=== PATIENT | female | born 1975 | race African-American/Black ===

== ENCOUNTER 2017-10-12 11:27 | Emergency (ER) | payer OTHER ==
[~2017-10-12] VITALS: Ht 157.5 cm; Wt 84.8 kg
[2017-10-12] MEDS ORDERED: MORPHINE SULFATE 4 MG/ML SYR IV STA (12:39)
[2017-10-12] MEDS ORDERED: SODIUM CHLORIDE 0.9% 1000ML 1,000 ML IV STA (12:39)
[2017-10-12] MEDS ORDERED: ONDANSETRON HCL INJ 2 MG/ML VIAL IV STA ×2 (12:39→15:15)
[2017-10-12] MEDS ORDERED: MORPHINE SULFATE 2 MG/ML SYR ONE (13:29)
[2017-10-12 14:28] LABS: BASOPHILS % 0.5 % (0.0-1.0); EOSINOPHILS # (AUTO) 0.1 (0.0-0.4); HEMOGLOBIN 13.5 g/dL (12.0-16.0); LYMPHOCYTES # (AUTO) 3.3 (1.0-3.2); LYMPHOCYTES % 43.2 % (18.0-39.1); MEAN CORPUSCULAR HEMOGLOBIN 31.8 pg (28-32); MEAN CORPUSCULAR HGB CONC 34.6 g/dL (31-35); MEAN CORPUSCULAR VOLUME 91.8 fL (81-99); MONOCYTES # (AUTO) 0.4 (0.2-0.8); NEUTROPHILS # (AUTO) 3.9 (2.1-6.9); NEUTROPHILS % 50.2 % (38.7-80.0); PLATELET COUNT 206 x10e3/uL (140-360); RED BLOOD COUNT 4.25 x10e6/uL (3.6-5.1)
[2017-10-12 14:30] LABS: BILIRUBIN,URINE NEGATIVE (NEGATIVE); KETONES,URINE NEGATIVE (NEGATIVE); LEUKOCYTE ESTERASE ,URINE NEGATIVE (NEGATIVE); NITRITE,URINE NEGATIVE (NEGATIVE); PROTEIN,URINE DIPSTICK NEGATIVE (NEGATIVE); URINE UROBILINOGEN 0.2 mg/dL (0.2 - 1)
[2017-10-12 14:33] LABS: CLARITY,URINE CLEAR (CLEAR); COLOR,URINE YELLOW (YELLOW)
[2017-10-12 14:43] LABS: ALANINE AMINOTRANSFERASE 122 IU/L (0-55); ALBUMIN 3.8 g/dL (3.5-5.0); ALKALINE PHOSPHATASE 94 IU/L (40-150); ANION GAP 13.6 mmol/L (8-16); BLOOD UREA NITROGEN 8 mg/dL (7-26); BUN/CREATININE RATIO 11 (6-25); CALCIUM 8.7 mg/dL (8.4-10.2); CARBON DIOXIDE 23 mmol/L (22-29); CHLORIDE 107 mmol/L (98-107); CREATININE, SERUM 0.71 mg/dL (0.57-1.11); EST GLOMERULAR FILTRATION RATE > 60 ML/MIN (60-); GLUCOSE 263 mg/dL (74-118); LIPASE 20 U/L (8-78); POTASSIUM 3.6 mmol/L (3.5-5.1); SODIUM 140 mmol/L (136-145)
[2017-10-12 14:57] LABS: EPITHELIAL CELLS,URINE RARE /LPF; RBC,URINE 0-5 /HPF (0-5); WBC,URINE (MAN) 0-5 /HPF (0-5)
--- NOTE | 2017-10-12 15:02 | Diagnostic Imaging Report ---
PROCEDURE: CT ABDOMEN AND PELVIS WITHOUT CONTRAST TECHNIQUE: The abdomen and pelvis were scanned utilizing a multidetector helical scanner from the diaphragm to the lesser trochanter. Patient was unable tolerate full dose of oral contrast. No IV contrast was administered due to history of iodine allergy. Coronal and sagittal multiplanar reformations were obtained. COMPARISON: Patients [facility], , SMALL BOWEL SERIES, 02/16/2017, 9:48. INDICATIONS: ABDOMINAL PAIN, NAUSEA FINDINGS: ABSENCE OF INTRAVENOUS CONTRAST DECREASES SENSITIVITY FOR DETECTION OF FOCAL LESIONS AND VASCULAR PATHOLOGY. LOWER THORAX: 3-4 mm pulmonary nodule in the right lower lobe (series 2 image 2). HEPATOBILIARY: Normal hepatic size and contour. No focal lesions. Mild prominence of the central intrahepatic bile ducts. The common bile duct measures approximately 9 mm at the dimitri hepatis. Cholecystectomy clips. SPLEEN: No splenomegaly. PANCREAS: No focal masses or ductal dilatation. ADRENALS: No adrenal nodules. KIDNEYS/URETERS: No hydronephrosis, stones, or solid mass lesions. PELVIC ORGANS/BLADDER: Bladder is unremarkable. Uterus is absent. No adnexal masses. PERITONEUM / RETROPERITONEUM: No free air or fluid. LYMPH NODES: No lymphadenopathy. VESSELS: Unremarkable. GI TRACT: No bowel dilation or evidence of obstruction. A small amount of contrast is noted in the stomach lumen only. Questionable mild wall thickening in the stomach antrum (series 2, image 25), however, the stomach is mostly decompressed. Rest of the bowel shows no wall thickening. Scattered diverticula in the ascending, transverse, descending, and sigmoid colon, without diverticulitis. No pericolonic inflammatory changes. Appendix is well identified and normal in caliber (coronal image 60). BONES AND SOFT TISSUES: No acute bony abnormalities. No lytic lesions. Tiny fat containing umbilical hernia. Soft tissues are otherwise unremarkable. IMPRESSION: 1. questionable mild wall thickening in the stomach antrum, which may be partly due to decompressed state. Gastritis is a less likely consideration, however, could be considered in the setting of nausea and vomiting. Rest of the bowel is unremarkable. 2. Mild prominence of the central intrahepatic bile ducts and common bile duct, likely reflecting post cholecystectomy status. 3. 3-4 mm pulmonary nodule in the right lower lobe. If this is a low risk patient, no further followup is indicated. 4. Colonic diverticulosis, without diverticulitis. Henri Swann M.D. Dictated by: Henri Swann M.D. on 10/12/2017 at 15:09 Electronically approved by: Henri Swann M.D. on 10/12/2017 at 15:09
[2017-10-12 15:04] LABS: PREGNANCY TEST, URINE NEGATIVE (NEGATIVE)
[2017-10-12] MEDS ORDERED: MORPHINE SULFATE 4 MG/ML SYR IV PRN (15:15)
[2017-10-12] MEDS ORDERED: MORPHINE SULFATE 5 MG/ML VIAL IV SCH (15:30)
[2017-10-12 16:44] VITALS: BP 136/90
== END 2017-10-12 16:40 | disposition home or self-care (01) ==
LOC: ER 11:27
DX: R10.84 Generalized abdominal pain (principal); R11.2 Nausea with vomiting, unspecified; R19.7 Diarrhea, unspecified; I10 Essential (primary) hypertension; E11.9 Type 2 diabetes mellitus without complications
CPT/HCPCS: 36415; 74176; 80053; 81001; 81025; 83690; 85025; 99284; J2270 ×2; J2405; J7030

== ENCOUNTER 2018-11-04 21:21 | Emergency (ER) | payer OTHER ==
[~2018-11-04] VITALS: Ht 157.5 cm; Wt 82.1 kg
--- OUTSIDE RECORDS SUMMARY | 2018-11-04 21:24 | XMS REPORT ---
[facility] Address Unknown Phone Unavailable Care Team Providers Care Field Marketing Lead Name Role Phone Rianna DIA Unavailable Unavailable Problems This patient has no known problems. Allergies, Adverse Reactions, Alerts This patient has no known allergies or adverse reactions. Medications This patient has no known medications. Results Test Description Test Time Test Comments Text Results Atomic Results Result Comments CT ABDOMEN/PELVIS WO [place] [address] Patient Name: NORMA MARIN MR #: [id number] : 1975 Age/Sex: 42/F Req #: [id number] Adm Physician: Ordered by: TORY RHODES OUTSIDE UPHOLSTERER Report #: [id number] Location: ER Room/Bed: Procedure: [id number] CT/CT ABDOMEN/PELVIS WO Exam Date: 10/12/17 Exam Time: 1415 REPORT STATUS: Signed PROCEDURE: CT ABDOMEN AND PELVIS WITHOUT CONTRAST TECHNIQUE: The abdomen and pelvis were scanned utilizing a multidetector helical scanner from the diaphragm to the lesser trochanter. Patient was unable tolerate full dose of oral contrast. No IV contrast was administered due to history of iodine allergy. Coronal and sagittal multiplanar reformations were obtained. COMPARISON: Patients [facility], DX, SMALL BOWEL SERIES, 02/16/2017, 9:48. INDICATIONS: ABDOMINAL PAIN, NAUSEA FINDINGS: ABSENCE OF INTRAVENOUS CONTRAST DECREASES SENSITIVITY FOR DETECTION OF FOCAL LESIONS AND VASCULAR PATHOLOGY. LOWER THORAX: 3-4 mm pulmonary nodule in the right lower lobe (series 2 image 2). HEPATOBILIARY: Normal hepatic size and contour. No focal lesions. Mild prominence of the central intrahepatic bile ducts. The common bile duct measures approximately 9 mm at the dimitri hepatis. Cholecystectomy clips. SPLEEN: No splenomegaly. PANCREAS: No focal masses or ductal dilatation. ADRENALS: No adrenal nodules. KIDNEYS/URETERS: No hydronephrosis, stones, or solid mass lesions. PELVIC ORGANS/BLADDER: Bladder is unremarkable. Uterus is absent. No adnexal masses. PERITONEUM / RETROPERITONEUM: No free air or fluid. LYMPH NODES: No lymphadenopathy. VESSELS: Unremarkable. GI TRACT: No bowel dilation or evidence of obstruction. A small amount of contrast is noted in the stomach lumen only. Questionable mild wall thickening in the stomach antrum (series 2, image 25), however, the stomach is mostly decompressed. Rest of the bowel shows no wall thickening. Scattered diverticula in the ascending, transverse, descending, and sigmoid colon, without diverticulitis. No pericolonic inflammatory changes. Appendix is well identified and normal in caliber (coronal image 60). BONES AND SOFT TISSUES: No acute bony abnormalities. No lytic lesions. Tiny fat containing umbilical hernia. Soft tissues are otherwise unremarkable. IMPRESSION: 1. questionable mild wall thickening in the stomach antrum, which may be partly due to decompressed state. Gastritis is a less likely consideration, however, could be considered in the setting of nausea and vomiting. Rest of the bowel is unremarkable. 2. Mild prominence of the central intrahepatic bile ducts and common bile duct, likely reflecting post cholecystectomy status. 3. 3-4 mm pulmonary nodule in the right lower lobe. If this is a low risk patient, no further followup is indicated. 4. Colonic diverticulosis, without diverticulitis. Andrew Swann M.D. Dictated by: Andrew Swann M.D. on 10/12/2017 at 15:09 Electronically approved by: Andrew Swann M.D. on 10/12/2017 at 15:09 Dictated By: ANDREW SWANN MD [id number] Transcribed By: SONU on 10/12/17 4026 COPY TO: TORY RHODES NP
--- OUTSIDE RECORDS SUMMARY | 2018-11-04 21:24 | XMS REPORT | Clinical Summary ---
Author Author [facility] Organization [facility] Address Unknown Phone Unavailable Care Team Providers Care Fuel Storage Technician Name Role Phone Dileep Carballo MD PCP Allergies Comments Active Allergy Reactions Severity Noted Date Aspirin Shortness Of High 12/19/2016 Breath Iodine 12/19/2016 Butorphanol Tartrate Hives 12/19/2016 Medications End Date Status Medication Sig Dispensed Refills Start Date Active PROAIR HFA 90 Inhale 1 puff 0 mcg/actuation inhaler every 4 7 (four) hours as needed. Active amLODIPine (NORVASC) 10 Take 10 mg by 0 mg tablet mouth daily. 7 Active metFORMIN (GLUCOPHAGE) Take 1,000 mg 0 1,000 mg tablet by mouth 2 7 (two) times a day with meals. Active metoprolol tartrate Take 50 mg by 0 (LOPRESSOR) 50 mg tablet mouth 2 (two) 7 times a day. Active keTOROlac (TORadol) 10 mg Take 10 mg by 0 tablet mouth every 6 (six) hours as needed for moderate pain. Active enalapril (VASOTEC) 10 MG Take 10 mg by 0 tablet mouth daily. Active HYDROcodone-acetaminophen Take 1 tablet 0 (NORCO) 10-325 mg per by mouth tablet every 6 (six) hours as needed for moderate pain. 11/03/2017 Discontinued acetaminophen-codeine Take 1 tablet 0 (TYLENOL WITH CODEINE #3) by mouth 300-30 mg per tablet every 4 (four) hours as needed for moderate pain. 11/08/2017 aluminum-magnesium Take 30 mL by 450 mL 0 hydroxide (MAALOX) mouth 3 8 200-200 mg/5 mL (three) times suspension a day before meals for 5 days. 11/08/2017 ranitidine (ZANTAC) 150 Take 1 tablet 10 tablet 0 MG tablet (150 mg 8 total) by mouth 2 (two) times a day for 5 days. 11/06/2017 acetaminophen-codeine Take 1 tablet 12 tablet 0 (TYLENOL WITH CODEINE #3) by mouth 8 300-30 mg per tablet every 6 (six) hours as needed for moderate pain for up to 3 days. 11/06/2017 ondansetron ODT Take 1 tablet 9 tablet 0 (ZOFRAN-ODT) 4 MG (4 mg total) 8 disintegrating tablet by mouth every 8 (eight) hours as needed for nausea or vomiting for up to 3 days. 02/26/2018 ciprofloxacin (CIPRO) 500 Take 1 tablet 20 tablet 0 MG tablet (500 mg 8 total) by mouth 2 (two) times a day for 10 days. 02/16/2018 fluconazole (DIFLUCAN) Take 1 tablet 1 tablet 0 150 MG tablet (150 mg 8 total) by mouth once for 1 dose. Status Hospital, Clinic, or Ordered Dose Route Frequency Start End Date Other Facility Date Administered Medication Active cefTRIAXone (ROCEPHIN) 1 g IV once 02/17/20 injection 1 g 18 Active Problems Not on file Encounters Care Team Description Date Type Specialty Blaise Kaufman MD Pyelonephritis (Primary Dx) 02/16/2018 Emergency Emergency Medicine - 02/17/2018 Hola Elizabeth PA-C Siddiqi, Amaan H, MD Sprain of right wrist, initial encounter (Primary Dx); Fall, initial encounter 12/17/2017 Emergency Emergency Medicine Sathish Chopra MD Non-intractable vomiting with nausea, unspecified vomiting type (Primary Dx); Hyperglycemia 11/03/2017 Emergency Emergency Medicine after 11/03/2017 Social History Date Tobacco Use Types Packs/Day Years Used Quit: 10/31/2016 Former Smoker Smokeless Tobacco: Never Used Alcohol Use Drinks/Week oz/Week Comments No Sex Assigned at Date Recorded Not on file Industry Job Start Date Occupation Not on file Not on file Not on file Travel End Travel History Travel Start No recent travel history available. Last Filed Vital Signs Time Taken Vital Sign Reading 02/16/2018 11:36 PM CDT Blood Pressure 145/90 02/16/2018 11:36 PM CDT Pulse 89 02/16/2018 11:36 PM CDT Temperature 37.1 C (98.8 F) 02/16/2018 11:36 PM CDT Respiratory Rate 17 02/16/2018 11:36 PM CDT Oxygen Saturation 95% - Inhaled Oxygen - Concentration 02/16/2018 6:34 PM CDT Weight 86.2 kg (190 lb) 02/16/2018 6:34 PM CDT Height 157.5 cm (5' 2") 02/16/2018 6:34 PM CDT Body Mass Index 34.75 Plan of Treatment Health Maintenance Due Date Last Done Comments CERVICAL CANCER SCREENING 1995 INFLUENZA VACCINE 05/31/2018 Procedures Comments Procedure Name Priority Date/Time Associated Diagnosis ZZESTIMATED GFR STAT 02/16/2018 9:38 PM CDT COMPREHENSIVE METABOLIC STAT 02/16/2018 PANEL 9:38 PM CDT HC COMPLETE BLD COUNT STAT 02/16/2018 W/AUTO DIFF 9:[address] RENAL STONE PROTOCOL STAT 02/16/2018 9:27 PM CDT URINALYSIS SCREEN AND STAT 02/16/2018 MICROSCOPY, WITH REFLEX 7:09 PM CDT TO CULTURE URINE CULTURE STAT 02/16/2018 7:09 PM CDT GRAM STAIN STAT 02/16/2018 7:09 PM CDT FL APPLY LONG ARM SPLINT Routine 12/17/2017 6:32 AM FURNACE ROASTER XR HAND 3+ VW RIGHT STAT 12/17/2017 2:10 AM FURNACE ROASTER XR WRIST 3+ VW RIGHT STAT 12/17/2017 2:10 AM FURNACE ROASTER XR ELBOW 3+ VW RIGHT STAT 12/17/2017 2:10 AM FURNACE ROASTER ECG ED PRELIMINARY Routine 11/03/2017 INTERPRETATION 8:09 PM FURNACE ROASTER HCG QUALITATIVE, URINE STAT 11/03/2017 SCREEN 5:59 PM FURNACE ROASTER URINALYSIS SCREEN AND STAT 11/03/2017 MICROSCOPY, WITH REFLEX 5:59 PM FURNACE ROASTER TO CULTURE URINE CULTURE STAT 11/03/2017 5:[address] RENAL STONE PROTOCOL STAT 11/03/2017 4:45 PM FURNACE ROASTER ECG 12-LEAD STAT 11/03/2017 3:29 PM FURNACE ROASTER XR CHEST 1 VW PORTABLE STAT 11/03/2017 2:54 PM FURNACE ROASTER HC COMPLETE BLD COUNT STAT 11/03/2017 W/AUTO DIFF 2:46 PM FURNACE ROASTER VENOUS BLOOD GAS STAT 11/03/2017 2:43 PM FURNACE ROASTER TROPONIN STAT 11/03/2017 2:40 PM FURNACE ROASTER ZZESTIMATED GFR STAT 11/03/2017 2:40 PM FURNACE ROASTER BETA HYDROXYBUTYRATE STAT 11/03/2017 2:40 PM FURNACE ROASTER LIPASE LEVEL STAT 11/03/2017 2:40 PM FURNACE ROASTER HEPATIC FUNCTION PANEL STAT 11/03/2017 2:40 PM FURNACE ROASTER BASIC METABOLIC PANEL STAT 11/03/2017 2:40 PM FURNACE ROASTER BEDSIDE GLUCOSE STAT 11/03/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 POC GLUCOSE Routine 11/03/2017 2:29 PM FURNACE ROASTER after 11/03/2017 Results * Estimated GFR (02/16/2018 9:38 PM CDT) Only the most recent of 2 results within the time period is included. GFR Non Af Amer >90 mL/min/1.73 m2 [facility]PART[facility] OF PATHOLOGY AND GENOMIC MEDICINE GFR Af Amer >90 mL/min/1.73 m2 [facility] DEPART[facility] OF Comment: PATHOLOGY AND Chronic kidney disease: <60 GENOMIC MEDICINE mL/min/1.73m2 Kidney failure: <15 mL/min/1.73m2 The estimated GFR is calculated from the IDMS-traceable Modification of Diet in Renal Disease Equation. The accuracy of the calculation is poor when the creatinine is normal. Calculated values >90 mL/min/1.73m2 are not reported. This equation has not been validated in children (<18 years), women, the elderly (>70 years), or ethnic groups other than Caucasians and Americans. Specimen Plasma specimen Performing Organization Address City/State/Zipcode Phone Number [facility] [address] [place] [address] PATHOLOGY AND GENOMIC MEDICINE * CBC with platelet and differential (02/16/2018 9:38 PM CDT) Only the most recent of 2 results within the time period is included. WBC 11.12 (H) 4.50 - 11.00 k/uL [facility] PATHOLOGY AND GENOMIC MEDICINE RBC 4.13 (L) 4.20 - 5.50 m/uL [facility] PATHOLOGY AND GENOMIC MEDICINE HGB 13.0 12.0 - 16.0 g/dL [facility] PATHOLOGY AND GENOMIC MEDICINE HCT 38.0 37.0 - 47.0 % [facility] PATHOLOGY AND GENOMIC MEDICINE MCV 92.0 82.0 - 100.0 fL [facility] OF PATHOLOGY AND GENOMIC MEDICINE MCH 31.5 27.0 - 34.0 pg [facility] DEPART[facility] OF PATHOLOGY AND GENOMIC MEDICINE MCHC 34.2 31.0 - 37.0 g/dL [facility] DEPARTMENT OF PATHOLOGY AND GENOMIC MEDICINE RDW - SD 40.8 37.0 - 55.0 fL [facility] DEPARTMENT OF PATHOLOGY AND GENOMIC MEDICINE MPV 12.0 8.8 - 13.2 fL [facility] OF PATHOLOGY AND GENOMIC MEDICINE Platelet count 166 150 - 400 k/uL [facility] OF PATHOLOGY AND GENOMIC MEDICINE Nucleated RBC 0.00 /100 WBC [facility] DEPARTMENT OF PATHOLOGY AND GENOMIC MEDICINE Neutrophils 48.5 39.0 - 69.0 % [facility] DE[facility] OF PATHOLOGY AND GENOMIC MEDICINE Lymphocytes 45.8 (H) 25.0 - 45.0 % [facility] DEPARTMENT OF PATHOLOGY AND GENOMIC MEDICINE Monocytes 4.1 0.0 - 10.0 % [facility] DE[facility]MENT OF PATHOLOGY AND GENOMIC MEDICINE Eosinophils 0.9 0.0 - 5.0 % [facility] DEPARTMENT OF PATHOLOGY AND GENOMIC MEDICINE Basophils 0.3 0.0 - 1.0 % [facility] DE[facility]MENT OF PATHOLOGY AND GENOMIC MEDICINE Specimen Blood Performing Organization Address City/State/Zipcode Phone Number [facility] [address] [place] [address] PATHOLOGY AND GENOMIC MEDICINE * Comprehensive metabolic panel (02/16/2018 9:38 PM CDT) Sodium 140 135 - 148 mEq/L [facility] DEPARTMENT OF PATHOLOGY AND GENOMIC MEDICINE Potassium 3.9 3.5 - 5.0 mEq/L [facility] OF PATHOLOGY AND GENOMIC MEDICINE Chloride 99 98 - 112 mEq/L [facility] OF PATHOLOGY AND GENOMIC MEDICINE CO2 27 24 - 31 mEq/L [facility] OF PATHOLOGY AND GENOMIC MEDICINE Anion gap 14 7 - 15 mEq/L [facility] DEPART[facility] OF Comment: PATHOLOGY AND Starting from January GENOMIC MEDICINE , anion gap calculation no longer incorporates potassium. Please note the change. BUN 14 6 - 20 mg/dL [facility] DEPARTMENT OF PATHOLOGY AND GENOMIC MEDICINE Creatinine 0.6 0.5 - 0.9 mg/dL [facility] DE[facility] OF PATHOLOGY AND GENOMIC MEDICINE Glucose 190 (H) 65 - 99 mg/dL [facility] DE[facility]MENT OF PATHOLOGY AND GENOMIC MEDICINE Calcium 9.9 8.3 - 10.2 mg/dL [facility] DEPARTMENT OF PATHOLOGY AND GENOMIC MEDICINE Protein 7.7 6.3 - 8.3 g/dL [facility] DEPARTMENT OF Comment: PATHOLOGY AND [place] GENOMIC MEDICINE 4.6-7.0 g/dL 1 week 4.4-7.6 g/dL 7 months-1year 5.1-7.3 g/dL 1-2 years5.6-7 .5 g/dL >3 years6.0-8 .0 g/dL 18-150 6.3-8.3 g/dL Albumin 4.5 3.5 - 5.0 g/dL [facility] DEPARTMENT OF PATHOLOGY AND GENOMIC MEDICINE A/G ratio 1.4 0.7 - 3.8 [facility] DE[facility] OF PATHOLOGY AND GENOMIC MEDICINE Alkaline phosphatase 88 35 - 104 U/L [facility] DEPARTMENT OF PATHOLOGY AND GENOMIC MEDICINE AST 35 10 - 35 U/L [facility] DEPARTMENT OF PATHOLOGY AND GENOMIC MEDICINE ALT 71 (H) 5 - 50 U/L [facility] OF PATHOLOGY AND GENOMIC MEDICINE Total bilirubin 0.3 0.0 - 1.2 mg/dL [facility] DEPART[facility] OF PATHOLOGY AND GENOMIC MEDICINE Specimen Plasma specimen Performing Organization Address City/State/Zipcode Phone [place] [address] [place] [address] PATHOLOGY AND GENOMIC MEDICINE * CT Renal Stone Protocol (02/16/2018 9:27 PM CDT) Only the most recent of 2 results within the time period is included. Narrative Performed At Examination:[facility] Clinical History: flank pain Comparison: None. Findings: CT scans are performed using radiation dose reduction techniques.Technical factors are evaluated and adjusted to ensure appropriate moderation of exposure.Automated dose management technology is applied to adjust radiation exposure while achieving a diagnostic quality image. CT scan of the abdomen and pelvis was performed without intravenous contrast. The liver, spleen, pancreas, and adrenal glands are unremarkable. The patient is status post cholecystectomy. The kidneys are within normal limits without hydronephrosis or urinary calculus. The appendix is visualized and unremarkable. No bowel thickening or fat stranding is seen. No bowel dilatation is seen. No free air or fluid is seen. Urinary bladder is not well-distended and not well evaluated. The uterus is nonvisualized. Visualized lung bases are clear. IMPRESSION: 1. No acute abnormality identified in the abdomen or pelvis. [facility]-[id number] Procedure Note Interface, Radiology Results Incoming - 02/16/2018 9:43 PM CDT Examination: CT RENAL STONE PROTOCOL Clinical History: flank pain Comparison: None. Findings: CT scans are performed using radiation dose reduction techniques. Technical factors are evaluated and adjusted to ensure appropriate moderation of exposure. Automated dose management technology is applied to adjust radiation exposure while achieving a diagnostic quality image. CT scan of the abdomen and pelvis was performed without intravenous contrast. The liver, spleen, pancreas, and adrenal glands are unremarkable. The patient is status post cholecystectomy. The kidneys are within normal limits without hydronephrosis or urinary calculus. The appendix is visualized and unremarkable. No bowel thickening or fat stranding is seen. No bowel dilatation is seen. No free air or fluid is seen. Urinary bladder is not well-distended and not well evaluated. The uterus is nonvisualized. Visualized lung bases are clear. IMPRESSION: 1. No acute abnormality identified in the abdomen or pelvis. [facility]-[id number] Performing Organization Address City/State/Zipcode Phone Number [facility] [address] [place] [address] * Urinalysis screen and microscopy, with reflex to culture (02/16/2018 7:09 PM CDT) Only the most recent of 2 results within the time period is included. Specimen site Clean catch [facility]PARTMENT OF PATHOLOGY AND GENOMIC MEDICINE Color, UA Yellow [facility]PARTMENT OF PATHOLOGY AND GENOMIC MEDICINE Appearance, UA Cloudy [facility] DEPARTMENT OF PATHOLOGY AND GENOMIC MEDICINE Specific gravity, UA 1.024 1.001 - 1.035 [facility] DEPARTMENT OF PATHOLOGY AND GENOMIC MEDICINE pH, UA 5.0 5.0 - 8.5 [facility] DEPARTMENT OF PATHOLOGY AND GENOMIC MEDICINE Protein, UA 2+ (A) Negative [facility] DEPARTMENT OF PATHOLOGY AND GENOMIC MEDICINE Glucose, UA Negative Negative [facility] DEPARTMENT OF PATHOLOGY AND GENOMIC MEDICINE Ketones, UA Trace (A) Negative [facility] DE[facility] OF PATHOLOGY AND GENOMIC MEDICINE Bilirubin, UA Negative Negative [facility] DEPARTMENT OF PATHOLOGY AND GENOMIC MEDICINE Blood, UA Negative Negative [facility] DEPARTMENT OF PATHOLOGY AND GENOMIC MEDICINE Nitrite, UA Negative Negative [facility] DEPARTMENT OF PATHOLOGY AND GENOMIC MEDICINE Urobilinogen, UA Negative <2.0 [facility] DEPARTMENT OF PATHOLOGY AND GENOMIC MEDICINE Leukocyte esterase, UA Negative Negative [facility] DEPARTMENT OF PATHOLOGY AND GENOMIC MEDICINE Epithelial cells, UA Many /HPF [facility] DEPARTMENT OF PATHOLOGY AND GENOMIC MEDICINE WBC, UA 21-40 (H) 0 - 4 /HPF [facility] DEPARTMENT OF PATHOLOGY AND GENOMIC MEDICINE RBC, UA 21-40 (H) 0 - 5 /HPF [facility]PART[facility] OF PATHOLOGY AND GENOMIC MEDICINE Bacteria, UA Trace None seen [facility] DEPARTMENT OF PATHOLOGY AND GENOMIC MEDICINE Yeast, UA None seen [facility] DEPARTMENT OF PATHOLOGY AND GENOMIC MEDICINE Yeast with pseudohyphae, None seen [facility] DEPARTMENT OF UA PATHOLOGY AND GENOMIC MEDICINE Specimen Urine Performing Organization Address City/State/Zipcode Phone [place] [address] [place] [address] PATHOLOGY AND GENOMIC MEDICINE * Gram stain (02/16/2018 7:09 PM CDT) Gram stain result Few WBC's [facility] DEPARTMENT OF Many Gram positive rods PATHOLOGY AND Comment: GENOMIC MEDICINE Specimen Information Specimen Source: Urine Specimen Site: Clean catch Specimen Urine Performing Organization Address City/State/Zipcode Phone Number [facility] DEPARTMENT OF [address] [place] [address] PATHOLOGY AND GENOMIC MEDICINE * Urine culture (02/16/2018 7:09 PM CDT) Only the most recent of 2 results within the time period is included. Urine culture isolate Mixed Gram positive radhika [facility] DEPARTMENT OF <10-1 cfu/ml PATHOLOGY AND (A) GENOMIC MEDICINE Comment: Specimen Information Specimen Source: Urine Specimen Site: Clean catch Specimen Urine Performing Organization Address [facility] Phone Number [facility] DEPARTMENT OF [address] [place] [address] PATHOLOGY AND GENOMIC MEDICINE * ORTHOPEDIC INJURY TREATMENT (12/17/2017 6:32 AM FURNACE ROASTER) Narrative Performed At Hola Elizabeth PA-C 12/17/20173:19 AM Orthopedic Injury Treatment Performed by: HOLA ELIZABETH Authorized by: HOLA ELIZABETH Consent: Consent obtained:Verbal Consent given by:Patient Risks discussed:Nerve damage, pain and vascular damage Alternatives discussed:No treatment Injury: Injury location:Forearm Forearm injury location:R forearm Pre-procedure assessment: Neurological function: normal Distal perfusion: normal Range of motion: reduced Procedure details: Immobilization:Splint Splint type:Sugar tong Supplies used:Elastic bandage, Ortho-Glass and cotton padding Post-procedure assessment: Neurological function: normal Distal perfusion: normal Range of motion: unchanged Patient tolerance of procedure:Tolerated well, no immediate complications * XR Hand 3+ Vw Right (12/17/2017 2:10 AM FURNACE ROASTER) Narrative Performed At EXAMINATION:XR HAND 3VW RIGHT [facility] CLINICAL HISTORY:fall COMPARISON:None IMPRESSION: No acute fractures or dislocations. Visualized joint spaces are anatomic. Marked soft tissue swelling is seen of the dorsal aspect of the right hand. [facility]-[id number] Procedure Note [facility], Radiology Results Incoming - 12/17/2017 2:29 AM FURNACE ROASTER EXAMINATION: XR HAND 3 VW RIGHT CLINICAL HISTORY: fall COMPARISON: None IMPRESSION: No acute fractures or dislocations. Visualized joint spaces are anatomic. Marked soft tissue swelling is seen of the dorsal aspect of the right hand. [facility]-[id number] Performing Organization Address City/[facility]/Zipcode Phone Number [facility] [address] [place] [address] * XR Wrist 3+ Vw Right (12/17/2017 2:10 AM FURNACE ROASTER) Narrative Performed At EXAMINATION:XR WRIST 3VW RIGHT [facility] CLINICAL HISTORY:fall COMPARISON:None. IMPRESSION: No acute fractures or dislocations. Visualized joint spaces are anatomic. No soft tissue abnormalities. [facility]-[id number] Procedure Note Interface, Radiology Results Incoming - 12/17/2017 2:31 AM FURNACE ROASTER EXAMINATION: XR WRIST 3 VW RIGHT CLINICAL HISTORY: fall COMPARISON: None. IMPRESSION: No acute fractures or dislocations. Visualized joint spaces are anatomic. No soft tissue abnormalities. [facility]-[id number] Performing Organization Address [facility] Phone Number [facility] [address] [place] [address] * XR Elbow 3+ Vw Right (12/17/2017 2:10 AM FURNACE ROASTER) Narrative Performed At EXAMINATION:XR ELBOW 3VW RIGHT [facility] CLINICAL HISTORY:fall COMPARISON:None IMPRESSION: No acute fractures or dislocations. Visualized joint spaces are anatomic. No soft tissue abnormalities. [facility]-[id number] Procedure Note Interface, Radiology Results Incoming - 12/17/2017 2:28 AM FURNACE ROASTER EXAMINATION: XR ELBOW 3 VW RIGHT CLINICAL HISTORY: fall COMPARISON: None IMPRESSION: No acute fractures or dislocations. Visualized joint spaces are anatomic. No soft tissue abnormalities. [facility]-[id number] Performing Organization Address [facility] Phone Number [facility] [address] [place] [address] * ECG ED Preliminary Interpretation - NOT AN ORDER (11/03/2017 8:09 PM FURNACE ROASTER) Narrative Performed At Sathish Chopra MD 11/03/20178:09 PM ECG ED Preliminary Interpretation - Not an Order Performed by: SATHISH CHOPRA Authorized by: SATHISH CHOPRA ECG reviewed by ED Physician in the absence of a soap inspector: yes Interpretation: Interpretation: normal Rate: ECG rate:76 ECG rate assessment: normal Rhythm: Rhythm: sinus rhythm Ectopy: Ectopy: none QRS: QRS axis:Normal Conduction: Conduction: normal ST segments: ST segments:Normal T waves: T waves: normal * hCG qualitative, urine screen (11/03/2017 5:59 PM FURNACE ROASTER) hCG qualitative, urine Negative Negative [facility] DEPARTMENT OF Comment: PATHOLOGY AND The manufacturers stated GENOMIC MEDICINE sensitivity of HcG test for serum is >/=10 mIU/ml and urine is >/=20mIU/ml. Specimen Urine Performing Organization Address [facility] Phone Number [facility] [id number] [place] [address] [place] [address] PATHOLOGY AND GENOMIC MEDICINE * ECG 12 lead (11/03/2017 3:29 PM FURNACE ROASTER) Ventricular rate 76 H MUSE Atrial rate 76 [facility] MUSE FL interval 172 [facility] MUSE QRSD interval 74 [facility] MUSE QT interval 382 H MUSE QTC interval 429 [facility] MUSE P axis 1 56 [facility] MUSE QRS axis 1 53 [facility] MUSE T wave axis 52 [facility] MUSE EKG impression Normal sinus rhythm with sinus [facility] MUSE arrhythmia-Normal ECG-In automated comparison with ECG of 05-MAY-2016 00:24,-No significant change was found- Performing Organization Address [facility] Phone Number [facility] MUSE [address] [place] [address] * XR Chest 1 Vw Portable (11/03/2017 2:54 PM FURNACE ROASTER) Narrative Performed At EXAMINATION:XR CHEST 1 VW PORTABLE [facility] CLINICAL HISTORY:vomitinghigh sugars COMPARISON:May 04, 2016 IMPRESSION: The lungs are clear. The heart is not enlarged. The bony structures are within normal limits. [facility]-[id number] Procedure Note Hm Interface, Radiology Results Incoming - 11/03/2017 3:00 PM FURNACE ROASTER EXAMINATION: XR CHEST 1 VW PORTABLE CLINICAL HISTORY: vomiting high sugars COMPARISON: May 04, 2016 IMPRESSION: The lungs are clear. The heart is not enlarged. The bony structures are within normal limits. [facility]-[id number] Performing Organization Address [facility] Phone Number [facility] [address] [place] [address] * Venous blood gas (11/03/2017 2:43 PM FURNACE ROASTER) pH, venous 7.42 7.32 - 7.42 [facility] DEPARTMENT OF PATHOLOGY AND GENOMIC MEDICINE pCO2, venous 44 (L) 45 - 51 mmHg [facility] DEPARTMENT OF PATHOLOGY AND GENOMIC MEDICINE pO2, venous 68 (H) 25 - 40 mmHg [facility] DEPARTMENT OF PATHOLOGY AND GENOMIC MEDICINE Base excess, venous 3 (H) -2 - 2 meq/L [facility] DEPARTMENT OF PATHOLOGY AND GENOMIC MEDICINE O2 saturation, venous 95 (H) 40 - 70 % [facility] DEPARTMENT OF PATHOLOGY AND GENOMIC MEDICINE Bicarbonate, venous 26.9 21.0 - 28.0 mmol/L [facility] DEPARTMENT OF PATHOLOGY AND GENOMIC MEDICINE FiO2, inspired O2% Unknown % [facility] DEPARTMENT OF PATHOLOGY AND GENOMIC MEDICINE Specimen Blood Performing Organization Address [facility] Phone Number [address] [place] [address] PATHOLOGY AND GENOMIC MEDICINE * Beta hydroxybutyrate (11/03/2017 2:40 PM FURNACE ROASTER) Beta hydroxybutyrate 0.28 (H) 0.02 - 0.27 mmol/L [facility] DEPARTMENT OF PATHOLOGY AND GENOMIC MEDICINE Specimen Serum Performing Organization Address [facility] [place] [address] PATHOLOGY AND GENOMIC MEDICINE * Troponin (11/03/2017 2:40 PM FURNACE ROASTER) Troponin <0.300 0.000 - 0.300 ng/mL [facility] DEPARTMENT OF Comment: PATHOLOGY AND 0.30 - 1.49 GENOMIC MEDICINE ng/mlMay indicate increased risk of acute coronary syndrome. >=1.5 ng/ml Consistent with acute myocardial infarction. The diagnostic value of a single normal or non-diagnostic result is questionable.Serial samples at 2-6 hour intervals are required to rule out acute myocardial injury. Specimen Plasma specimen Performing Organization Address [facility] Phone Number [address] [place] [address] PATHOLOGY AND GENOMIC MEDICINE * Lipase level (11/03/2017 2:40 PM FURNACE ROASTER) Lipase 33 13 - 60 U/L [facility] DEPARTMENT OF PATHOLOGY AND GENOMIC MEDICINE Specimen Plasma specimen Performing Organization Address [facility] Phone Number [address] [place] [address] PATHOLOGY AND GENOMIC MEDICINE * Hepatic function panel (11/03/2017 2:40 PM [facility]URNACE ROASTER) Albumin 4.4 3.5 - 5.0 g/dL [facility] DEPARTMENT OF PATHOLOGY AND GENOMIC MEDICINE Total bilirubin 0.7 0.0 - 1.2 mg/dL [facility] OF PATHOLOGY AND GENOMIC MEDICINE Bilirubin direct 0.2 0.0 - 0.3 mg/dL [facility] OF PATHOLOGY AND GENOMIC MEDICINE Alkaline phosphatase 110 (H) 35 - 104 U/L [facility] DEPARTMENT OF PATHOLOGY AND GENOMIC MEDICINE Protein 8.1 6.3 - 8.3 g/dL [facility] DEPARTMENT OF Comment: PATHOLOGY AND [facility] MEDICINE 4.6-7.0 g/dL 1 week 4.4-7.6 g/dL 7 months-1year 5.1-7.3 g/dL 1-2 years5.6-7 .5 g/dL >3 years6.0-8 .0 g/dL 18-150 6.3-8.3 g/dL ALT 93 (H) 5 - 50 U/L [facility] DEPARTMENT OF PATHOLOGY AND GENOMIC MEDICINE AST 82 (H) 10 - 35 U/L [facility] DEPARTMENT OF PATHOLOGY AND GENOMIC MEDICINE Specimen Plasma specimen Performing Organization Address [facility] [place] Phone Number [address] [place] [address] PATHOLOGY [facility] * Basic metabolic panel (11/03/2017 2:40 PM [facility]NA[facility] ROASTER) Sodium 137 135 - 148 mEq/L [facility] DEPARTMENT OF PATHOLOGY AND GENOMIC MEDICINE Potassium 4.0 3.5 - 5.0 mEq/L [facility] DE[facility]MENT OF PATHOLOGY AND GENOMIC MEDICINE Chloride 95 (L) 98 - 112 mEq/L [facility] DEPARTMENT OF PATHOLOGY AND GENOMIC MEDICINE CO2 25 24 - 31 mEq/L [facility] DE[facility]MENT OF PATHOLOGY AND GENOMIC MEDICINE Anion gap 17 (H) 7 - 15 mEq/L [facility] DEPARTMENT OF Comment: PATHOLOGY AND Starting from January [facility] , anion gap calculation no longer incorporates potassium. Please note the change. BUN 15 6 - 20 mg/dL [facility] DEPARTMENT OF PATHOLOGY AND GENOMIC MEDICINE Creatinine 0.6 0.5 - 0.9 mg/dL [facility] DEPARTMENT OF PATHOLOGY AND GENOMIC MEDICINE Glucose 280 (H) 65 - 99 mg/dL [facility] DEPARTMENT OF PATHOLOGY AND GENOMIC MEDICINE Calcium 10.2 8.3 - 10.2 mg/dL [facility] DEPARTMENT OF PATHOLOGY AND [employer] MEDICINE Specimen Plasma specimen Performing Organization Address [facility] [place] Phone Number [address] [place] [address] PATHOLOGY [facility] GENOMIC [facility] * Bedside glucose (11/03/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) POC glucose 254 Specimen Blood * POC glucose (11/03/2017 2:29 PM FURNACE ROASTER) POC glucose 254 (H) 65 - 99 mg/dL [facility] DEPARTMENT OF Comment: PATHOLOGY AND Meter ID: [id number] GENOMIC MEDICINE Pattern Repair Person: Caden Cruz Performing Organization Address City/State/Zipcode Phone [place] [address] [place] [address] PATHOLOGY AND GENOMIC MEDICINE after 11/03/2017 Insurance Payer Benefit Subscriber ID Type Phone Address Plan / Group AETNA AET[employer] PPO xxxxxxxxxx PPO OPEN CHOICE (Work) Advance Directives Patient has advance care planning documents on file. For more information, bee gamble contact: Terry Ayers [address] [place] [address]
--- NOTE | 2018-11-04 21:50 | NUR ---
PT DOES NOT WANT AN IV STATING "I'M TOO HARD OF A STICK. JUST TAKE BLOOD AND SEE WHAT IT SAYS"
--- NOTE | 2018-11-04 22:00 | NUR ---
PT GETTING RESTLESS IN BED, VERBALIZING THAT SHE WANTS PAIN MEDICATION FOR PAIN CONTROL
[2018-11-04] MEDS ORDERED: ONDANSETRON HCL INJ 2 MG/ML VIAL IV ONE (22:15)
--- NOTE | 2018-11-04 22:30 | NUR ---
PT REFUSES TORADOL IM INJECTION AND PHENERGAN IM INJECTION STATING "I TOOK A TORADOL AT HOME AND IT DID NOTHING, AND I DONT LIKE PHENERGEN. GIVE ME A ZOFRAN"
[2018-11-04] MEDS ORDERED: KETOROLAC TROMETHAMINE 60 MG/2 ML VIAL IM ONE (22:45)
[2018-11-04] MEDS ORDERED: PROMETHAZINE HCL (IM) 25 MG/ML VIAL IM ONE (22:45)
--- NOTE | 2018-11-04 22:45 | NUR ---
PT WANTS TO LEAVE AMA STATING SHE DOES NOT WANT TO WAIT FOR A CT SCAN AND WILL JUST "GO HOME AND DEAL WITH THE PAIN SINCE YOU WONT DO IT HERE"
== END 2018-11-04 22:45 | disposition left against medical advice (07) ==
LOC: FSED 21:21
DX: R10.33 Periumbilical pain (principal); R11.2 Nausea with vomiting, unspecified; R19.7 Diarrhea, unspecified; I10 Essential (primary) hypertension; E11.9 Type 2 diabetes mellitus without complications; Z87.19 Personal history of other diseases of the digestive system
CPT/HCPCS: 99283; J2550

== ENCOUNTER 2019-01-12 18:20 | Inpatient (IN) | payer OTHER ==
[~2019-01-12] VITALS: Ht 157.5 cm; Wt 78.0 kg
[~2019-01-12 18:20] MED LIST: AMLODIPINE BESYL5 MG PO; HYDROCORTISONE5 MG PO; LEVAQUIN500 MG PO; METFORMIN HCL1000 MG PO; METOPROLOL TART50 MG PO; MULTIPLE VITAM1 EACH PO; OMEPRAZOLE40 MG PO; PANTOPRAZOLE SO40 MG PO; PROGESTERONE100 MG PO; TYLENOL WITH C1 EACH PO; VASOTEC10 MG PO
--- OUTSIDE RECORDS SUMMARY | 2019-01-12 18:24 | XMS REPORT | Clinical Summary ---
Author Author [facility] Organization [facility] Address Unknown Phone Unavailable Care Team Providers Care Street Inspector Name Role Phone Dileep Carballo MD PCP [...] hours as needed for moderate pain. Active ciprofloxacin (CIPRO) 500 ciprofloxacin 0 MG tablet 500 mg tablet Active fluconazole (DIFLUCAN) fluconazole 0 150 MG tablet 150 mg tablet Active metroNIDAZOLE (FLAGYL) metronidazole 0 500 MG tablet 500 mg tablet Active omeprazole (PriLOSEC) 40 Take by mouth 2 MG capsule daily. 9 Active sucralfate (CARAFATE) 1 sucralfate 1 0 gram tablet gram tablet Active amLODIPine (NORVASC) 5 mg 0 tablet 8 Active albuterol (PROAIR ProAir HFA 90 0 HFA,PROVENTIL mcg/actuation HFA,VENTOLIN HFA) 90 aerosol mcg/actuation inhaler inhaler Active enalapril (VASOTEC) 10 MG enalapril 0 tablet maleate 10 mg tablet Active metFORMIN (GLUCOPHAGE) metformin 0 1,000 mg tablet 1,000 mg tablet Active metoprolol tartrate metoprolol 0 (LOPRESSOR) 50 mg tablet tartrate 50 mg tablet 02/26/2018 ciprofloxacin (CIPRO) 500 Take 1 tablet 20 tablet 0 MG tablet (500 mg 8 total) by mouth 2 (two) times a day for 10 days. 02/16/2018 fluconazole (DIFLUCAN) Take 1 tablet 1 tablet 0 150 MG tablet (150 mg 8 total) by mouth once for 1 dose. 12/05/2018 dicyclomine (BENTYL) 20 Take 1 tablet 14 tablet 0 mg tablet (20 mg total) 9 by mouth every 6 (six) hours as needed (pain) for up to 7 days. 12/28/2018 ondansetron ODT (ZOFRAN Take 1 tablet 6 tablet 0 ODT) 4 MG disintegrating (4 mg total) 9 tablet by mouth every 8 (eight) hours as needed for nausea or vomiting for up to 30 days. 01/04/2019 sucralfate (CARAFATE) 1 Take 1 tablet 120 tablet 0 gram tablet (1 g total) 9 by mouth 4 (four) times a day for 30 days. 01/04/2019 pantoprazole (PROTONIX) Take 1 tablet 30 tablet 0 20 MG EC tablet (20 mg total) 9 by mouth daily for 30 days. Status Hospital, Clinic, or Ordered Dose Route Frequency Start End Date Other Facility Date Administered Medication Active cefTRIAXone (ROCEPHIN) 1 g IV once 02/17/20 injection 1 g 18 Active Problems Not on file Encounters Care Team Description Date Type Specialty Juan Yee MD Epigastric abdominal pain (Primary Dx) 12/05/2018 Emergency Emergency Medicine Juan Yee MD Gastroenteritis (Primary Dx); Generalized abdominal pain 11/28/2018 Emergency Emergency Medicine Blaise Kaufman MD Pyelonephritis (Primary Dx) 02/16/2018 Emergency Emergency Medicine - 02/17/2018 after 01/11/2018 Social History Date Tobacco Use Types Packs/Day Years Used Light Tobacco Smoker Cigarettes Smokeless Tobacco: Never Used Alcohol Use Drinks/Week oz/Week Comments No Sex Assigned at Date Recorded Not on file Industry Job Start Date Occupation Not on file Not on file Not on file Travel End Travel History Travel Start No recent travel history available. Last Filed Vital Signs Time Taken Vital Sign Reading 12/05/2018 8:56 PM ACCOUNT DEVELOPMENT ASSOCIATE Blood Pressure 150/89 12/05/2018 8:56 PM ACCOUNT DEVELOPMENT ASSOCIATE Pulse 79 12/05/2018 8:56 PM ACCOUNT DEVELOPMENT ASSOCIATE Temperature 36.5 C (97.7 F) 12/05/2018 8:56 PM ACCOUNT DEVELOPMENT ASSOCIATE Respiratory Rate 16 12/05/2018 8:56 PM ACCOUNT DEVELOPMENT ASSOCIATE Oxygen Saturation 98% - Inhaled Oxygen - Concentration 12/05/2018 6:25 PM ACCOUNT DEVELOPMENT ASSOCIATE Weight 83.5 kg (184 lb) 12/05/2018 6:25 PM ACCOUNT DEVELOPMENT ASSOCIATE Height 157.5 cm (5' 2") 12/05/2018 6:25 PM ACCOUNT DEVELOPMENT ASSOCIATE Body Mass Index 33.65 Plan of Treatment Health Maintenance Due Date Last Done Comments CERVICAL CANCER SCREENING 1995 INFLUENZA VACCINE 05/31/2018 Procedures Comments Procedure Name Priority Date/Time Associated Diagnosis CT ABDOMEN PELVIS WO STAT 12/05/2018 CONTRAST 7:17 PM ACCOUNT DEVELOPMENT ASSOCIATE XR CHEST 1 VW PORTABLE STAT 12/05/2018 7:10 PM ACCOUNT DEVELOPMENT ASSOCIATE HCG QUALITATIVE, URINE STAT 12/05/2018 SCREEN 7:00 PM ACCOUNT DEVELOPMENT ASSOCIATE URINALYSIS SCREEN AND STAT 12/05/2018 MICROSCOPY, WITH REFLEX 7:00 PM ACCOUNT DEVELOPMENT ASSOCIATE TO CULTURE TROPONIN STAT 12/05/2018 6:50 PM ACCOUNT DEVELOPMENT ASSOCIATE ESTIMATED GFR STAT 12/05/2018 6:50 PM ACCOUNT DEVELOPMENT ASSOCIATE LIPASE LEVEL STAT 12/05/2018 6:50 PM ACCOUNT DEVELOPMENT ASSOCIATE AMYLASE LEVEL STAT 12/05/2018 6:50 PM ACCOUNT DEVELOPMENT ASSOCIATE COMPREHENSIVE METABOLIC STAT 12/05/2018 PANEL 6:50 PM ACCOUNT DEVELOPMENT ASSOCIATE HC COMPLETE BLD COUNT STAT 12/05/2018 W/AUTO DIFF 6:50 PM ACCOUNT DEVELOPMENT ASSOCIATE ECG ED PRELIMINARY Routine 12/05/2018 INTERPRETATION 6:28 PM ACCOUNT DEVELOPMENT ASSOCIATE ECG 12-LEAD Routine 12/05/2018 6:21 PM ACCOUNT DEVELOPMENT ASSOCIATE ECG ED PRELIMINARY Routine 11/28/2018 INTERPRETATION 9:33 PM ACCOUNT DEVELOPMENT ASSOCIATE ECG 12-LEAD STAT 11/28/2018 8:58 PM ACCOUNT DEVELOPMENT ASSOCIATE ESTIMATED GFR STAT 11/28/2018 7:52 PM ACCOUNT DEVELOPMENT ASSOCIATE TROPONIN STAT 11/28/2018 7:52 PM ACCOUNT DEVELOPMENT ASSOCIATE CREATINE KINASE, TOTAL STAT 11/28/2018 (CPK) 7:52 PM ACCOUNT DEVELOPMENT ASSOCIATE LIPASE LEVEL STAT 11/28/2018 7:52 PM ACCOUNT DEVELOPMENT ASSOCIATE COMPREHENSIVE METABOLIC STAT 11/28/2018 PANEL 7:52 PM ACCOUNT DEVELOPMENT ASSOCIATE PARTIAL THROMBOPLASTIN STAT 11/28/2018 TIME (PTT) 7:52 PM ACCOUNT DEVELOPMENT ASSOCIATE PROTHROMBIN TIME WITH INR STAT 11/28/2018 7:52 PM ACCOUNT DEVELOPMENT ASSOCIATE HC COMPLETE BLD COUNT STAT 11/28/2018 W/AUTO DIFF 7:52 PM ACCOUNT DEVELOPMENT ASSOCIATE URINALYSIS SCREEN AND STAT 11/28/2018 MICROSCOPY, WITH REFLEX 7:45 PM ACCOUNT DEVELOPMENT ASSOCIATE TO CULTURE CT ABDOMEN PELVIS WO STAT 11/28/2018 CONTRAST 7:35 PM ACCOUNT DEVELOPMENT ASSOCIATE XR CHEST 2 VW STAT 11/28/2018 7:19 PM ACCOUNT DEVELOPMENT ASSOCIATE ZZESTIMATED GFR STAT 02/16/2018 9:38 PM CDT COMPREHENSIVE METABOLIC STAT 02/16/2018 PANEL 9:38 PM CDT HC COMPLETE BLD COUNT STAT 02/16/2018 W/AUTO DIFF 9:[address] RENAL STONE PROTOCOL STAT 02/16/2018 9:27 PM CDT URINALYSIS SCREEN AND STAT 02/16/2018 MICROSCOPY, WITH REFLEX 7:09 PM CDT TO CULTURE URINE CULTURE STAT 02/16/2018 7:09 PM CDT GRAM STAIN STAT 02/16/2018 7:09 PM CDT after 01/11/2018 Results * CT Abdomen Pelvis Wo Contrast (12/05/2018 7:17 PM ACCOUNT DEVELOPMENT ASSOCIATE) Only the most recent of 2 results within the time period is included. Narrative Performed At EXAMINATION:CT ABDOMEN PELVIS WO CONTRAST [facility] CLINICAL HISTORY:Abd painunspecified COMPARISON:CT abdomen and pelvis without contrast dated 11/28/2018 TECHNIQUE:CT of the abdomen and pelvis without intravenous contrast. Absence of intravenous contrast decreases sensitivity for detection of focal lesions and vascular pathology. CT imaging was performed with iterative reconstruction techniques and/or automated exposure control to reduce radiation dose. FINDINGS: LOWER THORAX:The visualized heart and pericardium appear unremarkable. There is a calcified granuloma in the right lower lobe. There is minimal subpleural atelectasis/scarring in the dependent portions of both lungs.There is no pleural effusion. HEPATOBILIARY:There is mildly diffusely decreased attenuation of the liver parenchyma, consistent with hepatic steatosis.There is no definite suspicious solid mass.Patient is status post cholecystectomy.There is no biliary ductal dilatation. SPLEEN:No splenomegaly. PANCREAS:No focal masses or ductal dilation. ADRENALS:No adrenal nodules. KIDNEYS:There is no urolithiasis.There is no hydroureter/hydronephrosis.There is no definite suspicious solid mass. PELVIC ORGANS:The urinary bladder appears unremarkable. Patient is status post hysterectomy. The bilateral adnexal regions appear grossly unremarkable. GI TRACT:There is mild circumferential wall thickening of the lower esophagus which may reflect under distention and/or esophagitis. There is a small hiatal hernia.There is no gastrointestinal distention to suggest obstruction. There is no definite pathologic gastrointestinal wall thickening, with note made that the absence of enteral contrast and underdistention limit evaluation. There are a few scattered small colonic diverticula without evidence of acute diverticulitis.There is no pneumatosis intestinalis.There is increased fecal retention, suggestive of constipation.The appendix appears normal. PERITONEUM/RETROPERITONEUM:There is no free intraperitoneal air. There is no free fluid or focal drainable collection. LYMPHATIC: There is no lymphadenopathy. VESSELS: There is trace atherosclerotic calcification of the arterial vasculature.There is no evidence of aortic aneurysm. BONES AND SOFT TISSUES:The visualized skeleton appears unremarkable. Postsurgical changes are seen along the ventral abdominal wall. There is mild focal eventration of the periumbilical abdominal wall. There is no focal drainable fluid collection. IMPRESSION: No acute abdominal or pelvic pathology. [id number] Procedure Note [facility], Radiology Results Incoming - 12/05/2018 7:25 PM ACCOUNT DEVELOPMENT ASSOCIATE EXAMINATION: CT ABDOMEN PELVIS WO CONTRAST CLINICAL HISTORY: Abd pain unspecified COMPARISON: CT abdomen and pelvis without contrast dated 11/28/2018 TECHNIQUE: CT of the abdomen and pelvis without intravenous contrast. Absence of intravenous contrast decreases sensitivity for detection of focal lesions and vascular pathology. CT imaging was performed with iterative reconstruction techniques and/or automated exposure control to reduce radiation dose. FINDINGS: LOWER THORAX: The visualized heart and pericardium appear unremarkable. There is a calcified granuloma in the right lower lobe. There is minimal subpleural atelectasis/scarring in the dependent portions of both lungs. There is no pleural effusion. HEPATOBILIARY: There is mildly diffusely decreased attenuation of the liver parenchyma, consistent with hepatic steatosis. There is no definite suspicious solid mass. Patient is status post cholecystectomy. There is no biliary ductal dilatation. SPLEEN: No splenomegaly. PANCREAS: No focal masses or ductal dilation. ADRENALS: No adrenal nodules. KIDNEYS: There is no urolithiasis. There is no hydroureter/hydronephrosis. There is no definite suspicious solid mass. PELVIC ORGANS: The urinary bladder appears unremarkable. Patient is status post hysterectomy. The bilateral adnexal regions appear grossly unremarkable. GI TRACT: There is mild circumferential wall thickening of the lower esophagus which may reflect under distention and/or esophagitis. There is a small hiatal hernia. There is no gastrointestinal distention to suggest obstruction. There is no definite pathologic gastrointestinal wall thickening, with note made that the absence of enteral contrast and underdistention limit evaluation. There are a few scattered small colonic diverticula without evidence of acute diverticulitis. There is no pneumatosis intestinalis. There is increased fecal retention, suggestive of constipation. The appendix appears normal. PERITONEUM/RETROPERITONEUM: There is no free intraperitoneal air. There is no free fluid or focal drainable collection. LYMPHATIC: There is no lymphadenopathy. VESSELS: There is trace atherosclerotic calcification of the arterial vasculature. There is no evidence of aortic aneurysm. BONES AND SOFT TISSUES: The visualized skeleton appears unremarkable. Postsurgical changes are seen along the ventral abdominal wall. There is mild focal eventration of the periumbilical abdominal wall. There is no focal drainable fluid collection. IMPRESSION: No acute abdominal or pelvic pathology. [id number] Performing Organization Address [facility] Phone Number [facility] [address] [place] [address] * XR Chest 1 Vw Portable (12/05/2018 7:10 PM ACCOUNT DEVELOPMENT ASSOCIATE) Narrative Performed At EXAMINATION:XR CHEST 1 VW PORTABLE RADIMOUNT [facility] CLINICAL HISTORY:Shortness of breath TECHNIQUE:XR CHEST 1 VW PORTABLE COMPARISON:Chest radiograph dated 11/28/2018 FINDINGS: Lines/tubes:None. Heart and mediastinum:Unremarkable Lungs:There is minimal atelectasis/scarring at the lung bases.There is no focal consolidation. There is no evidence of pulmonary edema. Pleura:There is no pleural effusion. There is no pneumothorax. Bones and Soft Tissues:Unremarkable. IMPRESSION: No acute cardiopulmonary abnormality. [id number] Procedure Note Hm Interface, Radiology Results Incoming - 12/05/2018 7:21 PM ACCOUNT DEVELOPMENT ASSOCIATE EXAMINATION: XR CHEST 1 VW PORTABLE CLINICAL HISTORY: Shortness of breath TECHNIQUE: XR CHEST 1 VW PORTABLE COMPARISON: Chest radiograph dated 11/28/2018 FINDINGS: Lines/tubes: None. Heart and mediastinum: Unremarkable Lungs: There is minimal atelectasis/scarring at the lung bases. There is no focal consolidation. There is no evidence of pulmonary edema. Pleura: There is no pleural effusion. There is no pneumothorax. Bones and Soft Tissues: Unremarkable. IMPRESSION: No acute cardiopulmonary abnormality. [id number] Performing Organization Address [facility] Phone Number [facility] [address] [place] [address] * Urinalysis screen and microscopy, with reflex to culture (12/05/2018 7:00 PM ACCOUNT DEVELOPMENT ASSOCIATE) Only the most recent of 3 results within the time period is included. Specimen site Clean catch [facility] Color, UA Straw [facility] Appearance, UA Clear [facility] Specific gravity, UA 1.008 1.001 - 1.035 [facility] pH, UA 5.0 5.0 - 8.5 [facility] Protein, UA Negative Negative [facility] Glucose, UA Negative Negative [facility] Ketones, UA Negative Negative [facility] Bilirubin, UA Negative Negative [facility] Blood, UA Negative Negative [facility] Nitrite, UA Negative Negative [facility] Urobilinogen, UA Negative <2.0 [facility] Leukocyte esterase, UA Negative Negative [facility] Epithelial cells, UA Few /HPF [facility] Round epithelial cells, Few 0 - 1 /HPF [facility] WBC, UA 0-5 0 - 4 /HPF [facility] RBC, UA 0-5 0 - 5 /HPF [facility] Bacteria, UA Trace None seen [facility] Yeast, UA None seen [facility] Yeast with pseudohyphae, None seen [facility] Specimen Urine Performing Organization Address [facility] Phone Number [address] [place] [address] PATHOLOGY AND GENOMIC MEDICINE [address] * hCG qualitative, urine screen (12/05/2018 7:00 PM ACCOUNT DEVELOPMENT ASSOCIATE) hCG qualitative, urine Negative Negative [facility] Comment: [facility] The manufacturers stated sensitivity of HcG test for serum is >/=10 mIU/ml and urine is >/=20mIU/ml. Specimen Urine Performing Organization Address [facility] Phone Number [address] [place] [address] PATHOLOGY AND GENOMIC MEDICINE [address] * Estimated GFR (12/05/2018 6:50 PM ACCOUNT DEVELOPMENT ASSOCIATE) Only the most recent of 2 results within the time period is included. Estimated GFR >=90 mL/min/1.73 m2 [facility] Comment: [facility] CatergoryUnitsInte rpretation G1 >=90 Normal or high G2 60-89Mildly decreased [id number] Mildly to moderately decreased [id number] Moderately to severely decreased G4 15-29Severely decreased G5 <15Kidney failure The eGFR was calculated using the Chronic Kidney Disease Epidemiology Collaboration (CKD-EPI) equation. Interpretation is based on recommendations of the National Kidney Foundation-Kidney Disease Outcomes Quality Initiative (NKF-KDOQI) published in 2014. Specimen Plasma specimen Performing Organization Address [facility] Phone Number [address] [place] [address] PATHOLOGY AND GENOMIC MEDICINE [address] * Troponin (12/05/2018 6:50 PM ACCOUNT DEVELOPMENT ASSOCIATE) Only the most recent of 2 results within the time period is included. Troponin <0.300 0.000 - 0.300 ng/mL [facility] Comment: [facility] 0.30 - 1.49 ng/mlMay indicate increased risk of acute coronary syndrome. >=1.5 ng/ml Consistent with acute myocardial infarction. The diagnostic value of a single normal or non-diagnostic result is questionable.Serial samples at 2-6 hour intervals are required to rule out acute myocardial injury. Specimen Plasma specimen Performing Organization Address [facility] Phone Number [address] [place] [address] PATHOLOGY AND GENOMIC MEDICINE [address] * CBC with platelet and differential (12/05/2018 6:50 PM ACCOUNT DEVELOPMENT ASSOCIATE) Only the most recent of 3 results within the time period is included. WBC 10.70 4.50 - 11.00 k/uL [facility] RBC 4.19 (L) 4.20 - 5.50 m/uL [facility] HGB 12.9 12.0 - 16.0 g/dL [facility] HCT 39.0 37.0 - 47.0 % [facility] MCV 93.1 82.0 - 100.0 fL [facility] MCH 30.8 27.0 - 34.0 pg [facility] MCHC 33.1 31.0 - 37.0 g/dL [facility] RDW - SD 43.0 37.0 - 55.0 fL [facility] MPV 12.0 8.8 - 13.2 fL [facility] Platelet count 166 150 - 400 k/uL [facility] Nucleated RBC 0.00 /100 WBC [facility] Neutrophils 47.0 39.0 - 69.0 % [facility] Lymphocytes 46.9 (H) 25.0 - 45.0 % [facility] Monocytes 4.4 0.0 - 10.0 % [facility] Eosinophils 0.9 0.0 - 5.0 % [facility] Basophils 0.4 0.0 - 1.0 % [facility] Specimen Blood Performing Organization Address [facility] Phone Number [address] [place] [address] PATHOLOGY AND GENOMIC MEDICINE [address] * Lipase level (12/05/2018 6:50 PM ACCOUNT DEVELOPMENT ASSOCIATE) Only the most recent of 2 results within the time period is included. Lipase 41 13 - 60 U/L [facility] Specimen Plasma specimen Performing Organization Address [facility] Phone Number [address] [place] [address] PATHOLOGY AND GENOMIC MEDICINE [address] * Amylase level (12/05/2018 6:50 PM ACCOUNT DEVELOPMENT ASSOCIATE) Amylase 52 13 - 73 U/L [facility] Specimen Plasma specimen Performing Organization Address [facility] Phone Number [address] [place] [address] PATHOLOGY AND GENOMIC MEDICINE [address] * Comprehensive metabolic panel (12/05/2018 6:50 PM ACCOUNT DEVELOPMENT ASSOCIATE) Only the most recent of 3 results within the time period is included. Sodium 139 135 - 148 mEq/L [facility] Potassium 3.8 3.5 - 5.0 mEq/L [facility] Chloride 98 98 - 112 mEq/L [facility] CO2 23 (L) 24 - 31 mEq/L [facility] Anion gap 18@ANIO (H) 7 - 15 mEq/L [facility] BUN 9 6 - 20 mg/dL [facility] Creatinine 0.60 0.50 - 0.90 mg/dL [facility] Glucose 232 (H) 65 - 99 mg/dL [facility] Calcium 10.0 8.3 - 10.2 mg/dL [facility] Protein 8.0 6.3 - 8.3 g/dL [facility] Comment: [facility] 4.6-7.0 g/dL 1 week 4.4-7.6 g/dL 7 months-1year 5.1-7.3 g/dL 1-2 years5.6-7 .5 g/dL >3 years6.0-8 .0 g/dL 18-150 6.3-8.3 g/dL Albumin 4.8 3.5 - 5.0 g/dL [facility] A/G ratio 1.5 0.7 - 3.8 [facility] Alkaline phosphatase 97 35 - 104 U/L [facility] AST 48 (H) 10 - 35 U/L [facility] ALT 61 (H) 5 - 50 U/L [facility] Total bilirubin 0.4 0.0 - 1.2 mg/dL [facility] Specimen Plasma specimen Performing Organization Address City/State/Zipcode Phone Number [facility] [place] [id number] [place] [address] [place] [address] PATHOLOGY AND GENOMIC MEDICINE [facility] [id number] [place] [address] * ECG ED Preliminary Interpretation - Not an Order (12/05/2018 6:28 PM ACCOUNT DEVELOPMENT ASSOCIATE) Only the most recent of 2 results within the time period is included. Narrative Performed At Juan Yee MD 12/05/20189:03 PM ECG ED Preliminary Interpretation - Not an Order Performed by: Juan Yee MD Authorized by: Juan Yee MD ECG reviewed by ED Physician in the absence of a airline operations agent: yes Interpretation: Interpretation: normal Rate: ECG rate:83 ECG rate assessment: normal Rhythm: Rhythm: sinus rhythm Ectopy: Ectopy: none QRS: QRS axis:Normal QRS intervals:Normal Conduction: Conduction: normal ST segments: ST segments:Normal T waves: T waves: normal * ECG 12 lead (12/05/2018 6:21 PM ACCOUNT DEVELOPMENT ASSOCIATE) Only the most recent of 2 results within the time period is included. Ventricular rate 83 [facility] Atrial rate 83 [facility] ME interval 174 [facility] QRSD interval 72 [facility] QT interval 356 [facility] QTC interval 418 [facility] P axis 1 18 [facility] QRS axis 1 26 [facility] T wave axis 41 [facility] EKG impression Normal sinus rhythm-Normal [facility] MUSE ECG-In automated comparison with ECG of 28-NOV-2018 20:58,-No significant change was found- Narrative Performed At Performing Organization Address [facility] Phone Number [facility] [address] [place] [address] * Partial thromboplastin time, activated (11/28/2018 7:52 PM ACCOUNT DEVELOPMENT ASSOCIATE) PTT 32.9 23.0 - 36.0 sec [facility] Comment: [facility] PTT therapeutic range for unfractionated heparin is 61.0-112.0 seconds which corresponds to Anti-Xa 0.3-0.7 U/ml. Specimen Blood Performing Organization Address [facility]/Zipcode [place] [address] [place] [address] PATHOLOGY AND GENOMIC MEDICINE [facility] [address] [place] [place] [address] [facility] * Prothrombin time with INR (11/28/2018 7:52 PM ACCOUNT DEVELOPMENT ASSOCIATE) Prothrombin time 12.3 11.5 - 14.5 sec [facility] INR 0.9 [facility] Comment: [facility] The International Normalized Ratio (INR) is a therapeutic monitoring tool for patients who are stable on oral anticoagulant therapy. An INR of 2.0-3.0 is suggested for deep vein thrombosis/pulmonary embolism. Specimen Blood Performing Organization Address [facility]/Zipcode Phone Number [address] [place] [address] PATHOLOGY AND GENOMIC MEDICINE [address] * Creatine kinase, total (CPK) (11/28/2018 7:52 PM ACCOUNT DEVELOPMENT ASSOCIATE) Creatine kinase 161 26 - 192 U/L [facility] Specimen Plasma specimen Performing Organization Address [facility] Phone Number [address] [place] [address] PATHOLOGY AND GENOMIC MEDICINE [address] * XR Chest 2 Vw (11/28/2018 7:19 PM ACCOUNT DEVELOPMENT ASSOCIATE) Narrative Performed At [facility], 11/28/2018 [facility] Clinical history:Epigastric pain Technique: PA and lateral views chest. Comparison: None DISCUSSION: The lungs are clear and symmetrically inflated. No pleural effusions. Cardiac size and mediastinal contour are normal. Pulmonary vasculature is normal.The skeleton is grossly intact. IMPRESSION: No acute abnormality. Procedure Note Interface, Radiology Results Incoming - 11/28/2018 7:27 PM ACCOUNT DEVELOPMENT ASSOCIATE TWO VIEW CHEST, 11/28/2018 Clinical history: Epigastric pain Technique: PA and lateral views chest. Comparison: None DISCUSSION: The lungs are clear and symmetrically inflated. No pleural effusions. Cardiac size and mediastinal contour are normal. Pulmonary vasculature is normal. The skeleton is grossly intact. IMPRESSION: No acute abnormality. Performing Organization Address City/[facility]/Zipcode Phone Number [facility] [address] [place] [address] * Estimated GFR (02/16/2018 9:38 PM CDT) GFR Non Af Amer >90 mL/min/1.73 m2 [facility] DEPARTMENT OF PATHOLOGY AND GENOMIC MEDICINE GFR Af Amer >90 mL/min/1.73 m2 [facility] DEPARTMENT OF Comment: PATHOLOGY AND Chronic kidney [...] specimen Performing Organization Address City/State/Zipcode Phone [place] [address] [place] [address] PATHOLOGY AND GENOMIC MEDICINE * CT Renal Stone Protocol (02/16/2018 9:27 PM CDT) Narrative Performed At Examination:CT RENAL STONE PROTOCOL [facility] Clinical History: flank pain Comparison: None. Findings: [...] abnormality identified in the abdomen or pelvis. [facility]-[id number] Procedure Note Interface, Radiology Results [facility] - 02/16/2018 9:43 PM CDT Examination: CT [...] abnormality identified in the abdomen or pelvis. [id number] Performing Organization Address City/[facility]/Zipcode Phone Number [facility] [address] [place] [address] * Gram stain (02/16/2018 7:09 PM CDT) Gram stain result Few WBC's [facility] DEPARTMENT OF Many Gram positive rods PATHOLOGY AND Comment: GENOMIC MEDICINE Specimen Information Specimen Source: Urine Specimen Site: Clean catch Specimen Urine Performing Organization Address [facility]/Zipcode Phone Number [facility] DEPARTMENT OF [address] [place] [address] PATHOLOGY AND GENOMIC MEDICINE * Urine culture (02/16/2018 7:09 PM CDT) Urine culture isolate Mixed Gram positive radhika [facility] DEPARTMENT OF <10-1 cfu/ml PATHOLOGY AND (A) GENOMIC MEDICINE Comment: Specimen Information Specimen Source: Urine Specimen Site: Clean catch Specimen Urine Performing Organization Address [facility] Phone Number [facility] DEPARTMENT OF [address] [place] [address] PATHOLOGY AND GENOMIC MEDICINE after 01/11/2018 Insurance Payer Benefit Subscriber ID Type Phone Address Plan / Group AETNA AETNA PPO xxxxxxxxxx PPO OPEN CHOICE (Work) Advance Directives Patient has advance care planning documents on file. For more information, bee gamble contact: Terry Ayers [address] [place] [address]
[2019-01-12 19:25] LABS: BASOPHILS # (AUTO) 0.1 (0.0-0.1); BASOPHILS % 0.6 % (0.0-1.0); EOSINOPHILS # (AUTO) 0.3 (0.0-0.4); EOSINOPHILS % 3.7 % (0.0-6.0); HEMATOCRIT 36.7 % (34.2-44.1); HEMOGLOBIN 12.1 g/dL (12.0-16.0); LYMPHOCYTES # (AUTO) 3.1 (1.0-3.2); LYMPHOCYTES % 35.2 % (18.0-39.1); MEAN CORPUSCULAR HEMOGLOBIN 30.5 pg (28-32); MEAN CORPUSCULAR VOLUME 92.4 fL (81-99); MONOCYTES # (AUTO) 0.4 (0.2-0.8); MONOCYTES % 4.4 % (4.4-11.3); NEUTROPHILS # (AUTO) 4.8 (2.1-6.9); NEUTROPHILS % 55.9 % (38.7-80.0); PLATELET COUNT 343 x10e3/uL (140-360); RED BLOOD COUNT 3.97 x10e6/uL (3.6-5.1)
[2019-01-12 19:47] LABS: ALANINE AMINOTRANSFERASE 69 IU/L (0-55); ALBUMIN 4.1 g/dL (3.5-5.0); ALBUMIN/GLOBULIN RATIO 0.9 (0.8-2.0); ALKALINE PHOSPHATASE 98 IU/L (40-150); ANION GAP 17.6 mmol/L (8-16); BLOOD UREA NITROGEN 5 mg/dL (7-26); BUN/CREATININE RATIO 6 (6-25); CALCIUM 9.5 mg/dL (8.4-10.2); CARBON DIOXIDE 24 mmol/L (22-29); CHLORIDE 105 mmol/L (98-107); CREATININE, SERUM 0.85 mg/dL (0.57-1.11); EST GLOMERULAR FILTRATION RATE > 60 ML/MIN (60-); GLUCOSE 136 mg/dL (74-118); POTASSIUM 3.6 mmol/L (3.5-5.1); SODIUM 143 mmol/L (136-145)
[2019-01-12 20:39] LABS: BILIRUBIN,URINE 2+ (NEGATIVE); CLARITY,URINE TURBID (CLEAR); COLOR,URINE YELLOW (YELLOW); KETONES,URINE NEGATIVE (NEGATIVE); LEUKOCYTE ESTERASE ,URINE NEGATIVE (NEGATIVE); NITRITE,URINE NEGATIVE (NEGATIVE); PROTEIN,URINE DIPSTICK 1+ (NEGATIVE); URINE UROBILINOGEN 0.2 mg/dL (0.2 - 1)
[2019-01-12 20:40] LABS: AMORPHOUS SEDIMENT,URINE MANY (FEW); BACTERIA,URINE MODERATE /HPF; EPITHELIAL CELLS,URINE RARE /LPF; RBC,URINE 0-5 /HPF (0-5); WBC,URINE (MAN) 0-5 /HPF (0-5)
[2019-01-12 20:41] LABS: PREGNANCY TEST, URINE NEGATIVE (NEGATIVE)
[2019-01-12] MEDS ORDERED: MORPHINE SULFATE 2 MG/ML SYR 1ML IV PRN (20:45)
[2019-01-12] MEDS: MORPHINE SULFATE INJ 4 MG/ML INJ 1ML IV PRN (21:00)
[2019-01-12] MEDS: ONDANSETRON HCL INJ 2MG/ML 2ML 2 MG/ML VIAL IV PRN (21:00)
[2019-01-12] MEDS: SODIUM CHLORIDE 0.9% 1000ML 1,000 ML IV SCH (21:00)
--- OUTSIDE RECORDS SUMMARY | 2019-01-12 21:59 | XMS REPORT | Clinical Summary ---
Author Author [facility] Organization [facility] Address Unknown Phone Unavailable Care Team Providers Care Safe Expert Name Role Phone Dileep Carballo MD PCP [...] Taken Vital Sign Reading 12/05/2018 8:56 PM TRAINING AND DEVELOPMENT OFFICER Blood Pressure 150/89 12/05/2018 8:56 PM TRAINING AND DEVELOPMENT OFFICER Pulse 79 12/05/2018 8:56 PM TRAINING AND DEVELOPMENT OFFICER Temperature 36.5 C (97.7 F) 12/05/2018 8:56 PM TRAINING AND DEVELOPMENT OFFICER Respiratory Rate 16 12/05/2018 8:56 PM TRAINING AND DEVELOPMENT OFFICER Oxygen Saturation 98% - Inhaled Oxygen - Concentration 12/05/2018 6:25 PM TRAINING AND DEVELOPMENT OFFICER Weight 83.5 kg (184 lb) 12/05/2018 6:25 PM TRAINING AND DEVELOPMENT OFFICER Height 157.5 cm (5' 2") 12/05/2018 6:25 PM TRAINING AND DEVELOPMENT OFFICER Body Mass Index 33.65 Plan of Treatment Health Maintenance Due Date Last Done Comments CERVICAL CANCER SCREENING 1995 INFLUENZA VACCINE 05/31/2018 Procedures Comments Procedure Name Priority Date/Time Associated Diagnosis CT ABDOMEN PELVIS WO STAT 12/05/2018 CONTRAST 7:17 PM TRAINING AND DEVELOPMENT OFFICER XR CHEST 1 VW PORTABLE STAT 12/05/2018 7:10 PM TRAINING AND DEVELOPMENT OFFICER HCG QUALITATIVE, URINE STAT 12/05/2018 SCREEN 7:00 PM TRAINING AND DEVELOPMENT OFFICER URINALYSIS SCREEN AND STAT 12/05/2018 MICROSCOPY, WITH REFLEX 7:00 PM TRAINING AND DEVELOPMENT OFFICER TO CULTURE TROPONIN STAT 12/05/2018 6:50 PM TRAINING AND DEVELOPMENT OFFICER ESTIMATED GFR STAT 12/05/2018 6:50 PM TRAINING AND DEVELOPMENT OFFICER LIPASE LEVEL STAT 12/05/2018 6:50 PM TRAINING AND DEVELOPMENT OFFICER AMYLASE LEVEL STAT 12/05/2018 6:50 PM TRAINING AND DEVELOPMENT OFFICER COMPREHENSIVE METABOLIC STAT 12/05/2018 PANEL 6:50 PM TRAINING AND DEVELOPMENT OFFICER HC COMPLETE BLD COUNT STAT 12/05/2018 W/AUTO DIFF 6:50 PM TRAINING AND DEVELOPMENT OFFICER ECG ED PRELIMINARY Routine 12/05/2018 INTERPRETATION 6:28 PM TRAINING AND DEVELOPMENT OFFICER ECG 12-LEAD Routine 12/05/2018 6:21 PM TRAINING AND DEVELOPMENT OFFICER ECG ED PRELIMINARY Routine 11/28/2018 INTERPRETATION 9:33 PM TRAINING AND DEVELOPMENT OFFICER ECG 12-LEAD STAT 11/28/2018 8:58 PM TRAINING AND DEVELOPMENT OFFICER ESTIMATED GFR STAT 11/28/2018 7:52 PM TRAINING AND DEVELOPMENT OFFICER TROPONIN STAT 11/28/2018 7:52 PM TRAINING AND DEVELOPMENT OFFICER CREATINE KINASE, TOTAL STAT 11/28/2018 (CPK) 7:52 PM TRAINING AND DEVELOPMENT OFFICER LIPASE LEVEL STAT 11/28/2018 7:52 PM TRAINING AND DEVELOPMENT OFFICER COMPREHENSIVE METABOLIC STAT 11/28/2018 PANEL 7:52 PM TRAINING AND DEVELOPMENT OFFICER PARTIAL THROMBOPLASTIN STAT 11/28/2018 TIME (PTT) 7:52 PM TRAINING AND DEVELOPMENT OFFICER PROTHROMBIN TIME WITH INR STAT 11/28/2018 7:52 PM TRAINING AND DEVELOPMENT OFFICER HC COMPLETE BLD COUNT STAT 11/28/2018 W/AUTO DIFF 7:52 PM TRAINING AND DEVELOPMENT OFFICER URINALYSIS SCREEN AND STAT 11/28/2018 MICROSCOPY, WITH REFLEX 7:45 PM TRAINING AND DEVELOPMENT OFFICER TO CULTURE CT ABDOMEN PELVIS WO STAT 11/28/2018 CONTRAST 7:35 PM TRAINING AND DEVELOPMENT OFFICER XR CHEST 2 VW STAT 11/28/2018 7:19 PM TRAINING AND DEVELOPMENT OFFICER ZZESTIMATED GFR STAT 02/16/2018 9:38 PM CDT [...] Abdomen Pelvis Wo Contrast (12/05/2018 7:17 PM TRAINING AND DEVELOPMENT OFFICER) Only the most recent of 2 results [...] IMPRESSION: No acute abdominal or pelvic pathology. [facility]-[id number] Procedure Note [facility], Radiology Results Incoming - 12/05/2018 7:25 PM TRAINING AND DEVELOPMENT OFFICER EXAMINATION: CT ABDOMEN PELVIS WO CONTRAST CLINICAL [...] IMPRESSION: No acute abdominal or pelvic pathology. [id number] Performing Organization Address [facility] Phone Number [facility] [address] [place] [address] * XR Chest 1 Vw Portable (12/05/2018 7:10 PM TRAINING AND DEVELOPMENT OFFICER) Narrative Performed At EXAMINATION:[facility]ST 1 [facility]:Shortness of breath TECHNIQUE:XR CHEST 1 VW PORTABLE COMPARISON:Chest radiograph dated 11/28/2018 FINDINGS: Lines/tubes:None. Heart and mediastinum:Unremarkable Lungs:There is minimal atelectasis/scarring at the lung bases.There is no focal consolidation. There is no evidence of pulmonary edema. Pleura:There is no pleural effusion. There is no pneumothorax. Bones and Soft Tissues:Unremarkable. IMPRESSION: No acute cardiopulmonary abnormality. [facility]-[id number] Procedure Note Hm Interface, Radiology Results Incoming - 12/05/2018 7:21 PM TRAINING AND DEVELOPMENT OFFICER EXAMINATION: XR CHEST 1 VW PORTABLE CLINICAL [...] Tissues: Unremarkable. IMPRESSION: No acute cardiopulmonary abnormality. [facility]-[id number] Performing Organization Address [facility] Phone Number [facility] [address] [place] [address] * Urinalysis screen and microscopy, with reflex to culture (12/05/2018 7:00 PM TRAINING AND DEVELOPMENT OFFICER) Only the most recent of 3 results within the time period is included. Specimen site Clean catch [facility] Color, UA Straw [facility] Appearance, UA Clear [facility] Specific gravity, UA 1.008 1.001 - 1.035 [facility] pH, UA 5.0 5.0 - 8.5 [facility] Protein, UA Negative Negative [facility] Glucose, UA Negative Negative [facility] Ketones, UA Negative Negative [facility] Bilirubin, UA Negative Negative [facility] Blood, UA Negative Negative [facility] Nitrite, UA Negative Negative [facility] Urobilinogen, UA Negative <2.0 [facility] Leukocyte esterase, UA Negative Negative [facility] Epithelial cells, UA Few /HPF [facility] Round epithelial cells, Few 0 - 1 /HPF [facility] WBC, UA 0-5 0 - 4 /HPF [facility] RBC, UA 0-5 0 - 5 /HPF [facility] Bacteria, UA Trace None seen [facility] Yeast, UA None seen [facility] Yeast with pseudohyphae, None seen [facility] Specimen Urine Performing Organization Address [facility] Phone Number [address] [place] [address] PATHOLOGY AND GENOMIC MEDICINE [address] * hCG qualitative, urine screen (12/05/2018 7:00 PM TRAINING AND DEVELOPMENT OFFICER) hCG qualitative, urine Negative Negative [facility] Comment: [facility] The manufacturers stated sensitivity of HcG test for serum is >/=10 mIU/ml and urine is >/=20mIU/ml. Specimen Urine Performing Organization Address [facility] Phone Number [address] [place] [address] PATHOLOGY AND GENOMIC MEDICINE [address] * Estimated GFR (12/05/2018 6:50 PM TRAINING AND DEVELOPMENT OFFICER) Only the most recent of 2 results within the time period is included. Estimated GFR >=90 mL/min/1.73 m2 [facility] Comment: [facility] CatergoryUnitsInte rpretation G1 >=90 Normal or high G2 60-89Mildly decreased [id number] Mildly to moderately decreased [id number] Moderately to severely decreased G4 15-29Severely decreased G5 <15Kidney failure The eGFR was calculated using the Chronic Kidney Disease Epidemiology Collaboration (CKD-EPI) equation. Interpretation is based on recommendations of the National Kidney Foundation-Kidney Disease Outcomes Quality Initiative (NKF-KDOQI) published in 2014. Specimen Plasma specimen Performing Organization Address City/[facility] Phone Number [address] [place] [address] PATHOLOGY AND GENOMIC MEDICINE [address] * Troponin (12/05/2018 6:50 PM TRAINING AND DEVELOPMENT OFFICER) Only the most recent of 2 results within the time period is included. Troponin <0.300 0.000 - 0.300 ng/mL [facility] Comment: [facility] 0.30 - 1.49 ng/mlMay indicate increased risk of acute coronary syndrome. >=1.5 ng/ml Consistent with acute myocardial infarction. The diagnostic value of a single normal or non-diagnostic result is questionable.Serial samples at 2-6 hour intervals are required to rule out acute myocardial injury. Specimen Plasma specimen Performing Organization Address [facility] Phone Number [address] [place] [address] PATHOLOGY AND GENOMIC MEDICINE [address] * CBC with platelet and differential (12/05/2018 6:50 PM TRAINING AND DEVELOPMENT OFFICER) Only the most recent of 3 results within the time period is included. WBC 10.70 4.50 - 11.00 k/uL [facility] RBC 4.19 (L) 4.20 - 5.50 m/uL [facility] HGB 12.9 12.0 - 16.0 g/dL [facility] HCT 39.0 37.0 - 47.0 % [facility] MCV 93.1 82.0 - 100.0 fL [facility] MCH 30.8 27.0 - 34.0 pg [facility] MCHC 33.1 31.0 - 37.0 g/dL [facility] RDW - SD 43.0 37.0 - 55.0 fL [facility] MPV 12.0 8.8 - 13.2 fL [facility] Platelet count 166 150 - 400 k/uL [facility] Nucleated RBC 0.00 /100 WBC [facility] Neutrophils 47.0 39.0 - 69.0 % [facility] Lymphocytes 46.9 (H) 25.0 - 45.0 % [facility] Monocytes 4.4 0.0 - 10.0 % [facility] Eosinophils 0.9 0.0 - 5.0 % [facility] Basophils 0.4 0.0 - 1.0 % [facility] Specimen Blood Performing Organization Address [facility] Phone Number [address] [place] [address] PATHOLOGY AND GENOMIC MEDICINE [address] * Lipase level (12/05/2018 6:50 PM TRAINING AND DEVELOPMENT OFFICER) Only the most recent of 2 results within the time period is included. Lipase 41 13 - 60 U/L [facility] Specimen Plasma specimen Performing Organization Address [facility] Phone Number [address] [place] [address] PATHOLOGY AND GENOMIC MEDICINE [address] * Amylase level (12/05/2018 6:50 PM TRAINING AND DEVELOPMENT OFFICER) Amylase 52 13 - 73 U/L [facility] Specimen Plasma specimen Performing Organization Address [facility] Phone Number [address] [place] [address] PATHOLOGY AND GENOMIC MEDICINE [address] * Comprehensive metabolic panel (12/05/2018 6:50 PM TRAINING AND DEVELOPMENT OFFICER) Only the most recent of 3 results within the time period is included. Sodium 139 135 - 148 mEq/L [facility] Potassium 3.8 3.5 - 5.0 mEq/L [facility] Chloride 98 98 - 112 mEq/L [facility] CO2 23 (L) 24 - 31 mEq/L [facility] Anion gap 18@ANIO (H) 7 - 15 mEq/L [facility] BUN 9 6 - 20 mg/dL [facility] Creatinine 0.60 0.50 - 0.90 mg/dL [facility] Glucose 232 (H) 65 - 99 mg/dL [facility] Calcium 10.0 8.3 - 10.2 mg/dL [facility] Protein 8.0 6.3 - 8.3 g/dL [facility] Comment: [facility] 4.6-7.0 g/dL 1 week 4.4-7.6 g/dL 7 months-1year 5.1-7.3 g/dL 1-2 years5.6-7 .5 g/dL >3 years6.0-8 .0 g/dL 18-150 6.3-8.3 g/dL Albumin 4.8 3.5 - 5.0 g/dL [facility] A/G ratio 1.5 0.7 - 3.8 [facility] Alkaline phosphatase 97 35 - 104 U/L [facility] AST 48 (H) 10 - 35 U/L [facility] ALT 61 (H) 5 - 50 U/L [facility] Total bilirubin 0.4 0.0 - 1.2 mg/dL [facility] Specimen Plasma specimen Performing Organization Address City/State/Zipcode Phone Number [facility] [place] [id number] [place] [address] [place] [address] PATHOLOGY AND GENOMIC MEDICINE [facility] [id number] [place] [address] * ECG ED Preliminary Interpretation - Not an Order (12/05/2018 6:28 PM TRAINING AND DEVELOPMENT OFFICER) Only the most recent of 2 results within the time period is included. Narrative Performed At Juan Yee MD 12/05/20189:03 PM ECG ED Preliminary Interpretation - Not an Order Performed by: Juan Yee MD Authorized by: Juan Yee MD ECG reviewed by ED Physician in the absence of a bioinformatics programmer: yes Interpretation: Interpretation: normal Rate: ECG rate:83 ECG rate assessment: normal Rhythm: Rhythm: sinus rhythm Ectopy: Ectopy: none QRS: QRS axis:Normal QRS intervals:Normal Conduction: Conduction: normal ST segments: ST segments:Normal T waves: T waves: normal * ECG 12 lead (12/05/2018 6:21 PM TRAINING AND DEVELOPMENT OFFICER) Only the most recent of 2 results within the time period is included. Ventricular rate 83 [facility] Atrial rate 83 [facility] VA interval 174 [facility] QRSD interval 72 [facility] QT interval 356 [facility] QTC interval 418 [facility] P axis 1 18 [facility] QRS axis 1 26 [facility] T wave axis 41 [facility] EKG impression Normal sinus rhythm-Normal [facility] MUSE ECG-In automated comparison with ECG of 28-NOV-2018 20:58,-No significant change was found- Narrative Performed At Performing Organization Address City/[facility] Phone Number [facility] [address] [place] [address] * Partial thromboplastin time, activated (11/28/2018 7:52 PM TRAINING AND DEVELOPMENT OFFICER) PTT 32.9 23.0 - 36.0 sec [facility] Comment: [facility] PTT therapeutic range for unfractionated heparin is 61.0-112.0 seconds which corresponds to Anti-Xa 0.3-0.7 U/ml. Specimen Blood Performing Organization Address City/[facility]/Zipcode [place] [address] [place] [address] PATHOLOGY AND GENOMIC MEDICINE [facility] [address] [place] [address] [facility] * Prothrombin time with INR (11/28/2018 7:52 PM TRAINING AND DEVELOPMENT OFFICER) Prothrombin time 12.3 11.5 - 14.5 sec [facility] INR 0.9 [facility] Comment: [facility] The International Normalized Ratio (INR) is a therapeutic monitoring tool for patients who are stable on oral anticoagulant therapy. An INR of 2.0-3.0 is suggested for deep vein thrombosis/pulmonary embolism. Specimen Blood Performing Organization Address [facility]/Zipcode Phone Number [address] [place] [address] PATHOLOGY AND GENOMIC MEDICINE [address] * Creatine kinase, total (CPK) (11/28/2018 7:52 PM TRAINING AND DEVELOPMENT OFFICER) Creatine kinase 161 26 - 192 U/L [facility] Specimen Plasma specimen Performing Organization Address [facility] Phone Number [address] [place] [address] PATHOLOGY AND GENOMIC MEDICINE [address] * XR Chest 2 Vw (11/28/2018 7:19 PM TRAINING AND DEVELOPMENT OFFICER) Narrative Performed At [facility] CHEST[facility] Clinical history:Epigastric pain Technique: PA and lateral views chest. Comparison: None DISCUSSION: The lungs are clear and symmetrically inflated. No pleural effusions. Cardiac size and mediastinal contour are normal. Pulmonary vasculature is normal.The skeleton is grossly intact. IMPRESSION: No acute abnormality. Procedure Note Interface, Radiology Results Incoming - 11/28/2018 7:27 PM TRAINING AND DEVELOPMENT OFFICER TWO VIEW CHEST, 11/28/2018 Clinical history: Epigastric pain Technique: PA and lateral views chest. Comparison: None DISCUSSION: The lungs are clear and symmetrically inflated. No pleural effusions. Cardiac size and mediastinal contour are normal. Pulmonary vasculature is normal. The skeleton is grossly intact. IMPRESSION: No acute abnormality. Performing Organization Address City/[facility]/Zipcode Phone Number [facility] [address] [place] [address] * Estimated GFR (02/16/2018 9:38 PM CDT) GFR Non Af Amer >90 mL/min/1.73 m2 [facility] DEPARTMENT OF PATHOLOGY AND GENOMIC MEDICINE GFR Af Amer >90 mL/min/1.73 m2 [facility] DEPARTMENT OF Comment: PATHOLOGY AND Chronic [...] Address City/State/Zipcode [place] [address] [place] [address] PATHOLOGY AND GENOMIC MEDICINE * CT Renal [...] in the abdomen or pelvis. [facility]-[id number] Procedure Note Interface, Radiology Results [facility] - 02/16/2018 9:43 PM CDT Examination: [...] in the abdomen or pelvis. [facility]-[id number] Performing Organization Address City/[facility]/Zipcode Phone Number [facility] [address] [place] [address] * Gram stain (02/16/2018 7:09 PM CDT) Gram stain result Few WBC's [facility] DEPARTMENT OF Many Gram positive rods PATHOLOGY AND Comment: GENOMIC MEDICINE Specimen Information Specimen Source: Urine Specimen Site: Clean catch Specimen Urine Performing Organization Address [facility]/Zipcode Phone Number [facility] DEPARTMENT OF [address] [place] [address] PATHOLOGY AND GENOMIC MEDICINE * Urine culture (02/16/2018 7:09 PM CDT) Urine culture isolate Mixed Gram positive radhika [facility] DEPARTMENT OF <10-1 cfu/ml PATHOLOGY AND (A) GENOMIC MEDICINE Comment: Specimen Information Specimen Source: Urine Specimen Site: Clean catch Specimen Urine Performing Organization Address [facility] Phone Number [facility] DEPARTMENT OF [address] [place] [address] PATHOLOGY AND GENOMIC MEDICINE after 01/11/2018 Insurance Payer Benefit Subscriber ID Type Phone Address Plan / Group AETNA AETNA PPO xxxxxxxxxx PPO OPEN CHOICE (Work) Advance Directives Patient has advance care planning documents on file. For more information, bee gamble contact: Terry Ayers [address] [place] [address]
--- NOTE | 2019-01-12 23:55 | NUR ---
Patient arrived to the unit to Rm 285 (from ED) via wheelchair with diagnosis of diverticulitis. Patient alert and oriented x3.Pt to be started on IVF (NS at 125ml/hr) per MD order. Patient states she could not keep anything down and easily get nauseous and vomits. Pt c/o abdominal pain at this time. Dr. Carballo (Dr. Colton zavala) to be paged since not due yet for pain and nausea med. Call marti within reach.
[2019-01-13] VITALS (8 sets, daily range): BP systolic 135–168; BP diastolic 78–98
--- NOTE | 2019-01-13 00:10 | NUR ---
Nurse (Keagan) spoke with Dr. Segura over the phone. MD aware of pt condition and instructed ok to medicate pt with 1mg IV Morphine at this time or pt can wait for next dose at 0100 and ok to give pt Zofran or wait for next dose at 0100.
--- NOTE | 2019-01-13 00:12 | NUR ---
Patient decided she would wait for close to 0100 for another dose of Morphine and Zofran.
[2019-01-13] MEDS: SODIUM CHLORIDE 0.9% 1000ML 1,000 ML IV SCH ×2 (00:15→10:38)
[2019-01-13] MEDS: MORPHINE SULFATE INJ 4 MG/ML INJ 1ML IV PRN ×6 (00:55→23:00)
[2019-01-13] MEDS: ONDANSETRON HCL INJ 2MG/ML 2ML 2 MG/ML VIAL IV PRN ×6 (00:55→23:00)
[2019-01-13 05:49] LABS: BASOPHILS % 0.6 % (0.0-1.0); EOSINOPHILS # (AUTO) 0.3 (0.0-0.4); EOSINOPHILS % 4.6 % (0.0-6.0); HEMATOCRIT 29.6 % (34.2-44.1); HEMOGLOBIN 9.6 g/dL (12.0-16.0); LYMPHOCYTES # (AUTO) 3.6 (1.0-3.2); MEAN CORPUSCULAR HEMOGLOBIN 30.4 pg (28-32); MEAN CORPUSCULAR HGB CONC 32.4 g/dL (31-35); MEAN CORPUSCULAR VOLUME 93.7 fL (81-99); MONOCYTES # (AUTO) 0.4 (0.2-0.8); MONOCYTES % 5.7 % (4.4-11.3); NEUTROPHILS # (AUTO) 2.8 (2.1-6.9); PLATELET COUNT 262 x10e3/uL (140-360); RED BLOOD COUNT 3.16 x10e6/uL (3.6-5.1)
[2019-01-13 06:13] LABS: ALANINE AMINOTRANSFERASE 49 IU/L (0-55); ALBUMIN 3.1 g/dL (3.5-5.0); ALKALINE PHOSPHATASE 75 IU/L (40-150); BLOOD UREA NITROGEN < 5 mg/dL (7-26); CARBON DIOXIDE 24 mmol/L (22-29); CHLORIDE 110 mmol/L (98-107); CREATININE, SERUM 0.74 mg/dL (0.57-1.11); EST GLOMERULAR FILTRATION RATE > 60 ML/MIN (60-); GLUCOSE 92 mg/dL (74-118); SODIUM 144 mmol/L (136-145)
[2019-01-13 06:14] LABS: BUN/CREATININE RATIO 7 (6-25)
--- NOTE | 2019-01-13 06:37 | NUR ---
Spoke with Dr. Yandel Waddell to notify of new consult. Dr. Muna Waddell ordered to keep pt NPO at this time.
[2019-01-13] MEDS: LEVOFLOXACIN 500MG/D5W 100ML 100 ML IV SCH (08:33)
--- NOTE | 2019-01-13 08:40 | NUR ---
Rounds with Dr. Patricio Waddell. Orders rec'd.
--- NOTE | 2019-01-13 10:07 | Diagnostic Imaging Report ---
EXAM: Abdomen and chest, 4 radiographs INDICATION: Abdominal pain. ^r/o diverticulitis COMPARISON: Chest x-ray dated 12/31/[address] dated 12/23/2018 FINDINGS: Nonobstructive bowel gas pattern. No signs of pneumoperitoneum. No calcification overlying renal shadows. No acute osseous abnormality. Clear lungs. Right upper quadrant and left pelvic surgical clips. IMPRESSION: 1. Nonobstructive bowel gas pattern. 2. Clear lungs. Signed by: Dr. Jed Boyle MD on 01/13/2019 8:15 AM
[2019-01-13] MEDS ORDERED: POTASSIUM CHLORIDE 20MEQ/100ML 200 ML IV ONE (11:30)
[2019-01-13] MEDS ORDERED: ACETAMINOPHEN 325 MG SUPP PR PRN (14:00)
[2019-01-13] MEDS ORDERED: D5.45%NS/KCL 20MEQ 1,000 ML IV ONE (14:00)
[2019-01-13] MEDS ORDERED: DEXTROSE 50% SYRINGE 50 ML IV PRN (14:00)
[2019-01-13] MEDS ORDERED: HYDRALAZINE HCL 20 MG/ML VIAL IV PRN (14:00)
--- NOTE | 2019-01-13 14:45 | NUR ---
Nutrition Intervention Note RD Recommendation(s) for Physician: Initiate a Po diet when medically feasible Plan of Care: RD following, monitoring for tolerance and adequacy Nutrition reason for involvement: Nutrition Risk Trigger - MST RD Assessment Initial encounter with pt. Pt states that she has a usual BW of 193lbs and her current wt is 157.25 pounds. Pt with nausea, vomiting and diarrhea currently. Pt with a Hx of Exploratory laparotomy with colectomy. Principal Problems/Diagnoses: Diverticulitis PMH:Diabetes mellitus, hypertension, Crohn disease. IVF: NS at 125ml/hr GI: Nausea, vomiting and diarrhea Skin: abdominal surgical incision Labs: 01/13/2019 lab results reviewed Meds: (01/13/2019) MAR reviewed Malnutrition Evaluation (01/13/2019) The patient meets criteria for MODERATE protein-calorie malnutrition. Energy intake: <75% of estimated energy requirements for >1 month Weight loss: > 5% in 1 month (Chronic) Diet Education Needs Assessment: Diet education not indicated Ht:62 Wt:157.25lbs BMI:28.8kg/m2 IBW:110lbs Estimated Nutritional Needs: 4684-2648 kcals at 25-30 kcals/kg/bw 71-107g of protein at 1-1.5g/kg/bw Nutrition Prescription (Diet Order): NPO Food Allergies: Diet Adequacy: (Meeting calorie needs, Meeting protein needs, Meeting fluid needs, Not meeting calorie needs, Not meeting protein needs) Tolerance: (Tolerating PO, Not Tolerating PO, Tolerating TF, Not Tolerating TF, Tolerating TPN/PPN, Not Tolerating TPN/PPN) Nutrition Care Level: Moderate Nutrition Diagnosis:Malnutrition related to chronic illness as evidenced by involuntary wt loss Goal:Patient will meet 75-100% of estimated needs by follow up Progress: Not Progressing Interventions: -General healthful diet, Rate, Route, IVF Monitoring/Evaluation: Total energy intake, Total protein intake, IVF, Weight change Sloan Bradford RD, LD, CNSC
[2019-01-13] MEDS: METRONIDAZOLE 500MG/NS 100ML 100 ML IV SCH ×2 (14:51→21:26)
[2019-01-13] MEDS: INSULIN LISPRO 100 UNIT/1 ML 3ML VIAL SQ SCH ×2 (16:30→21:00)
--- NOTE | 2019-01-13 16:30 | NUR ---
CASE MANAGEMENT INITIAL ASSESSMENT Complaint Investigations Officer to bedside to discuss plan of care with patient/family. CM/SW role and care transitions discussed. Anticipated discharge plan discussed along with duration of care. CM/SW discussed patients right to make decisions in care. CM/SW work hours given. Patient lives: WITH PARTNER Admit/Transfer: ER Hospital/ER visits since last admit:1 POA/Emergency contact: MARIAH SALMERON [phone] Current/Previous Home Health: NONE PCP/Follow-up Care: Savannah DIAMOND Current/Previous DME: GLUCOMETER Medications (referring to index hospitalization or the first time you were in the hospital) a. Were changes made in your medications when you were in the hospital on [date of index hospitalization]? Yes Note: If no or not sure, please skip to question d b. Did you understand the changes? YES c. Were you able to obtain your new medications right away? Yes d. Were you able to take your medications like the doctor wanted you to? Yes e. Did the hospital give you an accurate, easy to understand list of medications when you left? 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 Areas of Concerns: NONE Referral Needs: DIETARY CONSULT Education Needs: DIET RESTRICTIONS AND MEDICATIONS IMM/HINES given and signed (if applicable): N/A Goal for discharge:DC HOME AND RETURN TO WORK DAVID CM/SW left business card at the bedside with contact information. Name and number was also written on the patients whiteboard. Patient verbalized understanding of discussion. CM will follow-up with ongoing discharge and transition of care needs.
[2019-01-13] MEDS: FAMOTIDINE 20 MG/2 ML VIAL IV SCH (17:15)
--- NOTE | 2019-01-13 19:00 | NUR ---
Patient visited in room during nursing rounds. Patient alert and oriented x3. On IVF (D51/2NS with 20meqKCL at 125ml/hr). IV antibiotics as scheduled. NPO diet at this time. Pt ambulatory in room prn. Call marti within reach. Will monitor pt closely.
[2019-01-13] MEDS: METOPROLOL TARTRATE INJ 1 MG/ML VIAL IV SCH (21:26)
--- NOTE | 2019-01-13 21:37 | History and Physical ---
PRESENTING COMPLAINT: Intractable abdominal pain, got worsened for 2 days with nausea and vomiting. HISTORY OF PRESENT ILLNESS: A 43-year-old female was admitted from ER. The patient was discharged from this hospital about 10 days ago after right hemicolectomy and ileal resection for diverticular disease with ischemic colitis as documented in the biopsy report. The patient had told that she was reasonably well until 3-4 days ago. She went to follow up with Dr. Yandel Waddell 4 days ago at his office. At that time, she did not have any pain, but her pain got worsened for the last 3 days, got intolerable yesterday. At that time, she decided to come to the ER. The patient told that pain was mostly localized in the lower abdomen with nausea and vomiting. She denied any blood in vomitus. She also had loose stool along with this abdominal pain. Stool did not contain any blood. She also denies any passing of black stool or dark stool, color was yellow as per the patient's statement. The patient denied fever, chest pain, shortness of breath, or dizziness. She had history of blood in stool prior to her last hospitalization on December 18, 2018, as per electronic medical record. The patient's pain is controlled now. She is n.p.o. since last night. REVIEW OF SYSTEMS: CONSTITUTIONAL: No fevers, chills, or rigors. ENT: No nasal congestion. No sore throat. No earache. CARDIOVASCULAR: No chest pain, shortness of breath, or palpitation. PULMONARY: No cough. No hemoptysis. GI: Lower abdominal pain with nausea and vomiting as per HPI. Loose BM. No episode of bloody stool or black stool at this time. : No dysuria. No hematuria. The patient is status post hysterectomy. MUSCULOSKELETAL , SKIN AND LYMPHORETICULAR : No joint pain. No joint swelling. No skin rash. No swollen glands. NEUROLOGIC: No loss of consciousness, seizures, or headache. HISTORY PAST MEDICAL ILLNESS: 1. Diverticulosis. 2. Crohn disease, questionable. 3. Ischemic colitis. 4. Hypertension. 5. Type 2 diabetes mellitus. 6. No history of CAD, stroke, or cancer. HISTORY OF PAST SURGERIES: 1. Hysterectomy for endometriosis. 2. Right ileocolectomy in recent past at this hospital by Dr. Yandel Waddell. 3. Breast augmentation surgery. 4. Knee surgery. 5. Tonsillectomy. 6. Cholecystectomy. The patient also had EGD during last hospitalization. 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 No miscarriage. Status post hysterectomy for endometriosis in 2017. ALLERGIES: TO ASPIRIN AND IODINE, EXACT REACTION NOT KNOWN. HOME MEDICATIONS: As per med reconciliation sheet. SOCIAL HISTORY: The patient lives at home with her family. HABITS: Denies smoking, drinking, or substance abuse history. FAMILY HISTORY: Positive for diabetes, hypertension, and CAD as per the patient's statement. PHYSICAL EXAMINATION: VITAL SIGNS: Today, BP 143/88, pulse 96, temperature 97.5, T-max 99.3 at presentation, respirations 18, SpO2 of 93% at room air. GENERAL: Alert. The patient is lying in bed without any acute distress now. Pain controlled. HEENT: NC/AT. Pupils equally reacting. No pallor. No icterus. Oral mucosa dry. NECK: No JVD. No carotid bruit. No lymphadenopathy. No thyromegaly. HEART: S1 and S2, regular. No murmur. LUNGS: Clear to auscultation. ABDOMEN: Right paramedian surgical scar fully healed up. No sign of infection. Soft. No distention. Diffuse tenderness of her lower abdomen more on the left side. No palpable mass. Deep palpation was not attempted due to the patient's pain. Bowel sounds active in all quadrants. EXTREMITIES: No edema, cyanosis, or clubbing. NEUROLOGICAL: Motor grossly equal on both sides. LABORATORY DATA: CBC, WBC 8.66, hemoglobin 12.1, hematocrit 36 and came down to 29 this morning, MCV 92, RDW of 13, platelets 343, neutrophils 55, lymphocytes 35. Chemistry panel, sodium 143, potassium 3.6 came down to 3.0 this morning, chloride 105, CO2 of 24, anion gap 14, BUN 5, creatinine 0.8, glucose 136. Calcium 9.5, total bilirubin 0.5, AST 61, ALT 69, alkaline phosphatase 98, total protein 8.7, albumin 4.1, globulin 4.6. Urinalysis, protein 1+, negative for glucose, ketone, leukocyte esterase. Urine bilirubin 2+, rbc 0 to 5, wbc 0 to 5. Urine test negative. RADIOLOGICAL DATA: abdomen series x-ray, nonobstructive bowel gas pattern, clear lungs. CT abdomen and pelvis without IV contrast done at outside radiology center on January 11, 2019, ascending colon diverticulitis, and cecal colitis without perforation or abscess. Recommended colonoscopy. Post surgical changes along laparotomy incision in abdominal wall. ASSESSMENT AND PLAN: 1. Intractable abdominal pain likely due to acute diverticulitis as evidence in the CT scan done outside. We would keep the patient n.p.o. I would continue the patient on empiric IV antibiotics for now , Levaquin and Flagyl. Dr. Waddell was consulted from ER, would follow his recommendation. 2. Ischemic colitis on biopsy with history of Crohn disease. The patient's ileum and cecum biopsy did not show any evidence of Crohn disease in this specimen sent from surgery. I would request Dr. Kwong for evaluation. , would follow his recommendation. 3. Anemia. The patient had drop of hemoglobin from 12 to 9.6 this morning. No evidence of active bleeding. We will check stool for occult blood. Keep the patient on PPI for now. The patient has also history of gastritis. She had an EGD during last hospitalization. 4. Hypokalemia. Replenished with potassium IV. 5. Hypertension. Keep the patient on IV metoprolol for now, hold p.o. medication. 6. Nutrition. Keep the patient on IV glucose with half-normal saline for now. Continue n.p.o. 7. Pain control. Continue the patient on narcotic IV p.r.n. for now. 8. Advance directive. The patient is full code. 9. Discharge plan would depend upon the patient's hospital course and recommendation by station installation supervisor and Neurosurgery. MD ENID Bacon/TONIE /[id number] TUYET
[2019-01-14] VITALS (7 sets, daily range): BP systolic 118–148; BP diastolic 80–99
[2019-01-14] MEDS: MORPHINE SULFATE INJ 4 MG/ML INJ 1ML IV PRN ×4 (03:00→16:25)
[2019-01-14] MEDS: ONDANSETRON HCL INJ 2MG/ML 2ML 2 MG/ML VIAL IV PRN ×4 (03:00→16:25)
--- NOTE | 2019-01-14 03:30 | NUR ---
Dr. Hardik Kwong came and visited pt in room. Dr. Kwong interviewed pt medical history and aware of pt condition.
[2019-01-14] MEDS ORDERED: PANTOPRAZOLE 40 MG 10ML VIAL IV STA (05:09)
[2019-01-14 05:36] LABS: BASOPHILS % 0.5 % (0.0-1.0); EOSINOPHILS # (AUTO) 0.3 (0.0-0.4); EOSINOPHILS % 4.4 % (0.0-6.0); HEMATOCRIT 30.1 % (34.2-44.1); HEMOGLOBIN 9.7 g/dL (12.0-16.0); LYMPHOCYTES # (AUTO) 2.9 (1.0-3.2); LYMPHOCYTES % 45.7 % (18.0-39.1); MEAN CORPUSCULAR HEMOGLOBIN 29.9 pg (28-32); MEAN CORPUSCULAR HGB CONC 32.2 g/dL (31-35); MEAN CORPUSCULAR VOLUME 92.9 fL (81-99); MONOCYTES # (AUTO) 0.4 (0.2-0.8); MONOCYTES % 5.8 % (4.4-11.3); NEUTROPHILS # (AUTO) 2.8 (2.1-6.9); NEUTROPHILS % 43.3 % (38.7-80.0); PLATELET COUNT 236 x10e3/uL (140-360); RED BLOOD COUNT 3.24 x10e6/uL (3.6-5.1); RED CELL DISTRIBUTION WIDTH 12.7 % (11.7-14.4)
[2019-01-14 05:46] LABS: INR 1.05; PROTHROMBIN TIME 14.2 seconds (11.9-14.5)
[2019-01-14] MEDS: METRONIDAZOLE 500MG/NS 100ML 100 ML IV SCH ×3 (05:47→22:15)
[2019-01-14 05:52] LABS: ANION GAP 12.3 mmol/L (8-16); BLOOD UREA NITROGEN < 5 mg/dL (7-26); CALCIUM 8.2 mg/dL (8.4-10.2); CARBON DIOXIDE 24 mmol/L (22-29); CHLORIDE 110 mmol/L (98-107); CREATININE, SERUM 0.77 mg/dL (0.57-1.11); EST GLOMERULAR FILTRATION RATE > 60 ML/MIN (60-); GLUCOSE 93 mg/dL (74-118); POTASSIUM 3.3 mmol/L (3.5-5.1); SODIUM 143 mmol/L (136-145)
[2019-01-14] MEDS: SUCRALFATE 1 GM TAB PO SCH ×4 (05:52→20:30)
[2019-01-14] MEDS: DICYCLOMINE HCL 20 MG TAB PO SCH ×3 (05:52→21:49)
[2019-01-14 06:01] LABS: BUN/CREATININE RATIO 6 (6-25)
[2019-01-14 06:32] LABS: % IRON SATURATION 13 % (15-50); ALANINE AMINOTRANSFERASE 49 IU/L (0-55); ALBUMIN 3.2 g/dL (3.5-5.0); ALBUMIN/GLOBULIN RATIO 1.1 (0.8-2.0); ALKALINE PHOSPHATASE 75 IU/L (40-150); ANION GAP 12.4 mmol/L (8-16); CALCIUM 8.1 mg/dL (8.4-10.2); CARBON DIOXIDE 24 mmol/L (22-29); CHLORIDE 110 mmol/L (98-107); CREATININE, SERUM 0.76 mg/dL (0.57-1.11); EST GLOMERULAR FILTRATION RATE > 60 ML/MIN (60-); GLUCOSE 94 mg/dL (74-118); IRON 40 ug/dL (50-170); MAGNESIUM 1.2 MG/DL (1.3-2.1); POTASSIUM 3.4 mmol/L (3.5-5.1); SODIUM 143 mmol/L (136-145); TOTAL IRON BINDING CAPACITY 312 ug/dL (261-478); TRANSFERRIN 223 mg/dL (180-382)
[2019-01-14 06:34] LABS: BLOOD UREA NITROGEN < 2 mg/dL (7-26); BUN/CREATININE RATIO 3 (6-25)
[2019-01-14 06:51] LABS: FERRITIN 72.59 ng/mL (4.63-204.00)
[2019-01-14] MEDS: INSULIN LISPRO 100 UNIT/1 ML 3ML VIAL SQ SCH ×4 (07:30→21:00)
[2019-01-14] MEDS: LEVOFLOXACIN 500MG/D5W 100ML 100 ML IV SCH (08:00)
[2019-01-14] MEDS: FAMOTIDINE 20 MG/2 ML VIAL IV SCH (08:11)
[2019-01-14] MEDS: METOPROLOL TARTRATE INJ 1 MG/ML VIAL IV SCH (08:11)
--- NOTE | 2019-01-14 13:00 | Progress Note ---
DATE: 01/14/2019 SUBJECTIVE: The patient is afebrile, her vital signs are stable. The patient complains of abdominal pain, which she has located and described mainly around the incision. She is passing flatus. Her abdomen is soft with a wound that has healed. She has had some tenderness around the incision. Her white count remains normal. The admission acute abdominal series was normal without obstructive pattern. Of note is the fact that this patient had a CAT scan performed at a [facility], [facility] in [place] and the report indicates the following (moderate/severity ascending colonic diverticulitis and cecal colitis without perforation or drainable abscess). Interestingly enough, this patient underwent recently exploratory laparotomy and ileocolic resection for what turned out to be ischemic colitis. I have reviewed the pathology report as well as the brief surgeon's note, where it clearly indicates on both reports that this patient had an ileocolectomy, that means that the cecum as well as part of the ascending colon were removed. These findings leads me to believe that what the Radiology is interpreting as cecal diverticulitis may very well be postoperative changes. ASSESSMENT: Status post ileocolic resection for ischemic colitis. At this point, there is no any acute surgical condition, there is no evidence of abscess or perforation, there is no evidence of obstruction, she is moving her bowels. The patient has complaints of pain, which were also very pronounced during her previous admission. At this point, we will defer the management to the primary care team and to the Gastroenterology team. MD KERI Barron/TONIE /[id number]
[2019-01-14] MEDS ORDERED: MAGNESIUM SULFATE 2GM/50ML 50 ML IV ONE (14:00)
[2019-01-14] MEDS ORDERED: POTASSIUM CHLORIDE 10MEQ EA PO ONE (14:00)
[2019-01-14] MEDS: METOPROLOL TARTRATE 50 MG TAB PO SCH (16:20)
[2019-01-14] MEDS: METFORMIN HCL 500 MG TAB PO SCH (16:20)
[2019-01-14] MEDS ORDERED: PANTOPRAZOLE SOD 40 MG TABEC PO SCH (17:00)
[2019-01-14] MEDS: PANTOPRAZOLE 40 MG 10ML VIAL IV SCH (17:24)
[2019-01-14] MEDS ORDERED: PANTOPRAZOLE 40 MG 10ML VIAL IV SCH (18:00)
--- NOTE | 2019-01-14 19:30 | NUR ---
Patient visited in room during nursing rounds. Patient alert and oriented x3. No distress noted. Pt with intermittent abd pain. Pt to be infused with Iron sucrose (IV) per Dr. Kwong's order. Pt aware. Refinery Operator Alkylation unable to successfully draw labs tonight (folate and Vit B12). Dr. Kwong to be asked if labs can be drawn in AM. Call marti within reach.
[2019-01-14] MEDS ORDERED: SODIUM CHLORIDE 0.9% 250ML 250 ML ONE (20:03)
--- NOTE | 2019-01-14 20:18 | NUR ---
Spoke with Dr. Hardik Kwong and informed if ok for labs (Folate and Vit B12) to be drawn tomorrow morning since these labs will be sent out tomorrow afternoon (as reported by labor trainer). Dr. Kwong consented ok for labs to be drawn tomorrow morning.
[2019-01-14] MEDS: IRON SUCROSE 100 MG in SODIUM CHLORIDE 0.9% 100 ML 100 ML IV SCH (20:40)
[2019-01-15] VITALS (8 sets, daily range): BP systolic 117–143; BP diastolic 74–84
[2019-01-15] MEDS: ONDANSETRON HCL INJ 2MG/ML 2ML 2 MG/ML VIAL IV PRN ×6 (00:34→20:58)
[2019-01-15] MEDS: MORPHINE SULFATE INJ 4 MG/ML INJ 1ML IV PRN ×6 (00:34→20:58)
[2019-01-15 06:16] LABS: BASOPHILS % 0.6 % (0.0-1.0); EOSINOPHILS # (AUTO) 0.3 (0.0-0.4); EOSINOPHILS % 4.6 % (0.0-6.0); HEMATOCRIT 30.1 % (34.2-44.1); HEMOGLOBIN 9.9 g/dL (12.0-16.0); LYMPHOCYTES # (AUTO) 2.9 (1.0-3.2); LYMPHOCYTES % 45.5 % (18.0-39.1); MEAN CORPUSCULAR HGB CONC 32.9 g/dL (31-35); MEAN CORPUSCULAR VOLUME 91.2 fL (81-99); MONOCYTES # (AUTO) 0.4 (0.2-0.8); NEUTROPHILS # (AUTO) 2.8 (2.1-6.9); NEUTROPHILS % 43.1 % (38.7-80.0); PLATELET COUNT 241 x10e3/uL (140-360); RED CELL DISTRIBUTION WIDTH 12.6 % (11.7-14.4)
[2019-01-15] MEDS: METRONIDAZOLE 500MG/NS 100ML 100 ML IV SCH ×4 (06:25→23:50)
[2019-01-15] MEDS: PANTOPRAZOLE 40 MG 10ML VIAL IV SCH ×2 (06:25→17:00)
[2019-01-15 06:52] LABS: ERYTHROCYTE SEDIMENTATION RATE 36 mm/hr (0-20)
--- NOTE | 2019-01-15 07:05 | NUR ---
RECEIVED REPORT FROM NIGHT NURSE, WALKING ROUNDS DONE. PATIENT IS IN STABLE CONDITION. NO ACUTE DISTRESS NOTED. PAIN AT A TOLERABLE LEVEL AT THIS TIME. CALL LIGHT WITHIN REACH. BED IN THE LOWEST POSITION.
[2019-01-15] MEDS: INSULIN LISPRO 100 UNIT/1 ML 3ML VIAL SQ SCH ×4 (07:30→20:18)
[2019-01-15 07:38] LABS: ALANINE AMINOTRANSFERASE 37 IU/L (0-55); ALBUMIN 3.1 g/dL (3.5-5.0); ALBUMIN/GLOBULIN RATIO 0.9 (0.8-2.0); ALKALINE PHOSPHATASE 69 IU/L (40-150); ANION GAP 11.1 mmol/L (8-16); CALCIUM 8.4 mg/dL (8.4-10.2); CARBON DIOXIDE 26 mmol/L (22-29); CHLORIDE 109 mmol/L (98-107); CREATININE, SERUM 0.78 mg/dL (0.57-1.11); EST GLOMERULAR FILTRATION RATE > 60 ML/MIN (60-); GLUCOSE 83 mg/dL (74-118); MAGNESIUM 1.3 MG/DL (1.3-2.1); POTASSIUM 3.1 mmol/L (3.5-5.1); SODIUM 143 mmol/L (136-145)
[2019-01-15 07:39] LABS: BLOOD UREA NITROGEN < 2 mg/dL (7-26); BUN/CREATININE RATIO 3 (6-25)
[2019-01-15] MEDS: AMLODIPINE BESYLATE 5 MG TAB PO SCH (08:53)
[2019-01-15] MEDS: DICYCLOMINE HCL 20 MG TAB PO SCH ×4 (08:53→20:57)
[2019-01-15] MEDS: METOPROLOL TARTRATE 50 MG TAB PO SCH ×2 (08:53→17:00)
[2019-01-15] MEDS: MULTIVITAMINS/MINERALS TAB PO SCH (08:53)
[2019-01-15] MEDS: METFORMIN HCL 500 MG TAB PO SCH ×2 (08:53→17:00)
[2019-01-15] MEDS: SUCRALFATE 1 GM TAB PO SCH ×4 (08:53→20:57)
[2019-01-15] MEDS: LEVOFLOXACIN 500MG/D5W 100ML 100 ML IV SCH (08:53)
[2019-01-15] MEDS: FLUCONAZOLE 100 MG TAB PO SCH (08:53)
[2019-01-15] MEDS: ENALAPRIL MALEATE 10 MG TAB PO SCH (08:54)
[2019-01-15] MEDS ORDERED: POTASSIUM CHLORIDE 10MEQ EA PO ONE (10:00)
[2019-01-15 13:52] LABS: FOLATE 10.1 ng/mL (7.0-15.4)
--- NOTE | 2019-01-15 18:51 | NUR ---
REPORT GIVEN TO ONCOMING NURSE, WALKING ROUNDS DONE. PATIENT IS WALKING AROUND THE ROOM. NO ACUTE DISTRESS NOTED. CALL LIGHT WITHIN REACH.
[2019-01-15] MEDS: IRON SUCROSE 100 MG in SODIUM CHLORIDE 0.9% 100 ML 100 ML IV SCH (19:03)
[2019-01-16] VITALS (9 sets, daily range): BP systolic 119–162; BP diastolic 80–100
[2019-01-16] MEDS: ONDANSETRON HCL INJ 2MG/ML 2ML 2 MG/ML VIAL IV PRN ×6 (01:01→23:42)
[2019-01-16] MEDS: MORPHINE SULFATE INJ 4 MG/ML INJ 1ML IV PRN ×6 (01:01→23:20)
[2019-01-16] MEDS ORDERED: CHOLESTYRAMINE 4 GM PACKET PO PRN (01:45)
[2019-01-16] MEDS: METRONIDAZOLE 500MG/NS 100ML 100 ML IV SCH ×2 (05:08→15:30)
[2019-01-16] MEDS: PANTOPRAZOLE 40 MG 10ML VIAL IV SCH ×2 (05:08→17:01)
[2019-01-16 05:58] LABS: BASOPHILS % 0.3 % (0.0-1.0); EOSINOPHILS # (AUTO) 0.2 (0.0-0.4); EOSINOPHILS % 3.5 % (0.0-6.0); HEMATOCRIT 33.2 % (34.2-44.1); HEMOGLOBIN 10.7 g/dL (12.0-16.0); LYMPHOCYTES # (AUTO) 2.9 (1.0-3.2); LYMPHOCYTES % 46.6 % (18.0-39.1); MEAN CORPUSCULAR HEMOGLOBIN 29.5 pg (28-32); MEAN CORPUSCULAR HGB CONC 32.2 g/dL (31-35); MEAN CORPUSCULAR VOLUME 91.5 fL (81-99); MONOCYTES # (AUTO) 0.4 (0.2-0.8); MONOCYTES % 5.9 % (4.4-11.3); NEUTROPHILS # (AUTO) 2.7 (2.1-6.9); NEUTROPHILS % 43.4 % (38.7-80.0); PLATELET COUNT 252 x10e3/uL (140-360); RED BLOOD COUNT 3.63 x10e6/uL (3.6-5.1); RED CELL DISTRIBUTION WIDTH 12.8 % (11.7-14.4)
[2019-01-16 06:26] LABS: ALANINE AMINOTRANSFERASE 26 IU/L (0-55); ALBUMIN 3.2 g/dL (3.5-5.0); ALKALINE PHOSPHATASE 71 IU/L (40-150); BLOOD UREA NITROGEN < 5 mg/dL (7-26); CALCIUM 8.9 mg/dL (8.4-10.2); CARBON DIOXIDE 25 mmol/L (22-29); CHLORIDE 108 mmol/L (98-107); CREATININE, SERUM 0.82 mg/dL (0.57-1.11); EST GLOMERULAR FILTRATION RATE > 60 ML/MIN (60-); GLUCOSE 80 mg/dL (74-118); SODIUM 143 mmol/L (136-145)
[2019-01-16 06:29] LABS: BUN/CREATININE RATIO 6 (6-25)
--- NOTE | 2019-01-16 06:54 | NUR ---
RECEIVED REPORT FROM OFFGOING NURSE. PATIENT IS IN STABLE CONDITION. DENIES PAIN OR DISCOMFORT AT THIS TIME. CALL LIGHT WITHIN REACH. BED IN THE LOWEST POSITION.
[2019-01-16] MEDS: LEVOFLOXACIN 500MG/D5W 100ML 100 ML IV SCH (07:14)
[2019-01-16] MEDS: INSULIN LISPRO 100 UNIT/1 ML 3ML VIAL SQ SCH ×4 (07:30→19:55)
[2019-01-16] MEDS: METFORMIN HCL 500 MG TAB PO SCH ×2 (08:00→17:01)
[2019-01-16] MEDS ORDERED: POTASSIUM CHLORIDE 20MEQ/100ML 200 ML IV ONE (08:45)
--- NOTE | 2019-01-16 09:03 | NUR ---
PATIENT REFUSING PO POTASSIUM, NOTIFIED
[2019-01-16] MEDS ORDERED: SODIUM CHLORIDE 0.9% 500ML 500 ML ONE (09:14)
[2019-01-16] MEDS ORDERED: POTASSIUM CHLORIDE 20 MEQ TAB CR PO NR (09:15)
[2019-01-16] MEDS: FLUCONAZOLE 100 MG TAB PO SCH (09:20)
[2019-01-16] MEDS: MULTIVITAMINS/MINERALS TAB PO SCH (09:20)
[2019-01-16] MEDS: DICYCLOMINE HCL 20 MG TAB PO SCH ×4 (09:20→21:22)
[2019-01-16] MEDS: METOPROLOL TARTRATE 50 MG TAB PO SCH ×2 (09:20→17:01)
[2019-01-16] MEDS: SUCRALFATE 1 GM TAB PO SCH ×4 (09:20→21:22)
[2019-01-16] MEDS: ENALAPRIL MALEATE 10 MG TAB PO SCH (09:21)
[2019-01-16] MEDS: AMLODIPINE BESYLATE 5 MG TAB PO SCH (09:21)
[2019-01-16] MEDS ORDERED: POTASSIUM CHLORIDE 10MEQ EA PO ONE (10:15)
--- NOTE | 2019-01-16 10:24 | NUR ---
PAGED DR. Savannah DIAMOND TO CLARIFY PO POTASSIUM ORDER DUE TO PATIENT REFUSING.
--- NOTE | 2019-01-16 11:18 | NUR ---
DR. DIAMOND NOTIFIED THAT PATIENT IS REFUSING PO POTASSIUM AND THAT CARDIOLOGY ALREADY ORDERED IV POTASSIUM REPLACEMENT.
--- NOTE | 2019-01-16 11:50 | NUR ---
PAGED DR. Savannah DIAMOND FOR ORDERS, PATIENT IS FEELING NAUSEOUS AND ZOFRAN IS NOT AVAILABLE AT THIS TIME.
--- NOTE | 2019-01-16 12:59 | NUR ---
PAGED DR. Savannah DIAMOND A SECOND TIME TO NOTIFY HIM THAT PATIENT IS STILL FEELING NAUSEOUS AND VOMITED X1.
--- NOTE | 2019-01-16 14:47 | Consultation ---
DATE OF CONSULTATION: 01/15/2019 REASON FOR CONSULTATION: Ischemic colitis. HISTORY OF PRESENT ILLNESS: This is a pleasant 43-year-old female, who presented with abdominal pain. According to the patient, last month she had a recent abdominal surgery and has not been feeling since then. She complained of nausea and vomiting, thus she decided to come back to the emergency room for further evaluation. She has history of Crohn disease and diverticulitis in the past. She denied any chest pain, any palpitation, any dizziness, any headache, any diaphoresis. She stated yesterday she vomited x1. She had an EKG done that showed normal sinus rhythm with no ST abnormalities. PAST MEDICAL HISTORY: Hypertension, diabetes, Crohn disease, diverticulitis, umbilical hernia, and ischemic colitis. PAST SURGICAL HISTORY: Foot surgery, breast augmentation, colon resection, exploratory laparotomy, , tonsillectomy, cholecystectomy, and EGD. FAMILY HISTORY: Positive for diabetes, hypertension, and CAD. SOCIAL HISTORY: No smoking. No drinking. She lives at home with family. MEDICATIONS: See med list. ALLERGIES: SHE HAS MULTIPLE ALLERGIES, SEE CHART. REVIEW OF SYSTEMS: Negative except those mentioned above. She is positive for abdominal pain. PHYSICAL EXAMINATION: VITAL SIGNS: Temperature 98, heart rate 70, blood pressure 125/88, respirations 20, and oxygen saturation 97% on room air. GENERAL: She is awake, alert, and oriented x3. HEENT: Mucous membranes are moist. NECK: Supple. LUNGS: Bilaterally clear to auscultation. CARDIOVASCULAR: S1 and S2 present. ABDOMEN: Soft. NEUROLOGIC: Intact. EXTREMITIES: No edema. LABS: Sodium 143, potassium 3.0, chloride 108, CO2 of 25, BUN 5, creatinine 0.82, and glucose 80. White blood cells 6.25, hemoglobin 10.7, hematocrit 33.2, and platelets 252. PT 14.2, INR 1.05. IMPRESSION: 1. Abdominal pain. 2. Hypertension. 3. Diabetes. 4. Anemia. 5. Hypokalemia. 6. Ischemic colitis. PLAN: 1. She is still complaining of abdominal pain off and on and she vomited x1. 2. She is on multiple blood pressure medications. We will continue the same. 3. She is status post hemicolectomy last month. 4. We will get an echocardiogram to assess the LV and the valve function. 5. Potassium is low and has been replaced. 6. We will check EKG. Further cardiac workup pending clinical course. Thank you for this consultation. Dictated by Ambrosio Little, WIPING CLOTH CUTTER MD KELSI Disla/TONIE /[id number]
--- NOTE | 2019-01-16 15:20 | NUR ---
Visit made by the Spiritual Care Department Pastoral Visitor, Ashley Flower. PV provided pastoral presence, prayer, hospitality, and supportive listening. Pastoral Visitor informed pt/family of the scope of Director Of Business Applications Services and availability. ALEXI NUR Dental Laboratory Assistant Spiritual Care Department O: [phone] Pager: [phone] ([phone] number calling from)
--- NOTE | 2019-01-16 19:13 | NUR ---
REPORT GIVEN TO ONCOMING NURSE, WALKING ROUNDS DONE. PATIENT IS RESTING IN BED. NO ACUTE DISTRESS NOTED. CALL LIGHT WITHIN REACH. BED IN THE LOWEST POSITION.
--- NOTE | 2019-01-16 23:30 | NUR ---
LEJ PLACED BY EMT ER. NO BLEEDING OR BRUISING NOTED.
[2019-01-16] MEDS: IRON SUCROSE 100 MG in SODIUM CHLORIDE 0.9% 100 ML 100 ML IV SCH (23:32)
[2019-01-17] VITALS (7 sets, daily range): BP systolic 118–145; BP diastolic 75–87
[2019-01-17] MEDS: ONDANSETRON HCL INJ 2MG/ML 2ML 2 MG/ML VIAL IV PRN ×4 (03:30→23:14)
[2019-01-17] MEDS: MORPHINE SULFATE INJ 4 MG/ML INJ 1ML IV PRN ×2 (04:13→08:20)
[2019-01-17] MEDS: METRONIDAZOLE 500MG/NS 100ML 100 ML IV SCH ×4 (05:20→22:58)
[2019-01-17] MEDS: PANTOPRAZOLE 40 MG 10ML VIAL IV SCH ×2 (05:20→17:00)
[2019-01-17 06:00] LABS: BLOOD UREA NITROGEN 5 mg/dL (7-26); BUN/CREATININE RATIO 6 (6-25); CALCIUM 8.7 mg/dL (8.4-10.2); CARBON DIOXIDE 25 mmol/L (22-29); CHLORIDE 106 mmol/L (98-107); CREATININE, SERUM 0.85 mg/dL (0.57-1.11); EST GLOMERULAR FILTRATION RATE > 60 ML/MIN (60-); GLUCOSE 101 mg/dL (74-118); SODIUM 140 mmol/L (136-145)
[2019-01-17] MEDS: LEVOFLOXACIN 500MG/D5W 100ML 100 ML IV SCH (06:10)
[2019-01-17] MEDS: INSULIN LISPRO 100 UNIT/1 ML 3ML VIAL SQ SCH ×4 (07:30→20:21)
--- NOTE | 2019-01-17 08:25 | NUR ---
Pt received resting in bed. Alert and oriented x4 with saline lock #18 in left EJ with fluid ongoing. Oriented to staff and surroundings, encouraged to press call marti if help needed. Emotional support given. Fall precautions maintained. Will monitor
[2019-01-17] MEDS: SUCRALFATE 1 GM TAB PO SCH ×4 (08:26→20:59)
[2019-01-17] MEDS: FLUCONAZOLE 100 MG TAB PO SCH (08:27)
[2019-01-17] MEDS: METFORMIN HCL 500 MG TAB PO SCH ×2 (08:27→17:00)
[2019-01-17] MEDS: DICYCLOMINE HCL 20 MG TAB PO SCH ×4 (08:27→20:59)
[2019-01-17] MEDS: METOPROLOL TARTRATE 50 MG TAB PO SCH ×2 (08:28→17:01)
[2019-01-17] MEDS: AMLODIPINE BESYLATE 5 MG TAB PO SCH (08:29)
[2019-01-17] MEDS: ENALAPRIL MALEATE 10 MG TAB PO SCH (08:29)
[2019-01-17] MEDS: MULTIVITAMINS/MINERALS TAB PO SCH (08:29)
[2019-01-17] MEDS ORDERED: POTASSIUM CHLORIDE 20MEQ/100ML 200 ML IV ONE (09:45)
[2019-01-17] MEDS ORDERED: MAGNESIUM OXIDE 400 MG TAB PO SCH (10:00)
[2019-01-17] MEDS ORDERED: ACETAMINOPHEN/CODEINE 300MG - 30MG TAB PO PRN (10:00)
[2019-01-17] MEDS ORDERED: MORPHINE SULFATE 2 MG/ML SYR 1ML IV PRN (10:00)
[2019-01-17] MEDS ORDERED: HYDROMORPHONE 1MG/1ML INJ IV PRN (10:15)
[2019-01-17] MEDS ORDERED: MORPHINE SULFATE INJ 4 MG/ML INJ 1ML IV PRN (10:15)
[2019-01-17] MEDS ORDERED: FENTANYL 25 MCG/HR PATCH TOP SCH (12:00)
[2019-01-17] MEDS ORDERED: SODIUM CHLORIDE 0.9% 500ML 500 ML ONE ×2 (12:01→17:01)
[2019-01-17] MEDS: HYDROCODONE/APAP 10MG-325MG TAB PO PRN ×3 (12:05→21:14)
[2019-01-17] MEDS: POTASSIUM CHLORIDE 20MEQ/100ML 100 ML IV SCH ×2 (12:23→14:16)
--- NOTE | 2019-01-17 14:36 | NUR ---
Nutrition Intervention Note RD Recommendation(s) for Physician: - Continue 1800 ADA diet - Recommend Glucerna Shake BID - Diet education provided 01/17 Pt meets criteria for moderate protein calorie malnutrition Plan of Care: RD following, monitoring for tolerance and adequacy, ONS rec's Nutrition reason for involvement: Follow up RD Assessment 01/17: Pt discussed during AM rounds. Pt with ongoing N/V with episode of vomiting yesterday. Pt with fluctuating po intake with average of 50% of meals, discussed supplementation- pt receptive to trying Glucerna Shake. Pt educated on Low FODMAP diet, education materials provided- unable to provide recall at time of visit due to pain meds. Chart reviewed. Will monitor and continue to follow. Initial encounter with pt. Pt states that she has a usual BW of 193lbs and her current wt is 157.25 pounds. Pt with nausea, vomiting and diarrhea currently. Pt with a Hx of Exploratory laparotomy with colectomy. Principal Problems/Diagnoses: Diverticulitis PMH:Diabetes mellitus, hypertension, Crohn's disease. GI: LBM 01/17 x 3; Nausea, vomiting and diarrhea Skin: abdominal surgical incision Labs: 01/17: K 3, BUN 5 Meds: mag ox, lispro, carafate, bentyl, MVI with minerals, questran, diflucan, glucophage, zofran, protonix Malnutrition Evaluation (01/13/2019) The patient meets criteria for MODERATE protein-calorie malnutrition. Energy intake: <75% of estimated energy requirements for >1 month Weight loss: > 5% in 1 month (Chronic) Diet Education Needs Assessment: Diet education indicated, pt receptive. Pt educated on low FODMAP diet due crohn's and diverticular disease. Ht:62 Wt:157.25lbs BMI:28.8kg/m2 IBW:110lbs Estimated Nutritional Needs: 0373-4511 kcals at 25-30 kcals/kg/bw 71-107g of protein at 1-1.5g/kg/bw Nutrition Prescription (Diet Order): 1800 ADA Food Allergies: N/A Diet Adequacy: Not meeting calorie needs, Not meeting protein needs Tolerance: Tolerance varies- ongoing N/V Nutrition Care Level: Moderate Nutrition Diagnosis: Malnutrition related to chronic illness as evidenced by involuntary wt loss Goal:Patient will meet 75-100% of estimated needs by follow up Progress: Not Progressing Interventions: -CHO modified diet Monitoring/Evaluation: Total energy intake, Total protein intake, Weight change Signed: Kortney Castañeda RD, ODILON, CNSC
--- NOTE | 2019-01-17 16:37 | NUR ---
DISCUSSED PT IN I.C.C. TODAY PT STILL NAUSEATED PLAN DC HOME TOMORROW
--- NOTE | 2019-01-17 19:00 | NUR ---
Patient visited in room during nursing rounds. Patient alert and oriented x3. No distress noted. Pt with frequent and intermittent abdominal pain. Pt ambulatory in and out of room prn. Pt on scheduled IV antibiotics. Call marti within reach. Will monitor pt closely.
[2019-01-17] MEDS: IRON SUCROSE 100 MG in SODIUM CHLORIDE 0.9% 100 ML 100 ML IV SCH (20:59)
--- NOTE | 2019-01-17 22:00 | NUR ---
Patient taking a shower bath at this time. Pt in stable condition.
[2019-01-17] MEDS: HYDROMORPHONE 2MG/ML 2 MG/ML ML IV PRN (23:14)
[2019-01-18] VITALS (7 sets, daily range): BP systolic 119–143; BP diastolic 70–87
[2019-01-18] MEDS: HYDROMORPHONE 2MG/ML 2 MG/ML ML IV PRN ×3 (04:12→21:15)
[2019-01-18] MEDS: ONDANSETRON HCL INJ 2MG/ML 2ML 2 MG/ML VIAL IV PRN ×3 (04:12→21:14)
[2019-01-18] MEDS: METRONIDAZOLE 500MG/NS 100ML 100 ML IV SCH ×3 (06:25→22:45)
[2019-01-18] MEDS: PANTOPRAZOLE 40 MG 10ML VIAL IV SCH ×2 (06:25→17:30)
[2019-01-18 06:54] LABS: ANION GAP 13.7 mmol/L (8-16); BLOOD UREA NITROGEN < 5 mg/dL (7-26); CALCIUM 8.3 mg/dL (8.4-10.2); CARBON DIOXIDE 21 mmol/L (22-29); CHLORIDE 106 mmol/L (98-107); CREATININE, SERUM 0.79 mg/dL (0.57-1.11); EST GLOMERULAR FILTRATION RATE > 60 ML/MIN (60-); GLUCOSE 91 mg/dL (74-118); POTASSIUM 3.7 mmol/L (3.5-5.1); SODIUM 137 mmol/L (136-145)
[2019-01-18 06:56] LABS: BUN/CREATININE RATIO 6 (6-25)
[2019-01-18] MEDS: LEVOFLOXACIN 500MG/D5W 100ML 100 ML IV SCH (07:15)
[2019-01-18] MEDS: INSULIN LISPRO 100 UNIT/1 ML 3ML VIAL SQ SCH ×4 (07:30→21:00)
[2019-01-18] MEDS: METFORMIN HCL 500 MG TAB PO SCH ×2 (08:55→16:55)
[2019-01-18] MEDS: DICYCLOMINE HCL 20 MG TAB PO SCH ×4 (08:55→21:00)
[2019-01-18] MEDS: SUCRALFATE 1 GM TAB PO SCH ×4 (08:55→21:00)
[2019-01-18] MEDS: METOPROLOL TARTRATE 50 MG TAB PO SCH ×2 (08:55→17:27)
[2019-01-18] MEDS: HYDROCODONE/APAP 10MG-325MG TAB PO PRN ×2 (08:55→13:43)
[2019-01-18] MEDS: FLUCONAZOLE 100 MG TAB PO SCH (08:55)
--- NOTE | 2019-01-18 08:55 | NUR ---
Pt received resting in bed. All meds given as ordered. IV infiltrated, will attempt to insert a saline lock. Will monitor
[2019-01-18] MEDS: ENALAPRIL MALEATE 10 MG TAB PO SCH (08:56)
[2019-01-18] MEDS: MULTIVITAMINS/MINERALS TAB PO SCH (08:56)
[2019-01-18] MEDS: AMLODIPINE BESYLATE 5 MG TAB PO SCH (08:56)
--- NOTE | 2019-01-18 13:30 | NUR ---
Pt without IV access. Attempted thrice to insert IV without success. Hospital Unit Coordinator made aware, and awaiting radiology nurse to insert IV.
--- NOTE | 2019-01-18 16:55 | NUR ---
Right AC saline lock inserted by radiology nurse, and IV infiltrated during use. Funeral Workers made aware. Emotional support given. Will follow up
--- NOTE | 2019-01-18 19:00 | NUR ---
Patient visited in room during nursing rounds. Patient alert and oriented x3. No distress noted. Pt with frequent and intermittent abdominal pain. Pt ambulatory in and out of room prn. Pt on scheduled IV antibiotics. Currently no IV access due to last IV infiltrated. Call marti within reach. Will monitor pt closely.
--- NOTE | 2019-01-18 19:45 | NUR ---
After 4 attempts, new IV started on left hand 22g. New IV flushes well with good blood return.
--- NOTE | 2019-01-18 20:30 | NUR ---
Patient had a bath by self.
[2019-01-18] MEDS: IRON SUCROSE 100 MG in SODIUM CHLORIDE 0.9% 100 ML 100 ML IV SCH (21:00)
[2019-01-19] VITALS: BP 109/73
[2019-01-19 04:00] VITALS: BP 139/78
[2019-01-19 06:30] LABS: ANION GAP 13.5 mmol/L (8-16); BLOOD UREA NITROGEN < 5 mg/dL (7-26); CALCIUM 9.2 mg/dL (8.4-10.2); CARBON DIOXIDE 22 mmol/L (22-29); CHLORIDE 107 mmol/L (98-107); CREATININE, SERUM 0.97 mg/dL (0.57-1.11); EST GLOMERULAR FILTRATION RATE > 60 ML/MIN (60-); GLUCOSE 96 mg/dL (74-118); POTASSIUM 3.5 mmol/L (3.5-5.1); SODIUM 139 mmol/L (136-145)
[2019-01-19] MEDS ORDERED: SODIUM CHLORIDE 0.9% 250ML 250 ML ONE (06:35)
[2019-01-19 06:36] LABS: BUN/CREATININE RATIO 5 (6-25)
[2019-01-19] MEDS: METRONIDAZOLE 500MG/NS 100ML 100 ML IV SCH (06:43)
[2019-01-19] MEDS: PANTOPRAZOLE 40 MG 10ML VIAL IV SCH (06:43)
--- NOTE | 2019-01-19 07:05 | NUR ---
RECEIVED PATIENT RESTING IN BED. NO ACUTE DISTRESS NOTED. CALL LIGHT WITHIN REACH. BED IN THE LOWEST POSITION.
[2019-01-19] MEDS: INSULIN LISPRO 100 UNIT/1 ML 3ML VIAL SQ SCH (07:30)
[2019-01-19 07:36] VITALS: BP 125/78
[2019-01-19 08:08] VITALS: BP 125/78
[2019-01-19] MEDS ORDERED: VENLAFAXINE HCL 75 MG CAPCR PO SCH (09:00)
[2019-01-19] MEDS: ONDANSETRON HCL INJ 2MG/ML 2ML 2 MG/ML VIAL IV PRN (09:06)
[2019-01-19] MEDS: HYDROMORPHONE 2MG/ML 2 MG/ML ML IV PRN (09:06)
[2019-01-19] MEDS: LEVOFLOXACIN 500MG/D5W 100ML 100 ML IV SCH (09:07)
[2019-01-19] MEDS: METFORMIN HCL 500 MG TAB PO SCH (09:07)
[2019-01-19] MEDS: SUCRALFATE 1 GM TAB PO SCH (09:07)
[2019-01-19] MEDS: ENALAPRIL MALEATE 10 MG TAB PO SCH (09:08)
[2019-01-19] MEDS: AMLODIPINE BESYLATE 5 MG TAB PO SCH (09:08)
[2019-01-19] MEDS: FLUCONAZOLE 100 MG TAB PO SCH (09:08)
[2019-01-19] MEDS: DICYCLOMINE HCL 20 MG TAB PO SCH (09:08)
[2019-01-19] MEDS: MULTIVITAMINS/MINERALS TAB PO SCH (09:08)
[2019-01-19] MEDS: METOPROLOL TARTRATE 50 MG TAB PO SCH (09:08)
[2019-01-19] MEDS ORDERED: POTASSIUM CHLORIDE 20MEQ/15ML UDC PO SCH (10:00)
[2019-01-19] MEDS ORDERED: POTASSIUM CHLORIDE 10MEQ EA PO ONE (10:00)
--- NOTE | 2019-01-19 10:01 | NUR ---
PAGED DR. SANDS TO NOTIFY HIM THAT PATIENT IS BEING DISCHARGED.
[2019-01-19] MEDS ORDERED: POTASSIUM CHLORIDE 10MEQ EA PO SCH (10:15)
--- NOTE | 2019-01-19 10:43 | NUR ---
RECEIVED DC ORDER FROM MD. PATIENT IS IN STABLE CONDITION. NO ACUTE DISTRESS NOTED. IV LINE TO LEFT HAND DCD AT 1034 WITH TIP INTACT, PRESSURE APPLIED TO SITE, NO BLEEDING NOTED. DISCHARGE FOLDER AND PERSONAL ITEMS ON HAND. PATIENT ACCOMPANIED TO PRIVATE AUTO VIA WHEELCHAIR BY STAFF.
--- NOTE | 2019-01-19 14:17 | Consultation ---
DATE OF CONSULTATION: 01/18/2019 Psychiatric Consultation REASON FOR CONSULTATION: To evaluate the patient's mood. HISTORY OF PRESENT ILLNESS: The patient is a 43-year-old female, admitted to the hospital for diverticulitis. Psychiatric consultation is called to evaluate patient's mood. As per the medical record, the patient was seen in the ER due to worsening of nausea, vomiting, and abdominal pain. History includes diverticulosis, Crohn disease, ischemic colitis, hypertension, diabetes type 2. The patient is found in the room. She is alert, awake, and oriented to situation. Her mood is anxious. She denies any depression. She denies any suicidal or homicidal ideation. She denies any hallucination. Thought process is concrete. The patient claims she is doing fair at this time. Pain medication is controlled. She denies any problem with sleep, but reports appetite problem. She is calm and cooperative. As per nursing staff, the patient has been med seeking. She has been anxious. PAST PSYCHIATRIC HISTORY: The patient denies past psychiatric history. She denies past suicide attempts. She denies alcohol or drug use. FAMILY HISTORY: Denies. SOCIAL HISTORY: The patient says she lives with her parents. MENTAL STATUS EXAM: The patient is a middle-aged female. She is alert, awake, and oriented to situation. Her mood is anxious. She denies suicidal or homicidal ideation. She denies any hallucination. Thought process is concrete. Affect is congruent with mood. Psychomotor state is passive. Insight and judgment are fair. CURRENT MEDICATIONS: 1. Pantoprazole. 2. Metronidazole. 3. [place] Ledge. 4. Ondansetron. 5. Dicyclomine. 6. Iron. 7. Sucralfate. 8. Metoprolol. 9. Metformin. 10. [place]edge. 11. Multivitamin. 12. Enalapril. 13. Amlodipine. 14. Fluticasone. 15. Fentanyl. 16. Insulin. 17. Levofloxacin. 18. Magnesium. 19. Acetaminophen. 20. Cholestyramine. 21. Acetaminophen. 22. Dextrose. 23. Hydralazine. LABORATORY DATA: Current labs: WBC 6.25, RBC 3.63, hemoglobin 10.7, hematocrit 33.2, platelets is 252. Chemistry; sodium 139, potassium 3.5, chloride 107, CO2 22, BUN less than 5, creatinine 0.97. ASSESSMENT: Adjustment disorder with mixed mood (anxiety). PLAN: 1. Add Effexor XR 75 mg p.o. daily. 2. Monitor for mood. 3. Supportive therapy. Thank you for this consultation. Dictated by Nida Hernandez PA-C Delbert Kaiser MD QTV/MODL /[id number]
--- NOTE | 2019-01-20 08:52 | Discharge Summary ---
HISTORY: She is a 43-year-old female patient, presented to the emergency room with a complaint of severe abdominal pain. ADMITTING IMPRESSION AND DIAGNOSES: Acute diverticulitis, abdominal pain, status post ischemic colitis, intractable pain, amenia, hypokalemia, and hypertension. HOSPITAL COURSE/SUMMARY: The patient was admitted with the above diagnoses. The patient was treated with IV antibiotics; Levaquin and Flagyl. The patient had a CT scan done in the emergency room and the patient was found to have ascending colonic diverticulitis and cecal colitis, but no abscess. The patient had recent surgery. She had colectomy and appendectomy. The colectomy for adhesion and colitis. The patient improved, but she continued to have a pain, so pain Management and Psych consults were done. GI consult was also done. Cardiology evaluation was done for ischemic colitis, Dr. Alvarez. The patient had improved significantly with the antibiotic treatment and the pain management. Now upon stabilization, the patient will be discharged home and will be followed up as outpatient. The patient has echocardiogram done by Dr. Alvarez and ejection fraction was 55%-60% and there was no vegetation and negative. MD ELLEN Holder/MODL /[id number]
== END 2019-01-19 10:42 | disposition home or self-care (01) | DRG 392 ==
LOC: ER 18:20 → ERHOLD 21:54 → INTOOBSV 21:54 → MED/SURG3 23:29 → OBSVTOIN 01-15 10:34
PROVIDERS: ADMIT Internal Medicine; ATTEND Internal Medicine
DX: K57.30 Diverticulosis of large intestine without perforation or abscess without bleeding (principal); K55.9 Vascular disorder of intestine, unspecified; D64.9 Anemia, unspecified; I10 Essential (primary) hypertension; E11.9 Type 2 diabetes mellitus without complications; Z90.49 Acquired absence of other specified parts of digestive tract; G89.18 Other acute postprocedural pain; E87.6 Hypokalemia; R19.7 Diarrhea, unspecified; K29.70 Gastritis, unspecified, without bleeding; F43.23 Adjustment disorder with mixed anxiety and depressed mood
CPT/HCPCS: 36415; 74022; 80048; 80053; 81001; 81025; 82270; 82607; 82728; 82746; 82948; 83540; 83735; 84466; 85025; 85610; 85651; 86039; 86140; 93005; 93306; 96374; 96375; 99284; G0378; J1756; J1956; J2270; J2405; J3475; J3480; J7030; J7040; J7050

== ENCOUNTER 2019-02-01 20:21 | Emergency (ER) | payer OTHER ==
--- OUTSIDE RECORDS SUMMARY | 2019-02-01 20:24 | XMS REPORT | Clinical Summary ---
Author Author [facility] Organization [facility] Address Unknown Phone Unavailable Care Team Providers Care Oracle Business Intelligence Developer Name Role Phone Dileep Carballo MD PCP [...] 02/16/2018 Emergency Emergency Medicine - 02/17/2018 after 01/31/2018 Social History Date Tobacco Use Types Packs/Day [...] Taken Vital Sign Reading 12/05/2018 8:56 PM STERILE SUPERVISOR Blood Pressure 150/89 12/05/2018 8:56 PM STERILE SUPERVISOR Pulse 79 12/05/2018 8:56 PM STERILE SUPERVISOR Temperature 36.5 C (97.7 F) 12/05/2018 8:56 PM STERILE SUPERVISOR Respiratory Rate 16 12/05/2018 8:56 PM STERILE SUPERVISOR Oxygen Saturation 98% - Inhaled Oxygen - Concentration 12/05/2018 6:25 PM STERILE SUPERVISOR Weight 83.5 kg (184 lb) 12/05/2018 6:25 PM STERILE SUPERVISOR Height 157.5 cm (5' 2") 12/05/2018 6:25 PM STERILE SUPERVISOR Body Mass Index 33.65 Plan of Treatment Health Maintenance Due Date Last Done Comments CERVICAL CANCER SCREENING 1995 INFLUENZA VACCINE 05/31/2019 Procedures Comments Procedure Name Priority Date/Time Associated Diagnosis CT ABDOMEN PELVIS WO STAT 12/05/2018 CONTRAST 7:17 PM STERILE SUPERVISOR XR CHEST 1 VW PORTABLE STAT 12/05/2018 7:10 PM STERILE SUPERVISOR HCG QUALITATIVE, URINE STAT 12/05/2018 SCREEN 7:00 PM STERILE SUPERVISOR URINALYSIS SCREEN AND STAT 12/05/2018 MICROSCOPY, WITH REFLEX 7:00 PM STERILE SUPERVISOR TO CULTURE TROPONIN STAT 12/05/2018 6:50 PM STERILE SUPERVISOR ESTIMATED GFR STAT 12/05/2018 6:50 PM STERILE SUPERVISOR LIPASE LEVEL STAT 12/05/2018 6:50 PM STERILE SUPERVISOR AMYLASE LEVEL STAT 12/05/2018 6:50 PM STERILE SUPERVISOR COMPREHENSIVE METABOLIC STAT 12/05/2018 PANEL 6:50 PM STERILE SUPERVISOR HC COMPLETE BLD COUNT STAT 12/05/2018 W/AUTO DIFF 6:50 PM STERILE SUPERVISOR ECG ED PRELIMINARY Routine 12/05/2018 INTERPRETATION 6:28 PM STERILE SUPERVISOR ECG 12-LEAD Routine 12/05/2018 6:21 PM STERILE SUPERVISOR ECG ED PRELIMINARY Routine 11/28/2018 INTERPRETATION 9:33 PM STERILE SUPERVISOR ECG 12-LEAD STAT 11/28/2018 8:58 PM STERILE SUPERVISOR ESTIMATED GFR STAT 11/28/2018 7:52 PM STERILE SUPERVISOR TROPONIN STAT 11/28/2018 7:52 PM STERILE SUPERVISOR CREATINE KINASE, TOTAL STAT 11/28/2018 (CPK) 7:52 PM STERILE SUPERVISOR LIPASE LEVEL STAT 11/28/2018 7:52 PM STERILE SUPERVISOR COMPREHENSIVE METABOLIC STAT 11/28/2018 PANEL 7:52 PM STERILE SUPERVISOR PARTIAL THROMBOPLASTIN STAT 11/28/2018 TIME (PTT) 7:52 PM STERILE SUPERVISOR PROTHROMBIN TIME WITH INR STAT 11/28/2018 7:52 PM STERILE SUPERVISOR HC COMPLETE BLD COUNT STAT 11/28/2018 W/AUTO DIFF 7:52 PM STERILE SUPERVISOR URINALYSIS SCREEN AND STAT 11/28/2018 MICROSCOPY, WITH REFLEX 7:45 PM STERILE SUPERVISOR TO CULTURE CT ABDOMEN PELVIS WO STAT 11/28/2018 CONTRAST 7:35 PM STERILE SUPERVISOR XR CHEST 2 VW STAT 11/28/2018 7:19 PM STERILE SUPERVISOR ZZESTIMATED GFR STAT 02/16/2018 9:38 PM CDT COMPREHENSIVE METABOLIC STAT 02/16/2018 PANEL 9:38 PM CDT HC COMPLETE BLD COUNT STAT 02/16/2018 W/AUTO DIFF 9:[address] RENAL STONE PROTOCOL STAT 02/16/2018 9:27 PM CDT URINALYSIS SCREEN AND STAT 02/16/2018 MICROSCOPY, WITH REFLEX 7:09 PM CDT TO CULTURE URINE CULTURE STAT 02/16/2018 7:09 PM CDT GRAM STAIN STAT 02/16/2018 7:09 PM CDT after 01/31/2018 Results * CT Abdomen Pelvis Wo Contrast (12/05/2018 7:17 PM STERILE SUPERVISOR) Only the most recent of 2 results [...] abdominal or pelvic pathology. [facility]-[id number] Procedure Note [facility], Radiology Results Incoming - 12/05/2018 7:25 PM STERILE SUPERVISOR EXAMINATION: CT ABDOMEN PELVIS WO CONTRAST CLINICAL [...] abdominal or pelvic pathology. [facility]-[id number] Performing Organization Address [facility] Phone Number [facility] [address] [place] [address] * XR Chest 1 Vw Portable (12/05/2018 7:10 PM STERILE SUPERVISOR) Narrative Performed At EXAMINATION:XR CHEST 1 VW PORTABLE [facility] CLINICAL HISTORY:Shortness of breath TECHNIQUE:XR CHEST 1 VW PORTABLE COMPARISON:Chest radiograph dated 11/28/2018 FINDINGS: Lines/tubes:None. Heart and mediastinum:Unremarkable Lungs:There is minimal atelectasis/scarring at the lung bases.There is no focal consolidation. There is no evidence of pulmonary edema. Pleura:There is no pleural effusion. There is no pneumothorax. Bones and Soft Tissues:Unremarkable. IMPRESSION: No acute cardiopulmonary abnormality. [facility]-[id number] Procedure Note Hm Interface, Radiology Results Incoming - 12/05/2018 7:21 PM STERILE SUPERVISOR EXAMINATION: XR CHEST 1 VW PORTABLE CLINICAL [...] No acute cardiopulmonary abnormality. [facility]-[id number] Performing Organization Address [facility] Phone Number [facility] [address] [place] [address] * Urinalysis screen and microscopy, with reflex to culture (12/05/2018 7:00 PM STERILE SUPERVISOR) Only the most recent of 3 results within the time period is included. Specimen site Clean catch [facility] Color, UA Straw [facility] Appearance, UA Clear [facility] Specific gravity, UA 1.008 1.001 - 1.035 [facility] pH, UA 5.0 5.0 - 8.5 [facility] Protein, UA Negative Negative [facility] Glucose, UA Negative Negative [facility] Ketones, UA Negative Negative [facility] Bilirubin, UA Negative Negative [facility] Blood, UA Negative Negative [facility] Nitrite, UA Negative Negative [facility] Urobilinogen, UA Negative <2.0 [facility] Leukocyte esterase, UA Negative Negative [facility] Epithelial cells, UA Few /HPF [facility] Round epithelial cells, Few 0 - 1 /HPF [facility] WBC, UA 0-5 0 - 4 /HPF [facility] RBC, UA 0-5 0 - 5 /HPF [facility] Bacteria, UA Trace None seen [facility] Yeast, UA None seen [facility] Yeast with pseudohyphae, None seen [facility] Specimen Urine Performing Organization Address [facility] Phone Number [address] [place] [address] PATHOLOGY AND GENOMIC MEDICINE [address] * hCG qualitative, urine screen (12/05/2018 7:00 PM STERILE SUPERVISOR) hCG qualitative, urine Negative Negative [facility] Comment: [facility] The manufacturers stated sensitivity of HcG test for serum is >/=10 mIU/ml and urine is >/=20mIU/ml. Specimen Urine Performing Organization Address [facility] Phone Number [address] [place] [address] PATHOLOGY AND GENOMIC MEDICINE [address] * Estimated GFR (12/05/2018 6:50 PM STERILE SUPERVISOR) Only the most recent of 2 results within the time period is included. Estimated GFR >=90 mL/min/1.73 m2 [facility] Comment: [facility] CatergoryUnitsInte rpretation G1 >=90 Normal or high G2 60-89Mildly decreased [id number] Mildly to moderately decreased [id number] Moderately to severely decreased G4 15-29Severely decreased G5 <15Kidney failure The eGFR was calculated using the Chronic Kidney Disease Epidemiology Collaboration (CKD-EPI) equation. Interpretation is based on recommendations of the National Kidney Foundation-Kidney Disease Outcomes Quality Initiative (NKF-KDOQI) published in 2014. Specimen Plasma specimen Performing Organization Address City/[facility] Phone Number [address] [place] [address] PATHOLOGY AND GENOMIC MEDICINE [address] * Troponin (12/05/2018 6:50 PM STERILE SUPERVISOR) Only the most recent of 2 results within the time period is included. Troponin <0.300 0.000 - 0.300 ng/mL [facility] Comment: [facility] 0.30 - 1.49 ng/mlMay indicate increased risk of acute coronary syndrome. >=1.5 ng/ml Consistent with acute myocardial infarction. The diagnostic value of a single normal or non-diagnostic result is questionable.Serial samples at 2-6 hour intervals are required to rule out acute myocardial injury. Specimen Plasma specimen Performing Organization Address [facility] Phone Number [address] [place] [address] PATHOLOGY AND GENOMIC MEDICINE [address] * CBC with platelet and differential (12/05/2018 6:50 PM STERILE SUPERVISOR) Only the most recent of 3 results within the time period is included. WBC 10.70 4.50 - 11.00 k/uL [facility] RBC 4.19 (L) 4.20 - 5.50 m/uL [facility] HGB 12.9 12.0 - 16.0 g/dL [facility] HCT 39.0 37.0 - 47.0 % [facility] MCV 93.1 82.0 - 100.0 fL [facility] MCH 30.8 27.0 - 34.0 pg [facility] MCHC 33.1 31.0 - 37.0 g/dL [facility] RDW - SD 43.0 37.0 - 55.0 fL [facility] MPV 12.0 8.8 - 13.2 fL [facility] Platelet count 166 150 - 400 k/uL [facility] Nucleated RBC 0.00 /100 WBC [facility] Neutrophils 47.0 39.0 - 69.0 % [facility] Lymphocytes 46.9 (H) 25.0 - 45.0 % [facility] Monocytes 4.4 0.0 - 10.0 % [facility] Eosinophils 0.9 0.0 - 5.0 % [facility] Basophils 0.4 0.0 - 1.0 % [facility] Specimen Blood Performing Organization Address [facility] Phone Number [address] [place] [address] PATHOLOGY AND GENOMIC MEDICINE [address] * Lipase level (12/05/2018 6:50 PM STERILE SUPERVISOR) Only the most recent of 2 results within the time period is included. Lipase 41 13 - 60 U/L [facility] Specimen Plasma specimen Performing Organization Address [facility] Phone Number [address] [place] [address] PATHOLOGY AND GENOMIC MEDICINE [address] * Amylase level (12/05/2018 6:50 PM STERILE SUPERVISOR) Amylase 52 13 - 73 U/L [facility] Specimen Plasma specimen Performing Organization Address [facility] Phone Number [address] [place] [address] PATHOLOGY AND GENOMIC MEDICINE [address] * Comprehensive metabolic panel (12/05/2018 6:50 PM STERILE SUPERVISOR) Only the most recent of 3 results within the time period is included. Sodium 139 135 - 148 mEq/L [facility] Potassium 3.8 3.5 - 5.0 mEq/L [facility] Chloride 98 98 - 112 mEq/L [facility] CO2 23 (L) 24 - 31 mEq/L [facility] Anion gap 18@ANIO (H) 7 - 15 mEq/L [facility] BUN 9 6 - 20 mg/dL [facility] Creatinine 0.60 0.50 - 0.90 mg/dL [facility] Glucose 232 (H) 65 - 99 mg/dL [facility] Calcium 10.0 8.3 - 10.2 mg/dL [facility] Protein 8.0 6.3 - 8.3 g/dL [facility] Comment: [facility] 4.6-7.0 g/dL 1 week 4.4-7.6 g/dL 7 months-1year 5.1-7.3 g/dL 1-2 years5.6-7 .5 g/dL >3 years6.0-8 .0 g/dL 18-150 6.3-8.3 g/dL Albumin 4.8 3.5 - 5.0 g/dL [facility] A/G ratio 1.5 0.7 - 3.8 [facility] Alkaline phosphatase 97 35 - 104 U/L [facility] AST 48 (H) 10 - 35 U/L [facility] ALT 61 (H) 5 - 50 U/L [facility] Total bilirubin 0.4 0.0 - 1.2 mg/dL [facility] Specimen Plasma specimen Performing Organization Address City/State/Zipcode Phone Number [facility] [place] [id number] [place] [address] [place] [address] PATHOLOGY AND GENOMIC MEDICINE [facility] [id number] [place] [address] * ECG ED Preliminary Interpretation - Not an Order (12/05/2018 6:28 PM STERILE SUPERVISOR) Only the most recent of 2 results within the time period is included. Narrative Performed At Juan Yee MD 12/05/20189:03 PM ECG ED Preliminary Interpretation - Not an Order Performed by: Juan Yee MD Authorized by: Juan Yee MD ECG reviewed by ED Physician in the absence of a radiation control worker: yes Interpretation: Interpretation: normal Rate: ECG rate:83 ECG rate assessment: normal Rhythm: Rhythm: sinus rhythm Ectopy: Ectopy: none QRS: QRS axis:Normal QRS intervals:Normal Conduction: Conduction: normal ST segments: ST segments:Normal T waves: T waves: normal * ECG 12 lead (12/05/2018 6:21 PM STERILE SUPERVISOR) Only the most recent of 2 results [...] found- Narrative Performed At Performing Organization Address City/[facility] Phone Number [facility] [address] [place] [address] * Partial thromboplastin time, activated (11/28/2018 7:52 PM STERILE SUPERVISOR) PTT 32.9 23.0 - 36.0 sec [facility] Comment: [facility] PTT therapeutic range for unfractionated heparin is 61.0-112.0 seconds which corresponds to Anti-Xa 0.3-0.7 U/ml. Specimen Blood Performing Organization Address City/[facility]/Zipcode [place] [address] [place] [address] PATHOLOGY AND GENOMIC MEDICINE [facility] [address] [place] [address] [facility] * Prothrombin time with INR (11/28/2018 7:52 PM STERILE SUPERVISOR) Prothrombin time 12.3 11.5 - 14.5 sec [facility] INR 0.9 [facility] Comment: [facility] The International Normalized Ratio (INR) is a therapeutic monitoring tool for patients who are stable on oral anticoagulant therapy. An INR of 2.0-3.0 is suggested for deep vein thrombosis/pulmonary embolism. Specimen Blood Performing Organization Address [facility]/Zipcode Phone Number [address] [place] [address] PATHOLOGY AND GENOMIC MEDICINE [address] * Creatine kinase, total (CPK) (11/28/2018 7:52 PM STERILE SUPERVISOR) Creatine kinase 161 26 - 192 U/L [facility] Specimen Plasma specimen Performing Organization Address [facility] Phone Number [address] [place] [address] PATHOLOGY AND GENOMIC MEDICINE [address] * XR Chest 2 Vw (11/28/2018 7:19 PM STERILE SUPERVISOR) Narrative Performed At [facility], 11/28/2018 [facility] Clinical history:Epigastric pain Technique: PA and lateral views chest. Comparison: None DISCUSSION: The lungs are clear and symmetrically inflated. No pleural effusions. Cardiac size and mediastinal contour are normal. Pulmonary vasculature is normal.The skeleton is grossly intact. IMPRESSION: No acute abnormality. Procedure Note Interface, Radiology Results Incoming - 11/28/2018 7:27 PM STERILE SUPERVISOR [facility] CHEST, 11/28/2018 Clinical history: Epigastric pain Technique: PA and lateral views chest. Comparison: None DISCUSSION: The lungs are clear and symmetrically inflated. No pleural effusions. Cardiac size and mediastinal contour are normal. Pulmonary vasculature is normal. The skeleton is grossly intact. IMPRESSION: No acute abnormality. Performing Organization Address City/[facility]/Zipcode Phone Number [facility] [address] [place] [address] * Estimated GFR (02/16/2018 9:38 PM CDT) GFR Non Af Amer >90 mL/min/1.73 m2 [facility] DEPARTMENT OF PATHOLOGY AND GENOMIC MEDICINE GFR Af Amer >90 mL/min/1.73 m2 [facility] DEPARTMENT OF Comment: PATHOLOGY AND [...] Address City/State/Zipcode [place] [address] [place] [address] PATHOLOGY AND GENOMIC MEDICINE * CT Renal [...] the abdomen or pelvis. [facility]-[id number] Procedure Note Interface, Radiology Results [facility] - 02/16/2018 9:43 PM CDT Examination: [...] the abdomen or pelvis. [facility]-[id number] Performing Organization Address City/[facility]/Zipcode Phone Number [facility] [address] [place] [phone] * Gram stain (02/16/2018 7:09 PM CDT) Gram stain result Few WBC's [facility] DEPARTMENT OF Many Gram positive rods PATHOLOGY AND Comment: GENOMIC MEDICINE Specimen Information Specimen Source: Urine Specimen Site: Clean catch Specimen Urine Performing Organization Address [facility]/Zipcode Phone Number [facility] DEPARTMENT OF [address] [place] [address] PATHOLOGY AND GENOMIC MEDICINE * Urine culture (02/16/2018 7:09 PM CDT) Urine culture isolate Mixed Gram positive radhika [facility] DEPARTMENT OF <10-1 cfu/ml PATHOLOGY AND (A) GENOMIC MEDICINE Comment: Specimen Information Specimen Source: Urine Specimen Site: Clean catch Specimen Urine Performing Organization Address [facility] Phone Number [facility] DEPARTMENT OF [address] [place] [address] PATHOLOGY AND GENOMIC MEDICINE after 01/31/2018 Insurance Payer Benefit Subscriber ID Type Phone Address Plan / Group AETNA AETNA PPO xxxxxxxxxx PPO OPEN CHOICE (Work) Advance Directives Patient has advance care planning documents on file. For more information, bee gamble contact: Terry Ayers [address] [place] [address]
--- NOTE | 2019-02-01 22:04 | NUR ---
NOT IN WR
== END 2019-02-01 22:04 | disposition left against medical advice (07) ==
LOC: ER 20:21
DX: R11.10 Vomiting, unspecified (principal)

== ENCOUNTER 2019-02-02 05:47 | Inpatient (IN) | payer OTHER ==
[~2019-02-02] VITALS: Ht 157.5 cm; Wt 81.6 kg
[~2019-02-02 05:47] MED LIST changes: +MAGNESIUM SULF 1GRAM/DEXTROSE 100 ML IV SCH
--- OUTSIDE RECORDS SUMMARY | 2019-02-02 05:50 | XMS REPORT | Clinical Summary ---
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 Phone Dileep Carballo MD PCP [...] 02/16/2018 Emergency Emergency Medicine - 02/17/2018 after 02/01/2018 Social History Date Tobacco Use Types Packs/Day [...] Taken Vital Sign Reading 12/05/2018 8:56 PM [facility] Blood Pressure 150/89 12/05/2018 8:56 PM [facility] Pulse 79 12/05/2018 8:56 PM [facility] Temperature 36.5 C (97.7 F) 12/05/2018 8:56 PM [facility] Respiratory Rate 16 12/05/2018 8:56 PM [facility] Oxygen Saturation 98% - Inhaled Oxygen - Concentration 12/05/2018 6:25 PM [facility] Weight 83.5 kg (184 lb) 12/05/2018 6:25 PM [facility] Height 157.5 cm (5' 2") 12/05/2018 6:25 PM [facility] Body Mass Index 33.65 Plan of Treatment Health Maintenance Due Date Last Done Comments CERVICAL CANCER SCREENING 1995 INFLUENZA VACCINE 05/31/2019 Procedures Comments Procedure Name Priority Date/Time Associated Diagnosis CT ABDOMEN PELVIS WO STAT 12/05/2018 CONTRAST 7:17 PM [facility] XR CHEST 1 VW PORTABLE STAT 12/05/2018 7:10 PM [facility] HCG QUALITATIVE, URINE STAT 12/05/2018 SCREEN 7:00 PM [facility] URINALYSIS SCREEN AND STAT 12/05/2018 MICROSCOPY, WITH REFLEX 7:00 PM [facility] TO CULTURE TROPONIN STAT 12/05/2018 6:50 PM [facility] ESTIMATED GFR STAT 12/05/2018 6:50 PM [facility] LIPASE LEVEL STAT 12/05/2018 6:50 PM [facility] AMYLASE LEVEL STAT 12/05/2018 6:50 PM [facility] COMPREHENSIVE METABOLIC STAT 12/05/2018 PANEL 6:50 PM [facility] HC COMPLETE BLD COUNT STAT 12/05/2018 W/AUTO DIFF 6:50 PM [facility] ECG ED PRELIMINARY Routine 12/05/2018 INTERPRETATION 6:28 PM [facility] ECG 12-LEAD Routine 12/05/2018 6:21 PM [facility] ECG ED PRELIMINARY Routine 11/28/2018 INTERPRETATION 9:33 PM [facility] ECG 12-LEAD STAT 11/28/2018 8:58 PM [facility] ESTIMATED GFR STAT 11/28/2018 7:52 PM [facility] TROPONIN STAT 11/28/2018 7:52 PM [facility] CREATINE KINASE, TOTAL STAT 11/28/2018 (CPK) 7:52 PM [facility] LIPASE LEVEL STAT 11/28/2018 7:52 PM [facility] COMPREHENSIVE METABOLIC STAT 11/28/2018 PANEL 7:52 PM [facility] PARTIAL THROMBOPLASTIN STAT 11/28/2018 TIME (PTT) 7:52 PM [facility] PROTHROMBIN TIME WITH INR STAT 11/28/2018 7:52 PM [facility] HC COMPLETE BLD COUNT STAT 11/28/2018 W/AUTO DIFF 7:52 PM [facility] URINALYSIS SCREEN AND STAT 11/28/2018 MICROSCOPY, WITH REFLEX 7:45 PM [facility] TO CULTURE CT ABDOMEN PELVIS WO STAT 11/28/2018 CONTRAST 7:35 PM [facility] XR CHEST 2 VW STAT 11/28/2018 7:19 PM [facility] ZZESTIMATED GFR STAT 02/16/2018 9:38 PM CDT COMPREHENSIVE METABOLIC STAT 02/16/2018 PANEL 9:38 PM CDT HC COMPLETE BLD COUNT STAT 02/16/2018 W/AUTO DIFF 9:[address] RENAL STONE PROTOCOL STAT 02/16/2018 9:27 PM CDT URINALYSIS SCREEN AND STAT 02/16/2018 MICROSCOPY, WITH REFLEX 7:09 PM CDT TO CULTURE URINE CULTURE STAT 02/16/2018 7:09 PM CDT GRAM STAIN STAT 02/16/2018 7:09 PM CDT after 02/01/2018 Results * CT Abdomen Pelvis Wo Contrast (12/05/2018 7:17 PM [facility]) Only the most recent of 2 results [...] IMPRESSION: No acute abdominal or pelvic pathology. [facility]-[id number] Procedure Note [facility], Radiology Results Incoming - 12/05/2018 7:25 PM [facility] EXAMINATION: CT ABDOMEN PELVIS WO CONTRAST CLINICAL [...] IMPRESSION: No acute abdominal or pelvic pathology. [facility]-[id number] Performing Organization Address [facility] [place] Phone Number [facility] [address] [place] [address] * XR Chest 1 Vw Portable (12/05/2018 7:10 PM [facility]) Narrative Performed At EXAMINATION:XR CHEST 1 VW PORTABLE [facility] CLINICAL HISTORY:Shortness of breath TECHNIQUE:XR CHEST 1 VW PORTABLE COMPARISON:Chest radiograph dated 11/28/2018 FINDINGS: Lines/tubes:None. Heart and mediastinum:Unremarkable Lungs:There is minimal atelectasis/scarring at the lung bases.There is no focal consolidation. There is no evidence of pulmonary edema. Pleura:There is no pleural effusion. There is no pneumothorax. Bones and Soft Tissues:Unremarkable. IMPRESSION: No acute cardiopulmonary abnormality. [facility]-[id number] Procedure Note Hm Interface, Radiology Results Incoming - 12/05/2018 7:21 PM [facility] EXAMINATION: XR CHEST 1 VW PORTABLE CLINICAL [...] Tissues: Unremarkable. IMPRESSION: No acute cardiopulmonary abnormality. [facility]-[id number] Performing Organization Address [facility] [place] Phone Number [facility] [address] [place] [address] * Urinalysis screen and microscopy, with reflex to culture (12/05/2018 7:00 PM [facility]) Only the most recent of 3 results within the time period is included. Specimen site Clean catch [facility] Color, UA Straw [facility] Appearance, UA Clear [facility] Specific gravity, UA 1.008 1.001 - 1.035 [facility] pH, UA 5.0 5.0 - 8.5 [facility] Protein, UA Negative Negative [facility] Glucose, UA Negative Negative [facility] Ketones, UA Negative Negative [facility] Bilirubin, UA Negative Negative [facility] Blood, UA Negative Negative [facility] Nitrite, UA Negative Negative [facility] Urobilinogen, UA Negative <2.0 [facility] Leukocyte esterase, UA Negative Negative [facility] Epithelial cells, UA Few /HPF [facility] Round epithelial cells, Few 0 - 1 /HPF [facility] WBC, UA 0-5 0 - 4 /HPF [facility] RBC, UA 0-5 0 - 5 /HPF [facility] Bacteria, UA Trace None seen [facility] Yeast, UA None seen [facility] Yeast with pseudohyphae, None seen [facility] Specimen Urine Performing Organization Address [facility] [place] Phone Number [address] [place] [address] PATHOLOGY AND GENOMIC MEDICINE [address] * hCG qualitative, urine screen (12/05/2018 7:00 PM [facility]) hCG qualitative, urine Negative Negative [facility] Comment: [facility] The manufacturers stated sensitivity of HcG test for serum is >/=10 mIU/ml and urine is >/=20mIU/ml. Specimen Urine Performing Organization Address [facility] [place] Phone Number [address] [place] [address] PATHOLOGY AND GENOMIC MEDICINE [address] * Estimated GFR (12/05/2018 6:50 PM [facility]) Only the most recent of 2 results within the time period is included. Estimated GFR >=90 mL/min/1.73 m2 [facility] Comment: [facility] CatergoryUnitsInte rpretation G1 >=90 Normal or high G2 60-89Mildly decreased [id number] Mildly to moderately decreased [id number] Moderately to severely decreased G4 15-29Severely decreased G5 <15Kidney failure The eGFR was calculated using the Chronic Kidney Disease Epidemiology Collaboration (CKD-EPI) equation. Interpretation is based on recommendations of the National Kidney Foundation-Kidney Disease Outcomes Quality Initiative (NKF-KDOQI) published in 2014. Specimen Plasma specimen Performing Organization Address City/[facility] [place] Phone Number [address] [place] [address] PATHOLOGY AND GENOMIC MEDICINE [address] * Troponin (12/05/2018 6:50 PM [facility]) Only the most recent of 2 results within the time period is included. Troponin <0.300 0.000 - 0.300 ng/mL [facility] Comment: [facility] 0.30 - 1.49 ng/mlMay indicate increased risk of acute coronary syndrome. >=1.5 ng/ml Consistent with acute myocardial infarction. The diagnostic value of a single normal or non-diagnostic result is questionable.Serial samples at 2-6 hour intervals are required to rule out acute myocardial injury. Specimen Plasma specimen Performing Organization Address [facility] [place] Phone Number [address] [place] [address] PATHOLOGY AND GENOMIC MEDICINE [address] * CBC with platelet and differential (12/05/2018 6:50 PM [facility]) Only the most recent of 3 results within the time period is included. WBC 10.70 4.50 - 11.00 k/uL [facility] RBC 4.19 (L) 4.20 - 5.50 m/uL [facility] HGB 12.9 12.0 - 16.0 g/dL [facility] HCT 39.0 37.0 - 47.0 % [facility] MCV 93.1 82.0 - 100.0 fL [facility] MCH 30.8 27.0 - 34.0 pg [facility] MCHC 33.1 31.0 - 37.0 g/dL [facility] RDW - SD 43.0 37.0 - 55.0 fL [facility] MPV 12.0 8.8 - 13.2 fL [facility] Platelet count 166 150 - 400 k/uL [facility] Nucleated RBC 0.00 /100 WBC [facility] Neutrophils 47.0 39.0 - 69.0 % [facility] Lymphocytes 46.9 (H) 25.0 - 45.0 % [facility] Monocytes 4.4 0.0 - 10.0 % [facility] Eosinophils 0.9 0.0 - 5.0 % [facility] Basophils 0.4 0.0 - 1.0 % [facility] Specimen Blood Performing Organization Address [facility] Phone Number [address] [place] [address] PATHOLOGY AND GENOMIC MEDICINE [address] * Lipase level (12/05/2018 6:50 PM [facility]) Only the most recent of 2 results within the time period is included. Lipase 41 13 - 60 U/L [facility] Specimen Plasma specimen Performing Organization Address [facility] Phone Number [address] [place] [address] PATHOLOGY AND GENOMIC MEDICINE [address] * Amylase level (12/05/2018 6:50 PM [facility]) Amylase 52 13 - 73 U/L [facility] Specimen Plasma specimen Performing Organization Address [facility] Phone Number [address] [place] [address] PATHOLOGY AND GENOMIC MEDICINE [address] * Comprehensive metabolic panel (12/05/2018 6:50 PM [facility]) Only the most recent of 3 results within the time period is included. Sodium 139 135 - 148 mEq/L [facility] Potassium 3.8 3.5 - 5.0 mEq/L [facility] Chloride 98 98 - 112 mEq/L [facility] CO2 23 (L) 24 - 31 mEq/L [facility] Anion gap 18@ANIO (H) 7 - 15 mEq/L [facility] BUN 9 6 - 20 mg/dL [facility] Creatinine 0.60 0.50 - 0.90 mg/dL [facility] Glucose 232 (H) 65 - 99 mg/dL [facility] Calcium 10.0 8.3 - 10.2 mg/dL [facility] Protein 8.0 6.3 - 8.3 g/dL [facility] Comment: [facility] 4.6-7.0 g/dL 1 week 4.4-7.6 g/dL 7 months-1year 5.1-7.3 g/dL 1-2 years5.6-7 .5 g/dL >3 years6.0-8 .0 g/dL 18-150 6.3-8.3 g/dL Albumin 4.8 3.5 - 5.0 g/dL [facility] A/G ratio 1.5 0.7 - 3.8 [facility] Alkaline phosphatase 97 35 - 104 U/L [facility] AST 48 (H) 10 - 35 U/L [facility] ALT 61 (H) 5 - 50 U/L [facility] Total bilirubin 0.4 0.0 - 1.2 mg/dL [facility] Specimen Plasma specimen Performing Organization Address City/State/Zipcode Phone Number [facility] [place] [id number] [place] [address] [place] [address] PATHOLOGY AND GENOMIC MEDICINE [facility] [id number] [place] [address] * ECG ED Preliminary Interpretation - Not an Order (12/05/2018 6:28 PM [facility]) Only the most recent of 2 results within the time period is included. Narrative Performed At Juan Yee MD 12/05/20189:03 PM ECG ED Preliminary Interpretation - Not an Order Performed by: Juan Yee MD Authorized by: Juan Yee MD ECG reviewed by ED Physician in the absence of a fx artist: yes Interpretation: Interpretation: normal Rate: ECG rate:83 ECG rate assessment: normal Rhythm: Rhythm: sinus rhythm Ectopy: Ectopy: none QRS: QRS axis:Normal QRS intervals:Normal Conduction: Conduction: normal ST segments: ST segments:Normal T waves: T waves: normal * ECG 12 lead (12/05/2018 6:21 PM [facility]) Only the most recent of 2 results within the time period is included. Ventricular rate 83 [facility] Atrial rate 83 [facility] GA interval 174 [facility] QRSD interval 72 [facility] QT interval 356 [facility] QTC interval 418 [facility] P axis 1 18 [facility] QRS axis 1 26 [facility] T wave axis 41 [facility] EKG impression Normal sinus rhythm-Normal [facility] MUSE ECG-In automated comparison with ECG of 28-NOV-2018 20:58,-No significant change was found- Narrative Performed At Performing Organization Address City/[facility] Phone Number [facility] [address] [place] [address] * Partial thromboplastin time, activated (11/28/2018 7:52 PM [facility]) PTT 32.9 23.0 - 36.0 sec [facility] Comment: [facility] PTT therapeutic range for unfractionated heparin is 61.0-112.0 seconds which corresponds to Anti-Xa 0.3-0.7 U/ml. Specimen Blood Performing Organization Address City/[facility]/Zipcode Phone [place] [address] [place] [address] PATHOLOGY AND GENOMIC MEDICINE [facility] [address] [place] [address] [facility] * Prothrombin time with INR (11/28/2018 7:52 PM [facility]) Prothrombin time 12.3 11.5 - 14.5 sec [facility] INR 0.9 [facility] Comment: [facility] The International Normalized Ratio (INR) is a therapeutic monitoring tool for patients who are stable on oral anticoagulant therapy. An INR of 2.0-3.0 is suggested for deep vein thrombosis/pulmonary embolism. Specimen Blood Performing Organization Address [facility]/Zipcode Phone Number [address] [place] [address] PATHOLOGY AND GENOMIC MEDICINE [address] * Creatine kinase, total (CPK) (11/28/2018 7:52 PM [facility]) Creatine kinase 161 26 - 192 U/L [facility] Specimen Plasma specimen Performing Organization Address [facility] Phone Number [address] [place] [address] PATHOLOGY AND GENOMIC MEDICINE [address] * XR Chest 2 Vw (11/28/2018 7:19 PM [facility]) Narrative Performed At TWO VIEW CHEST, 11/28/2018 [facility] Clinical history:Epigastric pain Technique: PA and lateral views chest. Comparison: None DISCUSSION: The lungs are clear and symmetrically inflated. No pleural effusions. Cardiac size and mediastinal contour are normal. Pulmonary vasculature is normal.The skeleton is grossly intact. IMPRESSION: No acute abnormality. Procedure Note Interface, Radiology Results Incoming - 11/28/2018 7:27 PM [facility] TWO VIEW CHEST, 11/28/2018 Clinical history: Epigastric pain Technique: PA and lateral views chest. Comparison: None DISCUSSION: The lungs are clear and symmetrically inflated. No pleural effusions. Cardiac size and mediastinal contour are normal. Pulmonary vasculature is normal. The skeleton is grossly intact. IMPRESSION: No acute abnormality. Performing Organization Address City/[facility]/Zipcode Phone Number [facility] [address] [place] [address] * Estimated GFR (02/16/2018 9:38 PM CDT) GFR Non Af Amer >90 mL/min/1.73 m2 [facility] DEPARTMENT OF PATHOLOGY AND GENOMIC MEDICINE GFR Af Amer >90 mL/min/1.73 m2 [facility] DEPARTMENT OF Comment: PATHOLOGY AND [...] Address City/State/Zipcode [place] [address] [place] [address] PATHOLOGY AND GENOMIC MEDICINE * CT Renal [...] abnormality identified in the abdomen or pelvis. [facility]-[id number] Procedure Note Interface, Radiology Results [facility] - 02/16/2018 9:43 PM CDT Examination: [...] abnormality identified in the abdomen or pelvis. [facility]-[id number] Performing Organization Address City/[facility]/Zipcode Phone Number [facility] [address] [place] [id number] * Gram stain (02/16/2018 7:09 PM CDT) Gram stain result Few WBC's [facility] DEPARTMENT OF Many Gram positive rods PATHOLOGY AND Comment: GENOMIC MEDICINE Specimen Information Specimen Source: Urine Specimen Site: Clean catch Specimen Urine Performing Organization Address [facility]/Zipcode Phone Number [facility] DEPARTMENT OF [address] [place] [address] PATHOLOGY AND GENOMIC MEDICINE * Urine culture (02/16/2018 7:09 PM CDT) Urine culture isolate Mixed Gram positive radhika [facility] DEPARTMENT OF <10-1 cfu/ml PATHOLOGY AND (A) GENOMIC MEDICINE Comment: Specimen Information Specimen Source: Urine Specimen Site: Clean catch Specimen Urine Performing Organization Address [facility] Phone Number [facility] DEPARTMENT OF [address] [place] [address] PATHOLOGY AND GENOMIC MEDICINE after 02/01/2018 Insurance Payer Benefit Subscriber ID Type Phone Address Plan / Group AETNA AETNA PPO xxxxxxxxxx PPO OPEN CHOICE (Work) Advance Directives Patient has advance care planning documents on file. For more information, bee gamble contact: Terry Ayers [address] [place] [address]
[2019-02-02] MEDS ORDERED: ONDANSETRON HCL INJ 2MG/ML 2ML 2 MG/ML VIAL IV STA (06:44)
[2019-02-02] MEDS ORDERED: SODIUM CHLORIDE 0.9% 1000ML 1,000 ML IV SCH (06:45)
[2019-02-02] MEDS ORDERED: POTASSIUM CHL 40 MEQ in SODIUM CHLORIDE 0.9% 250ML 230 ML IV ONE (07:30)
--- NOTE | 2019-02-02 07:38 | NUR ---
NOTIFIED OF POT. 10 MEQ ONLY IN [place] TO GIVE AND ADMINISTER ORDER OF 40MEQ ONCE ARRIVED TO MAIN [facility].
[2019-02-02] MEDS ORDERED: MORPHINE SULFATE 2 MG/ML SYR 1ML IV PRN (07:45)
[2019-02-02] MEDS ORDERED: POTASSIUM CHLORIDE 10MEQ/100ML 100 ML IV ONE ×2 (07:45→14:15)
--- OUTSIDE RECORDS SUMMARY | 2019-02-02 07:56 | XMS REPORT | Clinical Summary ---
Author Author [facility] Organization [facility] Address Unknown Phone Unavailable Care Team Providers Care Per Diem Rn Name Role Phone Dileep Carballo MD PCP [...] Taken Vital Sign Reading 12/05/2018 8:56 PM SPEECH AND LANGUAGE ASSISTANT Blood Pressure 150/89 12/05/2018 8:56 PM SPEECH AND LANGUAGE ASSISTANT Pulse 79 12/05/2018 8:56 PM SPEECH AND LANGUAGE ASSISTANT Temperature 36.5 C (97.7 F) 12/05/2018 8:56 PM SPEECH AND LANGUAGE ASSISTANT Respiratory Rate 16 12/05/2018 8:56 PM SPEECH AND LANGUAGE ASSISTANT Oxygen Saturation 98% - Inhaled Oxygen - Concentration 12/05/2018 6:25 PM SPEECH AND LANGUAGE ASSISTANT Weight 83.5 kg (184 lb) 12/05/2018 6:25 PM SPEECH AND LANGUAGE ASSISTANT Height 157.5 cm (5' 2") 12/05/2018 6:25 PM SPEECH AND LANGUAGE ASSISTANT Body Mass Index 33.65 Plan of Treatment Health Maintenance Due Date Last Done Comments CERVICAL CANCER SCREENING 1995 INFLUENZA VACCINE 05/31/2019 Procedures Comments Procedure Name Priority Date/Time Associated Diagnosis CT ABDOMEN PELVIS WO STAT 12/05/2018 CONTRAST 7:17 PM SPEECH AND LANGUAGE ASSISTANT XR CHEST 1 VW PORTABLE STAT 12/05/2018 7:10 PM SPEECH AND LANGUAGE ASSISTANT HCG QUALITATIVE, URINE STAT 12/05/2018 SCREEN 7:00 PM SPEECH AND LANGUAGE ASSISTANT URINALYSIS SCREEN AND STAT 12/05/2018 MICROSCOPY, WITH REFLEX 7:00 PM SPEECH AND LANGUAGE ASSISTANT TO CULTURE TROPONIN STAT 12/05/2018 6:50 PM SPEECH AND LANGUAGE ASSISTANT ESTIMATED GFR STAT 12/05/2018 6:50 PM SPEECH AND LANGUAGE ASSISTANT LIPASE LEVEL STAT 12/05/2018 6:50 PM SPEECH AND LANGUAGE ASSISTANT AMYLASE LEVEL STAT 12/05/2018 6:50 PM SPEECH AND LANGUAGE ASSISTANT COMPREHENSIVE METABOLIC STAT 12/05/2018 PANEL 6:50 PM SPEECH AND LANGUAGE ASSISTANT HC COMPLETE BLD COUNT STAT 12/05/2018 W/AUTO DIFF 6:50 PM SPEECH AND LANGUAGE ASSISTANT ECG ED PRELIMINARY Routine 12/05/2018 INTERPRETATION 6:28 PM SPEECH AND LANGUAGE ASSISTANT ECG 12-LEAD Routine 12/05/2018 6:21 PM SPEECH AND LANGUAGE ASSISTANT ECG ED PRELIMINARY Routine 11/28/2018 INTERPRETATION 9:33 PM SPEECH AND LANGUAGE ASSISTANT ECG 12-LEAD STAT 11/28/2018 8:58 PM SPEECH AND LANGUAGE ASSISTANT ESTIMATED GFR STAT 11/28/2018 7:52 PM SPEECH AND LANGUAGE ASSISTANT TROPONIN STAT 11/28/2018 7:52 PM SPEECH AND LANGUAGE ASSISTANT CREATINE KINASE, TOTAL STAT 11/28/2018 (CPK) 7:52 PM SPEECH AND LANGUAGE ASSISTANT LIPASE LEVEL STAT 11/28/2018 7:52 PM SPEECH AND LANGUAGE ASSISTANT COMPREHENSIVE METABOLIC STAT 11/28/2018 PANEL 7:52 PM SPEECH AND LANGUAGE ASSISTANT PARTIAL THROMBOPLASTIN STAT 11/28/2018 TIME (PTT) 7:52 PM SPEECH AND LANGUAGE ASSISTANT PROTHROMBIN TIME WITH INR STAT 11/28/2018 7:52 PM SPEECH AND LANGUAGE ASSISTANT HC COMPLETE BLD COUNT STAT 11/28/2018 W/AUTO DIFF 7:52 PM SPEECH AND LANGUAGE ASSISTANT URINALYSIS SCREEN AND STAT 11/28/2018 MICROSCOPY, WITH REFLEX 7:45 PM SPEECH AND LANGUAGE ASSISTANT TO CULTURE CT ABDOMEN PELVIS WO STAT 11/28/2018 CONTRAST 7:35 PM SPEECH AND LANGUAGE ASSISTANT XR CHEST 2 VW STAT 11/28/2018 7:19 PM SPEECH AND LANGUAGE ASSISTANT ZZESTIMATED GFR STAT 02/16/2018 9:38 PM CDT [...] Abdomen Pelvis Wo Contrast (12/05/2018 7:17 PM SPEECH AND LANGUAGE ASSISTANT) Only the most recent of 2 results [...] IMPRESSION: No acute abdominal or pelvic pathology. [facility]-[id number] Procedure Note [facility], Radiology Results Incoming - 12/05/2018 7:25 PM SPEECH AND LANGUAGE ASSISTANT EXAMINATION: CT ABDOMEN PELVIS WO CONTRAST CLINICAL [...] IMPRESSION: No acute abdominal or pelvic pathology. [facility]-[id number] Performing Organization Address [facility] Phone Number [facility] [address] [place] [address] * XR Chest 1 Vw Portable (12/05/2018 7:10 PM SPEECH AND LANGUAGE ASSISTANT) Narrative Performed At EXAMINATION:XR CHEST 1 VW PORTABLE [facility] CLINICAL HISTORY:Shortness of breath TECHNIQUE:XR CHEST 1 VW PORTABLE COMPARISON:Chest radiograph dated 11/28/2018 FINDINGS: Lines/tubes:None. Heart and mediastinum:Unremarkable Lungs:There is minimal atelectasis/scarring at the lung bases.There is no focal consolidation. There is no evidence of pulmonary edema. Pleura:There is no pleural effusion. There is no pneumothorax. Bones and Soft Tissues:Unremarkable. IMPRESSION: No acute cardiopulmonary abnormality. [facility]-[id number] Procedure Note Hm Interface, Radiology Results Incoming - 12/05/2018 7:21 PM SPEECH AND LANGUAGE ASSISTANT EXAMINATION: XR CHEST 1 VW PORTABLE CLINICAL [...] Tissues: Unremarkable. IMPRESSION: No acute cardiopulmonary abnormality. [facility]-[id number] Performing Organization Address [facility] Phone Number [facility] [address] [place] [address] * Urinalysis screen and microscopy, with reflex to culture (12/05/2018 7:00 PM SPEECH AND LANGUAGE ASSISTANT) Only the most recent of 3 results within the time period is included. Specimen site Clean catch [facility] Color, UA Straw [facility] Appearance, UA Clear [facility] Specific gravity, UA 1.008 1.001 - 1.035 [facility] pH, UA 5.0 5.0 - 8.5 [facility] Protein, UA Negative Negative [facility] Glucose, UA Negative Negative [facility] Ketones, UA Negative Negative [facility] Bilirubin, UA Negative Negative [facility] Blood, UA Negative Negative [facility] Nitrite, UA Negative Negative [facility] Urobilinogen, UA Negative <2.0 [facility] Leukocyte esterase, UA Negative Negative [facility] Epithelial cells, UA Few /HPF [facility] Round epithelial cells, Few 0 - 1 /HPF [facility] WBC, UA 0-5 0 - 4 /HPF [facility] RBC, UA 0-5 0 - 5 /HPF [facility] Bacteria, UA Trace None seen [facility] Yeast, UA None seen [facility] Yeast with pseudohyphae, None seen [facility] Specimen Urine Performing Organization Address [facility] Phone Number [address] [place] [address] PATHOLOGY AND GENOMIC MEDICINE [address] * hCG qualitative, urine screen (12/05/2018 7:00 PM SPEECH AND LANGUAGE ASSISTANT) hCG qualitative, urine Negative Negative [facility] Comment: [facility] The manufacturers stated sensitivity of HcG test for serum is >/=10 mIU/ml and urine is >/=20mIU/ml. Specimen Urine Performing Organization Address [facility] Phone Number [address] [place] [address] PATHOLOGY AND GENOMIC MEDICINE [address] * Estimated GFR (12/05/2018 6:50 PM SPEECH AND LANGUAGE ASSISTANT) Only the most recent of 2 results within the time period is included. Estimated GFR >=90 mL/min/1.73 m2 [facility] Comment: [facility] CatergoryUnitsInte rpretation G1 >=90 Normal or high G2 60-89Mildly decreased [id number] Mildly to moderately decreased [id number] Moderately to severely decreased G4 15-29Severely decreased G5 <15Kidney failure The eGFR was calculated using the Chronic Kidney Disease Epidemiology Collaboration (CKD-EPI) equation. Interpretation is based on recommendations of the National Kidney Foundation-Kidney Disease Outcomes Quality Initiative (NKF-KDOQI) published in 2014. Specimen Plasma specimen Performing Organization Address City/[facility] Phone Number [address] [place] [address] PATHOLOGY AND GENOMIC MEDICINE [address] * Troponin (12/05/2018 6:50 PM SPEECH AND LANGUAGE ASSISTANT) Only the most recent of 2 results within the time period is included. Troponin <0.300 0.000 - 0.300 ng/mL [facility] Comment: [facility] 0.30 - 1.49 ng/mlMay indicate increased risk of acute coronary syndrome. >=1.5 ng/ml Consistent with acute myocardial infarction. The diagnostic value of a single normal or non-diagnostic result is questionable.Serial samples at 2-6 hour intervals are required to rule out acute myocardial injury. Specimen Plasma specimen Performing Organization Address [facility] Phone Number [address] [place] [address] PATHOLOGY AND GENOMIC MEDICINE [address] * CBC with platelet and differential (12/05/2018 6:50 PM SPEECH AND LANGUAGE ASSISTANT) Only the most recent of 3 results within the time period is included. WBC 10.70 4.50 - 11.00 k/uL [facility] RBC 4.19 (L) 4.20 - 5.50 m/uL [facility] HGB 12.9 12.0 - 16.0 g/dL [facility] HCT 39.0 37.0 - 47.0 % [facility] MCV 93.1 82.0 - 100.0 fL [facility] MCH 30.8 27.0 - 34.0 pg [facility] MCHC 33.1 31.0 - 37.0 g/dL [facility] RDW - SD 43.0 37.0 - 55.0 fL [facility] MPV 12.0 8.8 - 13.2 fL [facility] Platelet count 166 150 - 400 k/uL [facility] Nucleated RBC 0.00 /100 WBC [facility] Neutrophils 47.0 39.0 - 69.0 % [facility] Lymphocytes 46.9 (H) 25.0 - 45.0 % [facility] Monocytes 4.4 0.0 - 10.0 % [facility] Eosinophils 0.9 0.0 - 5.0 % [facility] Basophils 0.4 0.0 - 1.0 % [facility] Specimen Blood Performing Organization Address [facility] Phone Number [address] [place] [address] PATHOLOGY AND GENOMIC MEDICINE [address] * Lipase level (12/05/2018 6:50 PM SPEECH AND LANGUAGE ASSISTANT) Only the most recent of 2 results within the time period is included. Lipase 41 13 - 60 U/L [facility] Specimen Plasma specimen Performing Organization Address [facility] Phone Number [address] [place] [address] PATHOLOGY AND GENOMIC MEDICINE [address] * Amylase level (12/05/2018 6:50 PM SPEECH AND LANGUAGE ASSISTANT) Amylase 52 13 - 73 U/L [facility] Specimen Plasma specimen Performing Organization Address [facility] Phone Number [address] [place] [address] PATHOLOGY AND GENOMIC MEDICINE [address] * Comprehensive metabolic panel (12/05/2018 6:50 PM SPEECH AND LANGUAGE ASSISTANT) Only the most recent of 3 results within the time period is included. Sodium 139 135 - 148 mEq/L [facility] Potassium 3.8 3.5 - 5.0 mEq/L [facility] Chloride 98 98 - 112 mEq/L [facility] CO2 23 (L) 24 - 31 mEq/L [facility] Anion gap 18@ANIO (H) 7 - 15 mEq/L [facility] BUN 9 6 - 20 mg/dL [facility] Creatinine 0.60 0.50 - 0.90 mg/dL [facility] Glucose 232 (H) 65 - 99 mg/dL [facility] Calcium 10.0 8.3 - 10.2 mg/dL [facility] Protein 8.0 6.3 - 8.3 g/dL [facility] Comment: [facility] 4.6-7.0 g/dL 1 week 4.4-7.6 g/dL 7 months-1year 5.1-7.3 g/dL 1-2 years5.6-7 .5 g/dL >3 years6.0-8 .0 g/dL 18-150 6.3-8.3 g/dL Albumin 4.8 3.5 - 5.0 g/dL [facility] A/G ratio 1.5 0.7 - 3.8 [facility] Alkaline phosphatase 97 35 - 104 U/L [facility] AST 48 (H) 10 - 35 U/L [facility] ALT 61 (H) 5 - 50 U/L [facility] Total bilirubin 0.4 0.0 - 1.2 mg/dL [facility] Specimen Plasma specimen Performing Organization Address City/State/Zipcode Phone Number [facility] [place] [id number] [place] [address] [place] [address] PATHOLOGY AND GENOMIC MEDICINE [facility] [id number] [place] [address] * ECG ED Preliminary Interpretation - Not an Order (12/05/2018 6:28 PM SPEECH AND LANGUAGE ASSISTANT) Only the most recent of 2 results within the time period is included. Narrative Performed At Juan Yee MD 12/05/20189:03 PM ECG ED Preliminary Interpretation - Not an Order Performed by: Juan Yee MD Authorized by: Juan Yee MD ECG reviewed by ED Physician in the absence of a global vp creative + content marketing: yes Interpretation: Interpretation: normal Rate: ECG rate:83 ECG rate assessment: normal Rhythm: Rhythm: sinus rhythm Ectopy: Ectopy: none QRS: QRS axis:Normal QRS intervals:Normal Conduction: Conduction: normal ST segments: ST segments:Normal T waves: T waves: normal * ECG 12 lead (12/05/2018 6:21 PM SPEECH AND LANGUAGE ASSISTANT) Only the most recent of 2 results within the time period is included. Ventricular rate 83 [facility] Atrial rate 83 [facility] NC interval 174 [facility] QRSD interval 72 [facility] QT interval 356 [facility] QTC interval 418 [facility] P axis 1 18 [facility] QRS axis 1 26 [facility] T wave axis 41 [facility] EKG impression Normal sinus rhythm-Normal [facility] MUSE ECG-In automated comparison with ECG of 28-NOV-2018 20:58,-No significant change was found- Narrative Performed At Performing Organization Address City/[facility] Phone Number [facility] [address] [place] [address] * Partial thromboplastin time, activated (11/28/2018 7:52 PM SPEECH AND LANGUAGE ASSISTANT) PTT 32.9 23.0 - 36.0 sec [facility] Comment: [facility] PTT therapeutic range for unfractionated heparin is 61.0-112.0 seconds which corresponds to Anti-Xa 0.3-0.7 U/ml. Specimen Blood Performing Organization Address City/[facility]/Zipcode [place] [address] [place] [address] PATHOLOGY AND GENOMIC MEDICINE [facility] [address] [place] [address] [facility] * Prothrombin time with INR (11/28/2018 7:52 PM SPEECH AND LANGUAGE ASSISTANT) Prothrombin time 12.3 11.5 - 14.5 sec [facility] INR 0.9 [facility] Comment: [facility] The International Normalized Ratio (INR) is a therapeutic monitoring tool for patients who are stable on oral anticoagulant therapy. An INR of 2.0-3.0 is suggested for deep vein thrombosis/pulmonary embolism. Specimen Blood Performing Organization Address [facility]/Zipcode Phone Number [address] [place] [address] PATHOLOGY AND GENOMIC MEDICINE [address] * Creatine kinase, total (CPK) (11/28/2018 7:52 PM SPEECH AND LANGUAGE ASSISTANT) Creatine kinase 161 26 - 192 U/L [facility] Specimen Plasma specimen Performing Organization Address [facility] Phone Number [address] [place] [address] PATHOLOGY AND GENOMIC MEDICINE [address] * XR Chest 2 Vw (11/28/2018 7:19 PM SPEECH AND LANGUAGE ASSISTANT) Narrative Performed At TWO [facility] CHEST, 11/28/2018 [facility] Clinical history:Epigastric pain Technique: PA and lateral views chest. Comparison: None DISCUSSION: The lungs are clear and symmetrically inflated. No pleural effusions. Cardiac size and mediastinal contour are normal. Pulmonary vasculature is normal.The skeleton is grossly intact. IMPRESSION: No acute abnormality. Procedure Note Interface, Radiology Results Incoming - 11/28/2018 7:27 PM SPEECH AND LANGUAGE ASSISTANT TWO VIEW CHEST, 11/28/2018 Clinical history: Epigastric pain Technique: PA and lateral views chest. Comparison: None DISCUSSION: The lungs are clear and symmetrically inflated. No pleural effusions. Cardiac size and mediastinal contour are normal. Pulmonary vasculature is normal. The skeleton is grossly intact. IMPRESSION: No acute abnormality. Performing Organization Address City/[facility]/Zipcode Phone Number [facility] [address] [place] [address] * Estimated GFR (02/16/2018 9:38 PM CDT) [...] Address City/State/Zipcode [place] Number [place] [address] [place] [address] PATHOLOGY AND GENOMIC MEDICINE * CT Renal [...] abnormality identified in the abdomen or pelvis. [facility]-[id number] Procedure Note Interface, Radiology Results [facility] - 02/16/2018 9:43 PM CDT Examination: [...] abnormality identified in the abdomen or pelvis. [facility]-[id number] Performing Organization Address City/[facility]/Zipcode Phone Number [facility] [address] [place] [id number] * Gram stain (02/16/2018 7:09 PM CDT) Gram stain result Few WBC's [facility] DEPARTMENT OF Many Gram positive rods PATHOLOGY AND Comment: GENOMIC MEDICINE Specimen Information Specimen Source: Urine Specimen Site: Clean catch Specimen Urine Performing Organization Address [facility]/Zipcode Phone Number [facility] DEPARTMENT OF [address] [place] [address] PATHOLOGY AND GENOMIC MEDICINE * Urine culture (02/16/2018 7:09 PM CDT) Urine culture isolate Mixed Gram positive radhika [facility] DEPARTMENT OF <10-1 cfu/ml PATHOLOGY AND (A) GENOMIC MEDICINE Comment: Specimen Information Specimen Source: Urine Specimen Site: Clean catch Specimen Urine Performing Organization Address [facility] Phone Number [facility] DEPARTMENT OF [address] [place] [address] PATHOLOGY AND GENOMIC MEDICINE after 02/01/2018 Insurance Payer Benefit Subscriber ID Type Phone Address Plan / Group AETNA AETNA PPO xxxxxxxxxx PPO OPEN CHOICE (Work) Advance Directives Patient has advance care planning documents on file. For more information, bee gamble contact: Terry Ayers [address] [place] [address]
--- OUTSIDE RECORDS SUMMARY | 2019-02-02 07:59 | XMS REPORT | Clinical Summary ---
Author Author [facility] Organization [facility] Address Unknown Phone Unavailable Care Team Providers Care Pathology Secretary Name Role Phone Dileep Carballo MD PCP [...] Taken Vital Sign Reading 12/05/2018 8:56 PM C[facility]CH OPERATOR Blood Pressure 150/89 12/05/2018 8:56 PM CENTER [facility]CH OPERATOR Pulse 79 12/05/2018 8:56 PM CENTER PUNCH OPERATOR Temperature 36.5 C (97.7 F) 12/05/2018 8:56 PM C[facility] OPERATOR Respiratory Rate 16 12/05/2018 8:56 PM CENTER [facility]UNCH OPERATOR Oxygen Saturation 98% - Inhaled Oxygen - Concentration 12/05/2018 6:25 PM CENTER P[facility]CH OPERATOR Weight 83.5 kg (184 lb) 12/05/2018 6:25 PM CENTER PUNCH OPERATOR Height 157.5 cm (5' 2") 12/05/2018 6:25 PM CENTER PUNCH OPERATOR Body Mass Index 33.65 Plan of Treatment Health Maintenance Due Date Last Done Comments CERVICAL CANCER SCREENING 1995 INFLUENZA VACCINE 05/31/2019 Procedures Comments Procedure Name Priority Date/Time Associated Diagnosis CT ABDOMEN PELVIS WO STAT 12/05/2018 CONTRAST 7:17 PM CENTER [facility] OPERATOR XR CHEST 1 VW PORTABLE STAT 12/05/2018 7:10 PM CENTER [facility]CH OPERATOR HCG QUALITATIVE, URINE STAT 12/05/2018 SCREEN 7:00 PM C[facility]CH OPERATOR URINALYSIS SCREEN AND STAT 12/05/2018 MICROSCOPY, WITH REFLEX 7:00 PM CENTER P[facility]CH OPERATOR TO CULTURE TROPONIN STAT 12/05/2018 6:50 PM CENTER PUNCH OPERATOR ESTIMATED GFR STAT 12/05/2018 6:50 PM CENTER PUNCH OPERATOR LIPASE LEVEL STAT 12/05/2018 6:50 PM CENTER PUNCH OPERATOR AMYLASE LEVEL STAT 12/05/2018 6:50 PM CENTER PUNCH OPERATOR COMPREHENSIVE METABOLIC STAT 12/05/2018 PANEL 6:50 PM CENTER P[facility]CH OPERATOR HC COMPLETE BLD COUNT STAT 12/05/2018 W/AUTO DIFF 6:50 PM CENTER PUNCH OPERATOR ECG ED PRELIMINARY Routine 12/05/2018 INTERPRETATION 6:28 PM CENTER PUNCH OPERATOR ECG 12-LEAD Routine 12/05/2018 6:21 PM CENTER PUNCH OPERATOR ECG ED PRELIMINARY Routine 11/28/2018 INTERPRETATION 9:33 PM CENTER PUNCH OPERATOR ECG 12-LEAD STAT 11/28/2018 8:58 PM CENTER PUNCH OPERATOR ESTIMATED GFR STAT 11/28/2018 7:52 PM CENTER PUNCH OPERATOR TROPONIN STAT 11/28/2018 7:52 PM CENTER PUNCH OPERATOR CREATINE KINASE, TOTAL STAT 11/28/2018 (CPK) 7:52 PM CENTER PUNCH OPERATOR LIPASE LEVEL STAT 11/28/2018 7:52 PM CENTER PUNCH OPERATOR COMPREHENSIVE METABOLIC STAT 11/28/2018 PANEL 7:52 PM CENTER PUNCH OPERATOR PARTIAL THROMBOPLASTIN STAT 11/28/2018 TIME (PTT) 7:52 PM CENTER PUNCH OPERATOR PROTHROMBIN TIME WITH INR STAT 11/28/2018 7:52 PM CENTER PUNCH OPERATOR HC COMPLETE BLD COUNT STAT 11/28/2018 W/AUTO DIFF 7:52 PM CENTER PUNCH OPERATOR URINALYSIS SCREEN AND STAT 11/28/2018 MICROSCOPY, WITH REFLEX 7:45 PM CENTER PUNCH OPERATOR TO CULTURE CT ABDOMEN PELVIS WO STAT 11/28/2018 CONTRAST 7:35 PM CENTER PUNCH OPERATOR XR CHEST 2 VW STAT 11/28/2018 7:19 PM CENTER PUNCH OPERATOR ZZESTIMATED GFR STAT 02/16/2018 9:38 PM CDT [...] Abdomen Pelvis Wo Contrast (12/05/2018 7:17 PM CENTER PUNCH OPERATOR) Only the most recent of 2 results [...] IMPRESSION: No acute abdominal or pelvic pathology. [facility]-[id number] Procedure Note [facility], Radiology Results Incoming - 12/05/2018 7:25 PM CENTER PUNCH OPERATOR EXAMINATION: CT ABDOMEN PELVIS WO CONTRAST CLINICAL [...] IMPRESSION: No acute abdominal or pelvic pathology. [facility]-[id number] Performing Organization Address [facility] Phone Number [facility] [address] [place] [address] * XR Chest 1 Vw Portable (12/05/2018 7:10 PM CENTER PUNCH OPERATOR) Narrative Performed At EXAMINATION:XR CHEST 1 VW PORTABLE [facility] CLINICAL HISTORY:Shortness of breath TECHNIQUE:XR CHEST 1 VW PORTABLE COMPARISON:Chest radiograph dated 11/28/2018 FINDINGS: Lines/tubes:None. Heart and mediastinum:Unremarkable Lungs:There is minimal atelectasis/scarring at the lung bases.There is no focal consolidation. There is no evidence of pulmonary edema. Pleura:There is no pleural effusion. There is no pneumothorax. Bones and Soft Tissues:Unremarkable. IMPRESSION: No acute cardiopulmonary abnormality. [facility]-[id number] Procedure Note Hm Interface, Radiology Results Incoming - 12/05/2018 7:21 PM CENTER PUNCH OPERATOR EXAMINATION: XR CHEST 1 VW PORTABLE CLINICAL [...] Tissues: Unremarkable. IMPRESSION: No acute cardiopulmonary abnormality. [facility]-[id number] Performing Organization Address [facility] Phone Number [facility] [address] [place] [address] * Urinalysis screen and microscopy, with reflex to culture (12/05/2018 7:00 PM CENTER PUNCH OPERATOR) Only the most recent of 3 results within the time period is included. Specimen site Clean catch [facility] Color, UA Straw [facility] Appearance, UA Clear [facility] Specific gravity, UA 1.008 1.001 - 1.035 [facility] pH, UA 5.0 5.0 - 8.5 [facility] Protein, UA Negative Negative [facility] Glucose, UA Negative Negative [facility] Ketones, UA Negative Negative [facility] Bilirubin, UA Negative Negative [facility] Blood, UA Negative Negative [facility] Nitrite, UA Negative Negative [facility] Urobilinogen, UA Negative <2.0 [facility] Leukocyte esterase, UA Negative Negative [facility] Epithelial cells, UA Few /HPF [facility] Round epithelial cells, Few 0 - 1 /HPF [facility] WBC, UA 0-5 0 - 4 /HPF [facility] RBC, UA 0-5 0 - 5 /HPF [facility] Bacteria, UA Trace None seen [facility] Yeast, UA None seen [facility] Yeast with pseudohyphae, None seen [facility] Specimen Urine Performing Organization Address [facility] Phone Number [address] [place] [address] PATHOLOGY AND GENOMIC MEDICINE [address] * hCG qualitative, urine screen (12/05/2018 7:00 PM CENTER PUNCH OPERATOR) hCG qualitative, urine Negative Negative [facility] Comment: [employer] The manufacturers stated sensitivity of HcG test for serum is >/=10 mIU/ml and urine is >/=20mIU/ml. Specimen Urine Performing Organization Address [facility] Phone Number [address] [place] [address] PATHOLOGY AND GENOMIC MEDICINE [address] * Estimated GFR (12/05/2018 6:50 PM CENTER PUNCH OPERATOR) Only the most recent of 2 results within the time period is included. Estimated GFR >=90 mL/min/1.73 m2 [facility] Comment: [employer] CatergoryUnitsInte rpretation G1 >=90 Normal or high G2 60-89Mildly decreased [id number] Mildly to moderately decreased G1p79-70 Moderately to severely decreased G4 15-29Severely decreased G5 <15Kidney failure The eGFR was calculated using the Chronic Kidney Disease Epidemiology Collaboration (CKD-EPI) equation. Interpretation is based on recommendations of the National Kidney Foundation-Kidney Disease Outcomes Quality Initiative (NKF-KDOQI) published in 2014. Specimen Plasma specimen Performing Organization Address City/[facility] Phone Number [address] [place] [address] PATHOLOGY AND GENOMIC MEDICINE [address] * Troponin (12/05/2018 6:50 PM CENTER PUNCH OPERATOR) Only the most recent of 2 results within the time period is included. Troponin <0.300 0.000 - 0.300 ng/mL [facility] Comment: [employer] 0.30 - 1.49 ng/mlMay indicate increased risk of acute coronary syndrome. >=1.5 ng/ml Consistent with acute myocardial infarction. The diagnostic value of a single normal or non-diagnostic result is questionable.Serial samples at 2-6 hour intervals are required to rule out acute myocardial injury. Specimen Plasma specimen Performing Organization Address [facility] Phone Number [address] [place] [address] PATHOLOGY AND GENOMIC MEDICINE [address] * CBC with platelet and differential (12/05/2018 6:50 PM CENTER PUNCH OPERATOR) Only the most recent of 3 results within the time period is included. WBC 10.70 4.50 - 11.00 k/uL [facility] RBC 4.19 (L) 4.20 - 5.50 m/uL [facility] HGB 12.9 12.0 - 16.0 g/dL [facility] HCT 39.0 37.0 - 47.0 % [facility] MCV 93.1 82.0 - 100.0 fL [facility] MCH 30.8 27.0 - 34.0 pg [facility] MCHC 33.1 31.0 - 37.0 g/dL [facility] RDW - SD 43.0 37.0 - 55.0 fL [facility] MPV 12.0 8.8 - 13.2 fL [facility] Platelet count 166 150 - 400 k/uL [facility] Nucleated RBC 0.00 /100 WBC [facility] Neutrophils 47.0 39.0 - 69.0 % [facility] Lymphocytes 46.9 (H) 25.0 - 45.0 % [facility] Monocytes 4.4 0.0 - 10.0 % [facility] Eosinophils 0.9 0.0 - 5.0 % [facility] Basophils 0.4 0.0 - 1.0 % [facility] Specimen Blood Performing Organization Address [facility] Phone Number [address] [place] [address] PATHOLOGY AND GENOMIC MEDICINE [address] * Lipase level (12/05/2018 6:50 PM CENTER PUNCH OPERATOR) Only the most recent of 2 results within the time period is included. Lipase 41 13 - 60 U/L [facility] Specimen Plasma specimen Performing Organization Address [facility] Phone Number [address] [place] [address] PATHOLOGY AND GENOMIC MEDICINE [address] * Amylase level (12/05/2018 6:50 PM CENTER PUNCH OPERATOR) Amylase 52 13 - 73 U/L [facility] Specimen Plasma specimen Performing Organization Address [facility] Phone Number [address] [place] [address] PATHOLOGY AND GENOMIC MEDICINE [address] * Comprehensive metabolic panel (12/05/2018 6:50 PM CENTER PUNCH OPERATOR) Only the most recent of 3 results within the time period is included. Sodium 139 135 - 148 mEq/L [facility] Potassium 3.8 3.5 - 5.0 mEq/L [facility] Chloride 98 98 - 112 mEq/L [facility] CO2 23 (L) 24 - 31 mEq/L [facility] Anion gap 18@ANIO (H) 7 - 15 mEq/L [facility] BUN 9 6 - 20 mg/dL [facility] Creatinine 0.60 0.50 - 0.90 mg/dL [facility] Glucose 232 (H) 65 - 99 mg/dL [facility] Calcium 10.0 8.3 - 10.2 mg/dL [facility] Protein 8.0 6.3 - 8.3 g/dL [facility] Comment: [employer] 4.6-7.0 g/dL 1 week 4.4-7.6 g/dL 7 months-1year 5.1-7.3 g/dL 1-2 years5.6-7 .5 g/dL >3 years6.0-8 .0 g/dL 18-150 6.3-8.3 g/dL Albumin 4.8 3.5 - 5.0 g/dL [facility] A/G ratio 1.5 0.7 - 3.8 [facility] Alkaline phosphatase 97 35 - 104 U/L [facility] AST 48 (H) 10 - 35 U/L [facility] ALT 61 (H) 5 - 50 U/L [facility] Total bilirubin 0.4 0.0 - 1.2 mg/dL [facility] Specimen Plasma specimen Performing Organization Address City/State/Zipcode Phone Number [facility] [place] [id number] [place] [address] [place] [address] PATHOLOGY AND GENOMIC MEDICINE [facility] [id number] [place] [address] * ECG ED Preliminary Interpretation - Not an Order (12/05/2018 6:28 PM CENTER PUNCH OPERATOR) Only the most recent of 2 results within the time period is included. 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 Ventricular rate 83 [facility] Atrial rate 83 [facility] KS interval 174 [facility] QRSD interval 72 [facility] QT interval 356 [facility] QTC interval 418 [facility] P axis 1 18 [facility] QRS axis 1 26 [facility] T wave axis 41 [facility] EKG impression Normal sinus rhythm-Normal [facility] MUSE ECG-In automated comparison with ECG of 28-NOV-2018 20:58,-No significant change was found- Narrative Performed At Performing Organization Address City/[facility] Phone Number [facility] [address] [place] [address] * Partial thromboplastin time, activated (11/28/2018 7:52 PM CENTER PUNCH OPERATOR) PTT 32.9 23.0 - 36.0 sec [facility] Comment: [employer] PTT therapeutic range for unfractionated heparin is 61.0-112.0 seconds which corresponds to Anti-Xa 0.3-0.7 U/ml. Specimen Blood Performing Organization Address City/[facility]/Zipcode [place] [address] [place] [address] PATHOLOGY AND GENOMIC MEDICINE [facility] [address] [place] [address] [facility] * Prothrombin time with INR (11/28/2018 7:52 PM CENTER PUNCH OPERATOR) Prothrombin time 12.3 11.5 - 14.5 sec [facility] INR 0.9 [facility] Comment: [employer] The International Normalized Ratio (INR) is a therapeutic monitoring tool for patients who are stable on oral anticoagulant therapy. An INR of 2.0-3.0 is suggested for deep vein thrombosis/pulmonary embolism. Specimen Blood Performing Organization Address [facility]/Zipcode Phone Number [address] [place] [address] PATHOLOGY AND GENOMIC MEDICINE [address] * Creatine kinase, total (CPK) (11/28/2018 7:52 PM CENTER PUNCH OPERATOR) Creatine kinase 161 26 - 192 U/L [facility] Specimen Plasma specimen Performing Organization Address [facility] Phone Number [address] [place] [address] PATHOLOGY AND GENOMIC MEDICINE [address] * XR Chest 2 Vw (11/28/2018 7:19 PM CENTER PUNCH OPERATOR) Narrative Performed At [facility], 11/28/2018 [facility] Clinical history:Epigastric pain Technique: PA and lateral views chest. Comparison: None DISCUSSION: The lungs are clear and symmetrically inflated. No pleural effusions. Cardiac size and mediastinal contour are normal. Pulmonary vasculature is normal.The skeleton is grossly intact. IMPRESSION: No acute abnormality. Procedure Note Interface, Radiology Results Incoming - 11/28/2018 7:27 PM CENTER PUNCH OPERATOR [facility] CHEST, 11/28/2018 Clinical history: Epigastric pain Technique: PA and lateral views chest. Comparison: None DISCUSSION: The lungs are clear and symmetrically inflated. No pleural effusions. Cardiac size and mediastinal contour are normal. Pulmonary vasculature is normal. The skeleton is grossly intact. IMPRESSION: No acute abnormality. Performing Organization Address City/[facility]/Zipcode Phone Number [facility] [address] [place] [address] * Estimated GFR (02/16/2018 9:38 PM CDT) GFR Non Af Amer >90 mL/min/1.73 m2 [facility] DEPARTMENT OF PATHOLOGY AND GENOMIC MEDICINE GFR Af Amer >90 mL/min/1.73 m2 [facility] DEPARTMENT OF Comment: PATHOLOGY AND Chronic [...] Address City/State/Zipcode [place] [address] [place] [address] PATHOLOGY AND GENOMIC MEDICINE * CT Renal [...] abnormality identified in the abdomen or pelvis. [facility]-[id number] Procedure Note Interface, Radiology Results [facility] - 02/16/2018 9:43 PM CDT Examination: [...] abnormality identified in the abdomen or pelvis. [facility]-[id number] Performing Organization Address City/[facility]/Zipcode Phone Number [facility] [address] [place] [address] * Gram stain (02/16/2018 7:09 PM CDT) Gram stain result Few WBC's [facility] DEPARTMENT OF Many Gram positive rods PATHOLOGY AND Comment: GENOMIC MEDICINE Specimen Information Specimen Source: Urine Specimen Site: Clean catch Specimen Urine Performing Organization Address [facility]/Zipcode Phone Number [facility] DEPARTMENT OF [address] [place] [address] PATHOLOGY AND GENOMIC MEDICINE * Urine culture (02/16/2018 7:09 PM CDT) Urine culture isolate Mixed Gram positive radhika [facility] DEPARTMENT OF <10-1 cfu/ml PATHOLOGY AND (A) GENOMIC MEDICINE Comment: Specimen Information Specimen Source: Urine Specimen Site: Clean catch Specimen Urine Performing Organization Address [facility] Phone Number [facility] DEPARTMENT OF [address] [place] [address] PATHOLOGY AND GENOMIC MEDICINE after 02/01/2018 Insurance Payer Benefit Subscriber ID Type Phone Address Plan / Group AETNA AETNA PPO xxxxxxxxxx PPO OPEN CHOICE (Work) Advance Directives Patient has advance care planning documents on file. For more information, bee gamble contact: Terry Ayers [address] [place] [address]
[2019-02-02] MEDS: SODIUM CHLORIDE 0.9% 1000ML 1,000 ML IV SCH ×3 (08:00→23:44)
[2019-02-02] MEDS ORDERED: MORPHINE SULFATE 5 MG/ML VIAL IV ONE (08:00)
--- NOTE | 2019-02-02 08:25 | Diagnostic Imaging Report ---
EXAMINATION: CT of the abdomen and pelvis without contrast. TECHNIQUE: Spiral CT images of the abdomen and pelvis were performed from the lung bases to the lesser trochanters. No intravenous contrast was given per reported patient history of allergy to iodinated contrast media. Coronal and sagittal reformatted images were obtained. COMPARISON: CT abdomen and pelvis from an outside facility 01/11/2019 CLINICAL HISTORY:Nausea, vomiting, recent surgery DISCUSSION: ABSENCE OF INTRAVENOUS CONTRAST DECREASES SENSITIVITY FOR DETECTION OF FOCAL LESIONS AND VASCULAR PATHOLOGY. ABDOMEN/PELVIS: LOWER THORAX: Catheter by granuloma right lower lobe unchanged. Lung bases otherwise unremarkable. HEPATOBILIARY:Geographic hypoattenuation in the right lobe which may reflect focal steatosis. No additional focal hepatic lesion or intrahepatic biliary ductal dilatation. The gallbladder has been removed. SPLEEN: No splenomegaly. PANCREAS: No focal masses or ductal dilatation. ADRENALS: No adrenal nodules. KIDNEYS/URETERS: No hydronephrosis, stones, or solid mass lesions. PELVIC ORGANS/BLADDER: Urinary bladder is incompletely distended and poorly evaluated. The uterus has been removed. No adnexal mass. PERITONEUM/RETROPERITONEUM: No free air or fluid. LYMPH NODES: No pelvic sidewall, retroperitoneal, or mesenteric lymphadenopathy. VESSELS: Limited evaluation without intravenous contrast. The abdominal aorta is nonaneurysmal. Mild atherosclerotic calcification of the right common iliac artery. GI TRACT: The large bowel is notable for diffuse scattered diverticula without wall thickening or adjacent inflammatory change. As before, there are postsurgical changes of the ileocecal region with associated mesenteric inflammatory fat stranding, similar to that seen on 01/11/2019. No drainable fluid collection or definite extraluminal gas. The stomach is partially collapsed with prominent rugal folds. There is no small bowel dilatation to suggest obstruction. BONES AND SOFT TISSUES: Postsurgical changes of midline laparotomy, again similar to 01/11/2019. Otherwise no focal soft tissue abnormalities. No osseous destructive lesions. IMPRESSION: Right lower quadrant postsurgical changes related to appendectomy and likely cecal resection with ileocolic anastomosis. Inflammatory changes of the adjacent mesentery similar to that seen on outside facility CT 01/11/2019. No simi perforation or drainable fluid collection. Geographic hypoattenuation in the right hepatic lobe may represent focal steatosis. Given history of allergy to iodinated contrast, further evaluation with nonemergent MRI of the abdomen with and without gadolinium contrast, liver protocol, is suggested to exclude underlying mass lesion. Large bowel diverticulosis without evidence of diverticulitis. Signed by: Dr. Benny Crawford M.D. on 02/02/2019 8:22 AM
[2019-02-02] MEDS ORDERED: MORPHINE SULFATE INJ 4 MG/ML INJ 1ML IV NR (08:30)
[2019-02-02] MEDS ORDERED: POTASSIUM CHLORIDE 10MEQ/100ML 400 ML IV ONE (08:30)
[2019-02-02] MEDS ORDERED: ACETAMINOPHEN/CODEINE 300MG - 30MG TAB PO PRN (10:30)
[2019-02-02] MEDS: AMLODIPINE BESYLATE 5 MG TAB PO SCH (10:44)
[2019-02-02] MEDS: ENALAPRIL MALEATE 10 MG TAB PO SCH (10:44)
[2019-02-02] MEDS: METOPROLOL TARTRATE 50 MG TAB PO SCH ×2 (10:46→20:46)
[2019-02-02] MEDS ORDERED: PANTOPRAZOLE SOD 40 MG TABEC PO SCH (11:00)
--- NOTE | 2019-02-02 11:11 | NUR ---
multiple warm blankets and continuous updates given and asst to restroom.
--- NOTE | 2019-02-02 11:25 | NUR ---
received report from wilver rowell from [facility] ER. awaiting for pt to arrive to unit
--- NOTE | 2019-02-02 12:15 | NUR ---
RECEIVED PT TO FLOOR [id number]. PT C/O PAIN TO ABD 710 PT RECEIVED MORPHINE AT STANDING ER AT 1100 WILL WAIT UNTIL DUE. PT IS ON IV FLUIDS TO THE RIGHT FA 20 SITE IS CLEAN AND DRY PT IS NPO AT THIS TIME. WILL CONTINUE TO CARE FOR PT AT THIS TIME, SIDE RAILSX2, BED WHEELS LOCKED , CALL LIGHT IS WITHIN EASY REACH,INSTRUCTED TO CALL FOR ASSISTANCE IF NEEDED
[2019-02-02 12:40] VITALS: BP 145/97
[2019-02-02 12:49] VITALS: BP 145/97
[2019-02-02 12:50] VITALS: BP 145/97
[2019-02-02] MEDS ORDERED: INFLUENZA VIRUS VAC SPLIT INJ 0.5 ML SYR IM SCH (13:11)
[2019-02-02] MEDS: ONDANSETRON HCL INJ 2MG/ML 2ML 2 MG/ML VIAL IV PRN ×2 (15:22→19:24)
[2019-02-02] MEDS: MORPHINE SULFATE INJ 4 MG/ML INJ 1ML IV PRN ×2 (15:22→19:51)
[2019-02-02 15:59] VITALS: BP 148/87
--- NOTE | 2019-02-02 16:59 | NUR ---
SPOKE WITH MD Priyanka BAILEY STATES PT CAN HAVE A CLEAR LIQUID DIET FOR NOW
[2019-02-02] MEDS ORDERED: MAGNESIUM SULF 1GRAM/DEXTROSE 300 ML IV ONE (18:00)
--- NOTE | 2019-02-02 18:47 | NUR ---
md huizar has rounded and put an order for 3 bag of mag 1g. ordered a mag lab stat per protocol before administering meds at this time
[2019-02-02] MEDS: KCL 20MEQ/.9 SOD CHL 1,000 ML IV SCH (19:24)
[2019-02-02] MEDS: METRONIDAZOLE 500MG/NS 100ML 100 ML IV SCH (19:25)
--- NOTE | 2019-02-02 19:25 | NUR ---
getachew huizar for critical potassium lab awaiting for call back
[2019-02-02 20:46] VITALS: BP 166/96
[2019-02-02] MEDS: CHOLESTYRAMINE 4 GM PACKET PO SCH (20:48)
--- NOTE | 2019-02-02 20:57 | NUR ---
DR DIAMOND CALLED BACK AND STATED TO CALL NEPHROLOGY WITH CRITICAL LAB RESULT.PAGED DR ANDERS AT THIS TIME.
--- NOTE | 2019-02-02 21:00 | NUR ---
DR DARA JEAN AT THIS TIME. Addendum: 02/03/19 at 0640 by Cassy Guerrero RN DR CHAGO JEAN NOT DR DIAMOND.
--- NOTE | 2019-02-02 21:13 | NUR ---
DR ALONSO(DIRECTOR BUSINESS INTELLIGENCE FOR DR ANDERS) CALLED BACK.NOTIFIED ABOUT THE CRITICAL POTASSIUM LEVEL AND MAGNESIUM LEVEL.N.O'S RECEIVED READ BACK AND VERIFIED.
[2019-02-02] MEDS: POTASSIUM CHLORIDE 10MEQ EA PO SCH (21:39)
[2019-02-02] MEDS ORDERED: METRONIDAZOLE 500MG/NS 100ML 100 ML IV SCH (22:00)
[2019-02-02] MEDS ORDERED: PANTOPRAZOLE 40 MG 10ML VIAL IV STA (23:24)
[2019-02-03] VITALS (7 sets, daily range): BP systolic 124–144; BP diastolic 83–95
[2019-02-03] MEDS: ONDANSETRON HCL INJ 2MG/ML 2ML 2 MG/ML VIAL IV PRN ×6 (00:05→23:25)
[2019-02-03] MEDS: MORPHINE SULFATE INJ 4 MG/ML INJ 1ML IV PRN ×6 (00:07→23:25)
[2019-02-03] MEDS: METOCLOPRAMIDE HCL 10 MG/2ML VIAL IV SCH ×5 (00:11→23:25)
[2019-02-03] MEDS: PANTOPRAZOL 40MG/SOD CHL 0.9% 250 ML IV SCH ×2 (00:30→09:49)
--- NOTE | 2019-02-03 00:33 | History and Physical ---
HISTORY OF PRESENT ILLNESS: This is a 43-year-old female patient of mine, presented to the Emergency Room with complaint of persistent vomiting, diarrhea, and abdominal pain. The patient was evaluated in the [facility] Room with [facility] and the patient was having severe hypokalemia, her potassium was 2.2, so the patient was subsequently admitted. The patient had a recent surgery with exploratory lap and ileocolectomy and the patient had then second admission for diverticulitis. Then, patient was just discharged 10 days ago and then patient was continued to have vomiting and diarrhea. Yesterday, the patient had seen the GI doctor, Dr. Kwong, and was advised to come to the hospital and [facility]. The patient has a CT scan done, which showed large bowel diverticulitis but no obstruction or no fluid collection. ALLERGIES: THE PATIENT IS ALLERGIC TO ASPIRIN, BUTORPHENOL AND IODINE. PAST SURGICAL HISTORY: The patient had a recent surgery of the right ileocolectomy and exploratory laparotomy, hysterectomy, right breast augmentation surgery, knee surgery, tonsillectomy, and cholecystectomy. FAMILY HISTORY: Hypertension. OTHER MEDICAL HISTORY: Hypertension and type 2 diabetes mellitus. REVIEW OF SYSTEMS: Abdominal pain, nausea, vomiting, diarrhea, and severe weakness. PHYSICAL EXAMINATION: GENERAL: She is a young female patient lying in the bed, not in any acute distress. VITAL SIGNS: Temperature 98, pulse rate 88, respirations 20, blood pressure 110/70. HEENT: Normocephalic, atraumatic. NECK: No JVD. No lymphadenopathy. LUNGS: Bilateral equal fair air entry. No rales. No rhonchi. ABDOMEN: Bowel sounds present. Abdomen soft. NEUROLOGIC: No focal neurological deficit. ADMITTING IMPRESSION/DIAGNOSES: Abdominal pain, severe nausea and vomiting, gastroenteritis, severe hypokalemia with potassium of 2.2, history of recent colectomy, hypertension, and diabetes mellitus. PLAN: The patient will be admitted with above diagnoses. The patient will get IV fluids and IV potassium replacement and we will obtain GI consultation with Dr. Kwong. Give the patient potassium and magnesium supplement. They will obtain magnesium level and also give the patient cholestyramine to stop diarrhea. We will put the patient on IV Flagyl. Dileep Carballo MD [facility]ARATH[facility] /[id number] MTDD
[2019-02-03] MEDS: POTASSIUM CHLORIDE 10MEQ EA PO SCH ×2 (01:43→05:30)
[2019-02-03] MEDS: METRONIDAZOLE 500MG/NS 100ML 100 ML IV SCH ×3 (03:30→20:10)
[2019-02-03] MEDS: MAGNESIUM SULF 1GRAM/DEXTROSE 100 ML IV SCH ×3 (04:15→06:15)
[2019-02-03] MEDS: KCL 20MEQ/.9 SOD CHL 1,000 ML IV SCH ×2 (06:37→14:00)
[2019-02-03 07:06] LABS: BASOPHILS % 0.5 % (0.0-1.0); EOSINOPHILS # (AUTO) 0.2 (0.0-0.4); EOSINOPHILS % 2.4 % (0.0-6.0); HEMATOCRIT 37.8 % (34.2-44.1); LYMPHOCYTES # (AUTO) 2.5 (1.0-3.2); LYMPHOCYTES % 39.9 % (18.0-39.1); MEAN CORPUSCULAR HEMOGLOBIN 29.7 pg (28-32); MEAN CORPUSCULAR HGB CONC 31.7 g/dL (31-35); MEAN CORPUSCULAR VOLUME 93.6 fL (81-99); MONOCYTES # (AUTO) 0.4 (0.2-0.8); NEUTROPHILS # (AUTO) 3.2 (2.1-6.9); NEUTROPHILS % 50.9 % (38.7-80.0); PLATELET COUNT 176 x10e3/uL (140-360); RED BLOOD COUNT 4.04 x10e6/uL (3.6-5.1)
[2019-02-03 07:14] LABS: ALANINE AMINOTRANSFERASE 61 IU/L (0-55); ALBUMIN 3.6 g/dL (3.5-5.0); ALBUMIN/GLOBULIN RATIO 1.1 (0.8-2.0); ALKALINE PHOSPHATASE 87 IU/L (40-150); ANION GAP 11.6 mmol/L (8-16); BLOOD UREA NITROGEN < 5 mg/dL (7-26); CALCIUM 8.6 mg/dL (8.4-10.2); CARBON DIOXIDE 25 mmol/L (22-29); CHLORIDE 109 mmol/L (98-107); CREATININE, SERUM 0.72 mg/dL (0.57-1.11); EST GLOMERULAR FILTRATION RATE > 60 ML/MIN (60-); GLUCOSE 112 mg/dL (74-118); MAGNESIUM 2.4 MG/DL (1.3-2.1); POTASSIUM 3.6 mmol/L (3.5-5.1); SODIUM 142 mmol/L (136-145)
[2019-02-03 07:16] LABS: BUN/CREATININE RATIO 7 (6-25)
--- NOTE | 2019-02-03 07:24 | NUR ---
REPORT GIVEN TO ONCOMING NURSE.PT RESTING IN BED WITH NO S/S OF DISTRESS.
[2019-02-03 08:19] LABS: WBC,FECAL (FECAL LACTOFERRIN) NEGATIVE (NEGATIVE)
[2019-02-03] MEDS: METOPROLOL TARTRATE 50 MG TAB PO SCH ×2 (08:49→21:40)
[2019-02-03] MEDS: AMLODIPINE BESYLATE 5 MG TAB PO SCH (08:49)
[2019-02-03] MEDS: ENALAPRIL MALEATE 10 MG TAB PO SCH (08:49)
[2019-02-03] MEDS: CHOLESTYRAMINE 4 GM PACKET PO SCH ×4 (08:49→23:25)
[2019-02-03] MEDS: SUCRALFATE 1 GM TAB PO SCH ×4 (08:49→21:40)
[2019-02-03] MEDS: DICYCLOMINE HCL 20 MG TAB PO SCH ×4 (08:49→21:40)
[2019-02-03 09:08] LABS: C DIFFICILE TOXIN A&B AMP PROB **POSITIVE** (NEGATIVE)
--- NOTE | 2019-02-03 09:14 | NUR ---
PAGED MD DIAMOND REGARDING POSITIVE C DIFF , AWAITING FOR CALL BACK
--- NOTE | 2019-02-03 09:18 | NUR ---
PT SISTER CAMDEN [phone], PT RETURN FROM PRIOR VISIT SAME REASON.
--- NOTE | 2019-02-03 09:27 | NUR ---
Savannah DIAMOND AND Priyanka BAILEY AWARE OF POSITIVE C DIFF AT THIS TIME VANC PO STARTED PER Priyanka BAILEY ORDERS
[2019-02-03] MEDS: VANCOMYCIN 250MG/5ML ORAL SOLN PO SCH ×5 (09:49→22:20)
--- NOTE | 2019-02-03 09:53 | NUR ---
SPOKE TO TIA RN REGARDING PT POSITIVE FOR C DIFF. STATES SHE WILL RELATE MESS TO AUTOMOBILE RELOCATION ENGINEER AT THIS TIME
--- NOTE | 2019-02-03 14:31 | NUR ---
called report to [facility] in med surg 3 . transferring pt upstairs at this time
--- NOTE | 2019-02-03 14:58 | NUR ---
RECEIVED PATIENT FROM MED SURG 1- PATIENT ARRIVED ON UNIT PER BED. PATIENT IS IN STABLE CONDITION WITH NO S/S OF RESPIRATORY DISTRESS. PATIENT STATES CURRENT PAIN A 6/ AND RECENTLY RECEIVED PAIN MEDICATION. TELEMETRY APPLIED. IV FLUIDS INFUSING. CALL LIGHT IS WITHIN REACH OF PATIENT, PATIENT INSTRUCTED TO CALL FOR ASSISTANCE NEEDED.
--- NOTE | 2019-02-03 18:06 | Consultation ---
DATE OF CONSULTATION: Nephrology Consultation REASON FOR CONSULTATION: Acute kidney injury, volume depletion, and electrolyte disturbances. Ms. Noyola is a 43-year-old female with following problem list: 1. History of hypertension. 2. Status post right hemicolectomy. 3. History of right ileocolectomy. 4. History of hysterectomy, tonsillectomy, and cholecystectomy. 5. History of diabetes mellitus, type 2, currently diet controlled as she has lost lot of weight. HISTORY OF PRESENT ILLNESS: The patient was admitted after having presented to the emergency room with persistent vomiting, diarrhea, and abdominal pain. The patient was found with hypokalemia and dehydration. At this point in time, she remains n.p.o., but her loose stools and vomiting have mostly subsided. PAST MEDICAL HISTORY: As above. History of diverticulitis, hypertension, and diabetes mellitus type 2. REVIEW OF SYSTEMS: Improved abdominal pain, nausea, vomiting, diarrhea, and weakness, she is feeling better. PHYSICAL EXAMINATION: GENERAL: Adult female, in no acute distress. VITAL SIGNS: Blood pressure 166/96, heart rate 77 per minute, and temperature 97.5 degrees Fahrenheit. SHEENT: Fundi not visualized. Conjunctiva anicteric. Mucosa moist. Head, normocephalic and atraumatic. NECK: Supple. No JVD. No lymphadenopathy. LUNGS: Bilaterally clear to auscultation. HEART: Normal heart sounds. No additional sounds. ABDOMEN: Soft, nontender. No rebound tenderness. Could not appreciate organomegaly. Obese. LABORATORY FINDINGS: Noted and reviewed. ASSESSMENT AND PLAN: 1. Acute kidney injury. The patient's BUN and creatinine are stable. 2. Hypokalemia, correcting. She is to remain on the potassium containing intravenous fluids. 3. Hypomagnesemia. Needs to be aggressively supplemented in order to maintain the potassium in normal range. DISPOSITION: I have discussed my evaluation, assessment, and plan of care with the patient in all details. All her questions were answered to her satisfaction until she had none. MD MATTIE Salmeron/MODL /[id number]
--- NOTE | 2019-02-03 19:21 | NUR ---
PATIENT IS IN STABLE CONDITION WITH NO S/S OF RESPIRATORY DISTRESS. PATIENT RECEIVED MORPHINE AND ZOFRAN FOR ABD PAIN 07/10. IV FLUIDS INFUSING. CALL LIGHT IS WITHIN REACH, PATIENT INSTRUCTED TO CALL FOR ASSISTANCE NEEDED. BEDSIDE REPORT GIVEN TO ONCOMING NURSE.
[2019-02-03] MEDS: PANTOPRAZOL 40MG/SOD CHL 0.9% 50 ML IV SCH ×2 (20:15→21:00)
[2019-02-04] VITALS (7 sets, daily range): BP systolic 132–155; BP diastolic 82–106
[2019-02-04] MEDS: PANTOPRAZOL 40MG/SOD CHL 0.9% 50 ML IV SCH ×4 (02:00→18:00)
[2019-02-04] MEDS: METRONIDAZOLE 500MG/NS 100ML 100 ML IV SCH ×3 (03:37→20:08)
[2019-02-04] MEDS: MORPHINE SULFATE INJ 4 MG/ML INJ 1ML IV PRN ×5 (04:35→21:35)
[2019-02-04] MEDS: ONDANSETRON HCL INJ 2MG/ML 2ML 2 MG/ML VIAL IV PRN ×5 (04:35→21:35)
[2019-02-04] MEDS: METOCLOPRAMIDE HCL 10 MG/2ML VIAL IV SCH ×4 (05:08→23:40)
[2019-02-04] MEDS: VANCOMYCIN 250MG/5ML ORAL SOLN PO SCH ×4 (05:08→23:40)
[2019-02-04 08:22] LABS: ALANINE AMINOTRANSFERASE 49 IU/L (0-55); ALBUMIN 3.5 g/dL (3.5-5.0); ALBUMIN/GLOBULIN RATIO 1.1 (0.8-2.0); ALKALINE PHOSPHATASE 77 IU/L (40-150); ANION GAP 10.4 mmol/L (8-16); BLOOD UREA NITROGEN < 5 mg/dL (7-26); CARBON DIOXIDE 25 mmol/L (22-29); CHLORIDE 110 mmol/L (98-107); CREATININE, SERUM 0.79 mg/dL (0.57-1.11); EST GLOMERULAR FILTRATION RATE > 60 ML/MIN (60-); GLUCOSE 106 mg/dL (74-118); POTASSIUM 3.4 mmol/L (3.5-5.1); SODIUM 142 mmol/L (136-145)
[2019-02-04 08:23] LABS: BUN/CREATININE RATIO 6 (6-25)
[2019-02-04] MEDS: DICYCLOMINE HCL 20 MG TAB PO SCH ×4 (08:40→21:37)
[2019-02-04] MEDS: METOPROLOL TARTRATE 50 MG TAB PO SCH ×2 (08:40→21:37)
[2019-02-04] MEDS: AMLODIPINE BESYLATE 5 MG TAB PO SCH (08:40)
[2019-02-04] MEDS: CHOLESTYRAMINE 4 GM PACKET PO SCH ×4 (08:40→21:00)
[2019-02-04] MEDS: ENALAPRIL MALEATE 10 MG TAB PO SCH (08:40)
[2019-02-04] MEDS: SUCRALFATE 1 GM TAB PO SCH ×4 (08:40→21:37)
[2019-02-04] MEDS: KCL 20MEQ/.9 SOD CHL 1,000 ML IV SCH ×3 (18:00→20:00)
--- NOTE | 2019-02-04 19:12 | NUR ---
PATIENT IS IN STABLE CONDITION WITH NO S/S OF RESPIRATORY DISTRESS. PATIENT RECEIVED MORPHINE AND ZOFRAN RECENTLY. IV FLUIDS INFUSING. TELEMETRY APPLIED. CALL LIGHT IS WITHIN REACH, PATIENT INSTRUCTED TO CALL FOR ASSISTANCE NEEDED. BEDSIDE REPORT GIVEN TO ONCOMING NURSE
--- NOTE | 2019-02-04 23:25 | NUR ---
DR. Priyanka BAILEY DOING HIS ROUNDS. NEW ORDER RCV TO ADVANCE DIET TO [facility] SOFT.
--- NOTE | 2019-02-04 23:30 | NUR ---
PT C/O PAIN TO LEFT FA IV SITE. IV REMOVED WITH TIP INTACT. PRESSURE DRESSING APPLIED. NEW IV STARTED TO RIGHT WRIST 22G X1. ATTEMPT.
[2019-02-05] VITALS (8 sets, daily range): BP systolic 114–154; BP diastolic 57–98
[2019-02-05] MEDS: MORPHINE SULFATE INJ 4 MG/ML INJ 1ML IV PRN ×4 (01:40→20:55)
[2019-02-05] MEDS: ONDANSETRON HCL INJ 2MG/ML 2ML 2 MG/ML VIAL IV PRN ×2 (01:40→05:43)
[2019-02-05] MEDS: PANTOPRAZOL 40MG/SOD CHL 0.9% 50 ML IV SCH ×3 (01:47→08:30)
[2019-02-05] MEDS: METRONIDAZOLE 500MG/NS 100ML 100 ML IV SCH ×3 (03:14→21:00)
[2019-02-05] MEDS: VANCOMYCIN 250MG/5ML ORAL SOLN PO SCH ×3 (05:30→17:54)
[2019-02-05] MEDS: METOCLOPRAMIDE HCL 10 MG/2ML VIAL IV SCH ×3 (05:30→17:54)
[2019-02-05] MEDS: KCL 20MEQ/.9 SOD CHL 1,000 ML IV SCH ×2 (06:00→16:00)
[2019-02-05 06:51] LABS: BASOPHILS % 0.4 % (0.0-1.0); EOSINOPHILS # (AUTO) 0.2 (0.0-0.4); EOSINOPHILS % 3.3 % (0.0-6.0); HEMATOCRIT 34.6 % (34.2-44.1); HEMOGLOBIN 11.5 g/dL (12.0-16.0); LYMPHOCYTES # (AUTO) 2.6 (1.0-3.2); LYMPHOCYTES % 54.4 % (18.0-39.1); MEAN CORPUSCULAR HEMOGLOBIN 30.2 pg (28-32); MEAN CORPUSCULAR HGB CONC 33.2 g/dL (31-35); MEAN CORPUSCULAR VOLUME 90.8 fL (81-99); MONOCYTES # (AUTO) 0.3 (0.2-0.8); MONOCYTES % 6.9 % (4.4-11.3); NEUTROPHILS # (AUTO) 1.7 (2.1-6.9); NEUTROPHILS % 34.8 % (38.7-80.0); PLATELET COUNT 172 x10e3/uL (140-360); RED BLOOD COUNT 3.81 x10e6/uL (3.6-5.1); RED CELL DISTRIBUTION WIDTH 12.5 % (11.7-14.4)
[2019-02-05 07:23] LABS: ALANINE AMINOTRANSFERASE 40 IU/L (0-55); ALBUMIN 3.4 g/dL (3.5-5.0); ALBUMIN/GLOBULIN RATIO 1.1 (0.8-2.0); ALKALINE PHOSPHATASE 79 IU/L (40-150); ANION GAP 11.9 mmol/L (8-16); BLOOD UREA NITROGEN < 5 mg/dL (7-26); CALCIUM 8.8 mg/dL (8.4-10.2); CARBON DIOXIDE 28 mmol/L (22-29); CHLORIDE 107 mmol/L (98-107); CREATININE, SERUM 0.75 mg/dL (0.57-1.11); EST GLOMERULAR FILTRATION RATE > 60 ML/MIN (60-); GLUCOSE 104 mg/dL (74-118); SODIUM 144 mmol/L (136-145)
[2019-02-05 07:38] LABS: BUN/CREATININE RATIO 7 (6-25); POTASSIUM 2.9 mmol/L (3.5-5.1)
[2019-02-05] MEDS ORDERED: POTASSIUM CHLORIDE 20MEQ/100ML 200 ML IV ONE (08:00)
[2019-02-05] MEDS: ENALAPRIL MALEATE 10 MG TAB PO SCH (08:30)
[2019-02-05] MEDS: AMLODIPINE BESYLATE 5 MG TAB PO SCH (08:30)
[2019-02-05] MEDS ORDERED: POTASSIUM CHLORIDE 20 MEQ TAB CR PO NR (08:30)
[2019-02-05] MEDS: SUCRALFATE 1 GM TAB PO SCH ×4 (08:30→21:00)
[2019-02-05] MEDS: DICYCLOMINE HCL 20 MG TAB PO SCH ×4 (08:30→21:00)
[2019-02-05] MEDS: METOPROLOL TARTRATE 50 MG TAB PO SCH ×2 (08:30→21:01)
[2019-02-05] MEDS: CHOLESTYRAMINE 4 GM PACKET PO SCH ×4 (09:00→21:00)
[2019-02-05] MEDS ORDERED: ONDANSETRON HCL 4 MG ORAL DISINTEGRATING TAB PO PRN (15:45)
[2019-02-05] MEDS: PANTOPRAZOLE SOD 40 MG TABEC PO SCH (16:30)
[2019-02-05] MEDS ORDERED: SODIUM CHLORIDE 0.9% 250ML 250 ML ONE (16:36)
[2019-02-05] MEDS ORDERED: AMILORIDE HCL 5 MG TAB PO ONE (16:45)
--- NOTE | 2019-02-05 16:58 | NUR ---
MD KYLE INTO SEE PT, DISCUSSED POC, MADE AWARE THAT PT REFUSED 1/2 BAG OF IV POTASSIUM, ORDERS NOTED TO COMPLETE REST OF BAG AND IF NOT TOLERATED, GIVE 20 PO POTASSIUM, PT VERBALIZED UNDERSTANDING
[2019-02-05] MEDS: DEXTROSE 5% 1,000 ML IV SCH ×2 (17:00→19:01)
--- NOTE | 2019-02-05 18:07 | NUR ---
PT TOLERATED REST OF BAG OF IV POTASSIUM AT THIS TIME, PT TOLERATING DINNER TRAY AT THIS TIME, CALL LIGHT WITHIN REACH
--- NOTE | 2019-02-05 19:22 | NUR ---
BS rounds completed with morning nurse. Pt lying in bed HOB 45 degrees. Alert to name. Denies pain at this time. Call marti within reach. Will continue to monitor.
--- NOTE | 2019-02-05 20:55 | NUR ---
Medicated with prn Morphine c/o 07/10 abdominal pain.
--- NOTE | 2019-02-05 21:25 | NUR ---
prn Morphine effective decrease abdominal pain 3/10.
[2019-02-06] VITALS (8 sets, daily range): BP systolic 117–175; BP diastolic 79–95
[2019-02-06] MEDS: VANCOMYCIN 250MG/5ML ORAL SOLN PO SCH ×4 (00:30→18:21)
[2019-02-06] MEDS: MORPHINE SULFATE INJ 4 MG/ML INJ 1ML IV PRN ×6 (01:00→21:51)
[2019-02-06] MEDS: METRONIDAZOLE 500MG/NS 100ML 100 ML IV SCH ×3 (04:20→20:11)
[2019-02-06] MEDS: METOCLOPRAMIDE HCL 10 MG/2ML VIAL IV SCH ×4 (06:00→18:21)
--- NOTE | 2019-02-06 07:30 | NUR ---
PT IN BED SLEEPING NO DISTRESS NOTED,NO S/S DISCOMFORT.
[2019-02-06 07:51] LABS: ALANINE AMINOTRANSFERASE 43 IU/L (0-55); ALBUMIN 3.6 g/dL (3.5-5.0); ALKALINE PHOSPHATASE 88 IU/L (40-150); ANION GAP 15.4 mmol/L (8-16); BLOOD UREA NITROGEN < 5 mg/dL (7-26); CARBON DIOXIDE 24 mmol/L (22-29); CHLORIDE 101 mmol/L (98-107); CREATININE, SERUM 0.85 mg/dL (0.57-1.11); EST GLOMERULAR FILTRATION RATE > 60 ML/MIN (60-); GLUCOSE 171 mg/dL (74-118); MAGNESIUM 2.5 MG/DL (1.3-2.1); PHOSPHORUS 4.4 MG/DL (2.3-4.7); POTASSIUM 3.4 mmol/L (3.5-5.1); SODIUM 137 mmol/L (136-145)
[2019-02-06 07:53] LABS: BUN/CREATININE RATIO 6 (6-25)
[2019-02-06] MEDS: CHOLESTYRAMINE 4 GM PACKET PO SCH ×4 (08:28→20:11)
[2019-02-06] MEDS: SUCRALFATE 1 GM TAB PO SCH ×4 (08:28→20:11)
[2019-02-06] MEDS: PANTOPRAZOLE SOD 40 MG TABEC PO SCH ×2 (08:28→16:30)
[2019-02-06] MEDS: METOPROLOL TARTRATE 50 MG TAB PO SCH ×2 (08:28→20:11)
[2019-02-06] MEDS: AMLODIPINE BESYLATE 5 MG TAB PO SCH (08:28)
[2019-02-06] MEDS: DICYCLOMINE HCL 20 MG TAB PO SCH ×4 (08:28→20:11)
[2019-02-06] MEDS: ENALAPRIL MALEATE 10 MG TAB PO SCH (08:29)
[2019-02-06] MEDS ORDERED: SODIUM CHLORIDE 0.9% 1000ML 1,000 ML IV SCH (10:30)
[2019-02-06] MEDS ORDERED: POTASSIUM CHLORIDE 20 MEQ TAB CR PO NR (16:44)
[2019-02-06] MEDS ORDERED: AMILORIDE HCL 5 MG TAB PO SCH (17:00)
--- NOTE | 2019-02-06 18:22 | NUR ---
PT UP IN BED ,NO S/S DISCOMFORT,IV RESTARTED TO LT FA 20 TOLEATED WELL
--- NOTE | 2019-02-06 19:16 | NUR ---
WALKING ROUNDS PERFORMED, RECEIVED PT LAYING SEMI FOWLERS IN BED, AAOX3, RR EVEN AND NON-LABORED, ON RA. NO S/SX OF DISTRESS NOTED. LEFT PT LAYING SEMI FOWLERS IN BED, BED IN LOW LOCKED POSITION, SIDE RAILS UPX2, CALL LIGHT AND PHONE WITHIN REACH.
--- NOTE | 2019-02-06 20:43 | NUR ---
SPOKE WITH MD QUIÑONES COVERING FOR MD ANDERS CONCERNING AMILORIDE ORDER A ONE TIME DOSE OR SCHEDULED. MD QUIÑONES SAID TO GIVE ONE TIME DOSE AND CLARIFY SCHEDULED DOSE WITH MD ANDERS IN AM.
[2019-02-07] VITALS: BP 132/92
[2019-02-07] MEDS: VANCOMYCIN 250MG/5ML ORAL SOLN PO SCH ×2 (00:46→05:12)
[2019-02-07] MEDS: METOCLOPRAMIDE HCL 10 MG/2ML VIAL IV SCH ×2 (00:46→05:12)
[2019-02-07] MEDS: MORPHINE SULFATE INJ 4 MG/ML INJ 1ML IV PRN ×3 (01:52→10:35)
[2019-02-07] MEDS: METRONIDAZOLE 500MG/NS 100ML 100 ML IV SCH (03:41)
[2019-02-07 04:00] VITALS: BP 143/90
[2019-02-07 06:48] LABS: BASOPHILS % 0.2 % (0.0-1.0); EOSINOPHILS # (AUTO) 0.1 (0.0-0.4); EOSINOPHILS % 2.8 % (0.0-6.0); HEMATOCRIT 34.6 % (34.2-44.1); HEMOGLOBIN 11.3 g/dL (12.0-16.0); LYMPHOCYTES # (AUTO) 2.4 (1.0-3.2); LYMPHOCYTES % 51.3 % (18.0-39.1); MEAN CORPUSCULAR HEMOGLOBIN 29.8 pg (28-32); MEAN CORPUSCULAR HGB CONC 32.7 g/dL (31-35); MEAN CORPUSCULAR VOLUME 91.3 fL (81-99); MONOCYTES # (AUTO) 0.3 (0.2-0.8); MONOCYTES % 7.1 % (4.4-11.3); NEUTROPHILS # (AUTO) 1.8 (2.1-6.9); NEUTROPHILS % 38.4 % (38.7-80.0); PLATELET COUNT 156 x10e3/uL (140-360); RED BLOOD COUNT 3.79 x10e6/uL (3.6-5.1); RED CELL DISTRIBUTION WIDTH 12.8 % (11.7-14.4)
[2019-02-07 07:12] LABS: ALANINE AMINOTRANSFERASE 32 IU/L (0-55); ALBUMIN 3.2 g/dL (3.5-5.0); ALKALINE PHOSPHATASE 77 IU/L (40-150); ANION GAP 10.5 mmol/L (8-16); BLOOD UREA NITROGEN 6 mg/dL (7-26); BUN/CREATININE RATIO 8 (6-25); CALCIUM 8.8 mg/dL (8.4-10.2); CARBON DIOXIDE 27 mmol/L (22-29); CHLORIDE 105 mmol/L (98-107); CREATININE, SERUM 0.76 mg/dL (0.57-1.11); EST GLOMERULAR FILTRATION RATE > 60 ML/MIN (60-); GLUCOSE 137 mg/dL (74-118); POTASSIUM 3.5 mmol/L (3.5-5.1); SODIUM 139 mmol/L (136-145)
--- NOTE | 2019-02-07 07:33 | NUR ---
PATIENT ASSISTED TO THE RESTROOM AND BACK TO BED. STOOL SPECIMEN COLLECTED AND SENT TO THE LAB. BED IN LOWER POSITION, CALL LIGHT AT REACH.
[2019-02-07 07:40] VITALS: BP 130/76
[2019-02-07] MEDS: SUCRALFATE 1 GM TAB PO SCH (07:50)
[2019-02-07] MEDS: PANTOPRAZOLE SOD 40 MG TABEC PO SCH (07:50)
[2019-02-07 09:00] VITALS: BP 130/73
[2019-02-07] MEDS: CHOLESTYRAMINE 4 GM PACKET PO SCH (09:00)
[2019-02-07] MEDS: DICYCLOMINE HCL 20 MG TAB PO SCH (09:22)
[2019-02-07] MEDS: AMLODIPINE BESYLATE 5 MG TAB PO SCH (09:23)
[2019-02-07] MEDS: ENALAPRIL MALEATE 10 MG TAB PO SCH (09:23)
[2019-02-07] MEDS: METOPROLOL TARTRATE 50 MG TAB PO SCH (09:23)
[2019-02-07] MEDS ORDERED: POTASSIUM CHLORIDE 10MEQ EA PO ONE (10:15)
[2019-02-07] MEDS ORDERED: ACIDOPHILUS1 EAC1 PO (10:57)
[2019-02-07] MEDS ORDERED: FLAGYL250 MG PO (10:57)
[2019-02-07] MEDS ORDERED: POTASSIUM CHLO10 ME1 PO (10:58)
--- NOTE | 2019-02-07 11:35 | NUR ---
PATIENT DISCHARGED HOME. DISCHARGE INSTRUCTIONS, PRESCRIPTION, AND FOLLOW UP GIVEN TO PATIENT, SHE VERBALIZED UNDERSTANDING. IV TO LEFT HAND REMOVED WITH TIP INTACT. ALL PERSONAL ITEMS TAKEN WITH PATIENT. REFUSED WHEEL CHAIR, BUT WAS ACCOMPANIED BY HOSPITAL STAFF TO FRONT LOBBY IN STABLE CONDITION.
--- NOTE | 2019-02-08 09:04 | Discharge Summary ---
HOSPITAL COURSE: This is a 43-year-old female patient presented to the emergency room with a complaint of severe vomiting, severe diarrhea, and severe hypokalemia. She has had CAD. The patient was evaluated in the [facility] Emergency Room. The patient also had a severe nausea and vomiting. ADMITTING IMPRESSION AND DIAGNOSES: Severe gastroenteritis, diarrhea secondary to Clostridium difficile and severe hypokalemia. Potassium of only 2.3, very critical. The patient is status post ileocolectomy and hypertension and recurrent abdominal pain with diverticulitis. The patient was admitted with above diagnoses. The patient was given IV Flagyl and p.o. vancomycin. The patient was given multiple potassium IV infusions. To bring the potassium up and patient was also given magnesium and IV fluids and patient got better. Now upon stabilization, the patient will be discharged home and the patient will be followed up as outpatient. The patient is being discharged home on p.o. vancomycin and p.o. Flagyl and potassium daily. MD ELLEN Holder/TONIE /[id number]
== END 2019-02-07 11:46 | disposition home or self-care (01) | DRG 372 ==
LOC: FSED 05:47 → ERHOLD 07:47 → UNDOADMOB 07:53 → ERHOLD 07:53 → OBSVTOIN 10:20 → MED/SURG 12:10 → MED/SURG3 02-03 14:51
PROVIDERS: ADMIT Internal Medicine; ATTEND Internal Medicine
DX: A04.72 Enterocolitis due to Clostridium difficile, not specified as recurrent (principal); K57.32 Diverticulitis of large intestine without perforation or abscess without bleeding; N17.9 Acute kidney failure, unspecified; K50.90 Crohn's disease, unspecified, without complications; E87.6 Hypokalemia; I10 Essential (primary) hypertension; Z98.0 Intestinal bypass and anastomosis status; Z88.6 Allergy status to analgesic agent; Z88.5 Allergy status to narcotic agent; Z88.8 Allergy status to other drugs, medicaments and biological substances; E83.42 Hypomagnesemia; E11.43 Type 2 diabetes mellitus with diabetic autonomic (poly)neuropathy; K31.84 Gastroparesis
CPT/HCPCS: 36415; 74176; 80048; 80053; 80076; 81003; 82948; 83630; 83735; 84100; 84132; 85025; 86039; 87045; 87177; 87493; 96360; 99284; J2270; J2405; J2765; J3475; J3480; J7030; J7050; J7070

== ENCOUNTER → 2019-03-05 | Outpatient (CLI) | payer OTHER ==
[~2019-03-05] MED LIST changes: +ACIDOPHILUS1 EAC1 PO; +FLAGYL250 MG PO; -MAGNESIUM SULF 1GRAM/DEXTROSE 100 ML IV SCH; +POTASSIUM CHLO10 ME1 PO
--- NOTE | 2019-03-05 15:31 | Diagnostic Imaging Report ---
EXAM: Modified barium swallow with Speech Pathologist INDICATION: ^[id number] ^1200 ^GASTRITIS W/O BLEEDING/NAUSEA COMPARISON: None available. RADIATION DOSE: Fluoroscopy Time: 0.5 min Air Kerma (AK) value has been reviewed. It is below the limits set by the Radiation Protocol Committee (RPC) committee. FINDINGS: See impression IMPRESSION: No evidence of penetration or aspiration. Please see speech pathology report for detailed description and recommendations. Signed by: Dr. Benny Crawford M.D. on 03/05/2019 3:28 PM
== END ==
LOC: DX 10:53
PROVIDERS: ATTEND Internal Medicine Gastroenterology
DX: R11.2 Nausea with vomiting, unspecified (principal); K29.70 Gastritis, unspecified, without bleeding; K52.89 Other specified noninfective gastroenteritis and colitis
CPT/HCPCS: 74230